=== PATIENT | female | born 1960 | race Caucasian/White ===

== ENCOUNTER 2016-11-15 08:32 | Emergency (ER) | payer MEDICAID ==
--- NOTE | 2016-11-15 08:41 | EDPHY ---
H & P Time Seen by Provider: 11/15/16 08:32 HPI/ROS: CHIEF COMPLAINT: Left shoulder pain HISTORY OF PRESENT ILLNESS: Patient is a 56-year-old female from the [facility] with a history of heroin abuse who comes to the emergency department complaining of left shoulder pain. She states that she has chronic left shoulder pain and that is chronically dislocated. She states that she felt at shift a little last night in that is been hurting more since then. She has normal range of motion in her elbow and wrist. She can lift herself off of the gurney to transfer to the other gurney. She states that she cannot lift her arm above 90 degrees however. She has been referred to Orthopedics and to have an MRI but she has not done these yet. She does not think that this is cardiac. She denies chest pain or shortness of breath. She does state that she has chronic neck problems as well. REVIEW OF SYSTEMS: Constitutional: denies: chills, fever, recent illness, recent injury EENTM: denies: blurred vision, double vision, nose congestion Respiratory: denies: cough, shortness of breath Cardiac: denies: chest pain, irregular heart rate, lightheadedness, palpitations Gastrointestinal/Abdominal: denies: abdominal pain, diarrhea, nausea, vomiting, blood streaked stools Genitourinary: denies: dysuria, frequency, hematuria, pain Musculoskeletal: See HPI Skin: denies: lesions, rash, jaundice, bruising Neurological: denies: headache, numbness, paresthesia, tingling, dizziness, weakness Hematologic/Lymphatic: denies: blood clots, easy bleeding, easy bruising Immunologic/allergic: denies: HIV/AIDS, transplant EXAM: GENERAL: Well-appearing, well-nourished and in no acute distress. HEAD: Atraumatic, normocephalic. EYES: Pupils equal round and reactive to light, extraocular movements intact, sclera anicteric, conjunctiva are normal. ENT: TMs normal, nares patent, oropharynx clear without exudates. Moist mucous membranes. NECK: Normal range of motion, supple without lymphadenopathy or JVD. LUNGS: Breath sounds clear to auscultation bilaterally and equal. No wheezes rales or rhonchi. HEART: Regular rate and rhythm without murmurs, rubs or gallops. ABDOMEN: Soft, nontender, normoactive bowel sounds. No guarding, no rebound. No masses appreciated. BACK: No CVA tenderness, no spinal tenderness, step-offs or deformities EXTREMITIES: Left shoulder pain, limited range of motion, normal pulses and sensation distally. NEUROLOGICAL: Cranial nerves II through XII grossly intact. Normal speech, normal gait. 5/5 strength, normal movement in all extremities, normal sensation PSYCH: Normal mood, normal affect. SKIN: Warm, dry, normal turgor, no visible rashes or lesions. Source: Patient Exam Limitations: No limitations - Medical/Surgical History Hx Asthma: No Hx Chronic Respiratory Disease: No Hx Diabetes: No Hx Cardiac Disease: No Hx Renal Disease: No Hx Cirrhosis: No Hx Alcoholism: Yes - Family History Significant Family History: Hypertension - Social History Smoking Status: Current every day smoker Alcohol Use: Heavy Drug Use: Other Constitutional: Initial Vital Signs Temperature (C) 36.5 C 11/15/16 08:55 Heart Rate 81 11/15/16 08:55 Respiratory Rate 16 11/15/16 08:55 Blood Pressure 118/78 11/15/16 08:55 O2 Sat (%) 92 11/15/16 08:55 O2 Delivery Mode Room Air Allergies/Adverse Reactions: No Known Allergies Allergy (Unverified 11/15/16 08:55) Home Medications: Medication Instructions Recorded GABAPENTIN 11/15/16 Lisinopril 11/15/16 Medical Decision Making - Diagnostics EKG Interpretation: An EKG obtained and was read and documented in trace view. Please see trace view for full reading and report. Sinus rhythm, no acute ischemic changes ED Course/Re-evaluation: We discussed the x-ray results. The patient has a chronic dislocation. I recommended we place her in a sling and have her follow up with Orthopedics. She has been told this before and is frustrated. She was asking to have an MRI which at this time is not warranted. She is neurovascularly intact and has normal range of motion. She can even pick herself up off the bed with her arms. She is somewhat frustrated but understands. She was also asking for narcotics which I declined to give her. Differential Diagnosis: Partial list of the Differential diagnosis considered include but were not limited to; left shoulder dislocation, fracture, radiculopathy and although unlikely based on the history and physical exam, I also considered infection, acute coronary disease. I discussed these differential diagnoses and the plan with the patient as well as the usual and expected course. The patient understands that the diagnosis is provisional and that in medicine we are not always correct and that further workup is often warranted. Usual and customary warnings were given. All of the patient's questions were answered. The patient was instructed to return to the emergency department should the symptoms at all worsen or return, otherwise to followup with the physician as we discussed. Departure - Departure Disposition: Home, Routine, Self-Care Clinical Impression: Chronic dislocation of left shoulder Condition: Fair Instructions: Shoulder Dislocation (ED) Referrals: Patient,NotPresent [Unknown] - As per Instructions Jass Montgomery MD [Medical Doctor] - As per Instructions
--- NOTE | 2016-11-15 08:52 | CPEKG ---
Heart Rate: 84 RR Interval: 714 P-R Interval: 140 QRSD Interval: 92 QT Interval: 384 QTC Interval: 454 P [place]: 74 QRS [place]: 34 T Wave [place]: 53 EKG Severity - ABNORMAL ECG - EKG Impression: SINUS RHYTHM EKG Impression: CONSIDER LEFT VENTRICULAR HYPERTROPHY EKG Impression: BORDERLINE INFERIOR Q WAVES Electronically Signed By: Balaji Carmichael 15-Nov-2016 09:02:00
[2016-11-15 10:36] VITALS: BP 125/68; PULSE 86; RESP 18; TEMP 98.2; O2SAT 98
== END 2016-11-15 10:35 | disposition home or self-care (01) ==
DX: M24.412 Recurrent dislocation, left shoulder (principal); F17.200 Nicotine dependence, unspecified, uncomplicated

== ENCOUNTER 2017-03-07 08:04 | Emergency (ER) | payer MEDICAID ==
[2017-03-07 08:12] VITALS: TEMP 97.9
--- NOTE | 2017-03-07 08:18 | EDPHY ---
H & P Time Seen by Provider: 03/07/17 08:18 HPI/ROS: CHIEF COMPLAINT: Left knee/leg pain following fall yesterday HISTORY OF PRESENT ILLNESS: The patient presents the emergency department by paramedics with complaints of left knee and leg pain following a mechanical fall yesterday. The patient reportedly tripped while walking on rocks. She did not strike her head or lose consciousness. She states she has had painful ambulation since that time. She cannot fully weight bear secondary to pain in her left knee and below her left knee. The patient denies any acute numbness or weakness. The patient denies additional complaints. The patient does have a history of narcotic abuse. She was seen in the emergency department in October of this year for right shoulder pain. REVIEW OF SYSTEMS: A comprehensive 10 point review of systems is otherwise negative aside from elements mentioned in the history of present illness. Source: Patient Exam Limitations: No limitations - Personal History Current Tetanus/Diphtheria Vaccine: Unsure Current Tetanus Diphtheria and Acellular Pertussis (TDAP): Unsure - Medical/Surgical History Hx Asthma: No Hx Chronic Respiratory Disease: No Hx Diabetes: No Hx Cardiac Disease: No Hx Renal Disease: No Hx Cirrhosis: No Hx Alcoholism: Yes Hx HIV/AIDS: No Hx Splenectomy or Spleen Trauma: No Other PMH: mitral valve prolapse. chronic L shoulder dislocation - Social History Smoking Status: Current every day smoker - Physical Exam Exam: General Appearance: Alert, disheveled, no acute distress Eyes: Pupils equal and round no pallor or injection ENT, Mouth: Mucous membranes moist Respiratory: There are no retractions, lungs are clear to auscultation Cardiovascular: Regular rate and rhythm Gastrointestinal: Abdomen is soft and nontender, no masses, bowel sounds normal Neurological: A&O, normal motor function, normal sensory exam, normal cranial nerves Skin: Superficial abrasions and old scabs noted to left knee, no cellulitis, no abscess Musculoskeletal: Neck is supple nontender Extremities: Tenderness to palpation left knee, small effusion, tenderness to palpation left proximal tibia/fibula Constitutional: Initial Vital Signs Temperature (C) 36.6 C 03/07/17 08:08 Allergies/Adverse Reactions: No Known Allergies Allergy (Unverified 11/15/16 08:55) Home Medications: Medication Instructions Recorded GABAPENTIN 11/15/16 Lisinopril 11/15/16 Medical Decision Making - Diagnostics Imaging Results: Imaging Impressions Knee X-Ray 03/07/17 08:20 Impression: 1. Mild bone demineralization. 2. Patella radha with pre- and infrapatellar soft tissue swelling. An injury to the patellar tendon is not excluded. This could be further evaluated with MR imaging, if clinically directed. 3. Degenerative features. LEFT TIBIA-FIBULA (AP and Lateral Views, at 8:38 AM): The bones are mildly demineralized; when clinically feasible, a DEXA scan is suggested. The patient has had prior remote ORIF for distal fibular and medial malleolar fractures, which have since healed. There is no periprosthetic lucency. There is no acute fracture or dislocation. Impression: 1. Mild bone demineralization. 2. Sequela of prior ORIF of the medial malleolus and distal fibula. 3. No acute osseous abnormality. Tibia/Fibula X-Ray 03/07/17 08:20 Impression: 1. Mild bone demineralization. 2. Patella radha with pre- and infrapatellar soft tissue swelling. An injury to the patellar tendon is not excluded. This could be further evaluated with MR imaging, if clinically directed. 3. Degenerative features. LEFT TIBIA-FIBULA (AP and Lateral Views, at 8:38 AM): The bones are mildly demineralized; when clinically feasible, a DEXA scan is suggested. The patient has had prior remote ORIF for distal fibular and medial malleolar fractures, which have since healed. There is no periprosthetic lucency. There is no acute fracture or dislocation. Impression: 1. Mild bone demineralization. 2. Sequela of prior ORIF of the medial malleolus and distal fibula. 3. No acute osseous abnormality. ED Course/Re-evaluation: The patient presents to the ED with complaints of left knee extremity pain following a mechanical fall yesterday. The patient has no evidence of an obvious fracture noted on her x-ray. The patient will be provided crutches. She is advised to follow up with our on-call orthopedic surgeon for any unimproved symptoms. She should ice area of swelling. She should weightbear as tolerated. She should use ibuprofen as needed for pain. Differential Diagnosis: Differential diagnosis considered includes fracture, sprain, dislocation Departure - Departure Disposition: Home, Routine, Self-Care Clinical Impression: Contusion of left knee Condition: Good Instructions: Contusion in Adults (ED) Additional Instructions: 1. Take Ibuprofen or Motrin 600 mg by mouth three times a day. 2. Crutches as needed for comfort. 3. Follow up with the orthopedic surgeon you have been referred to for any unimproved symptoms. 4. Apply ice for 20 minutes 4 to 5 times a day for next 3 days. Referrals: John Hart MD [Medical Doctor] - As per Instructions
== END 2017-03-07 09:45 | disposition home or self-care (01) ==
LOC: EDUNIT#
DX: S80.02XA Contusion of left knee, initial encounter (principal); F17.200 Nicotine dependence, unspecified, uncomplicated; W01.0XXA Fall on same level from slipping, tripping and stumbling without subsequent striking against object, initial encounter; Y92.89 Other specified places as the place of occurrence of the external cause; Y99.8 Other external cause status; Y93.01 Activity, walking, marching and hiking

== ENCOUNTER 2017-03-13 13:39 | Inpatient (IN) | payer MEDICAID ==
[2017-03-13] MEDS ORDERED: fentaNYL 100 MCG/2 ML INJ ONE (14:31)
[2017-03-13 14:38] LABS: PLATELET COUNT 240 10^3/uL (150-400)
[2017-03-13] MEDS ORDERED: fentaNYL 100 MCG/2 ML INJ IVP ONE (14:50)
[2017-03-13] MEDS ORDERED: VANCOMYCIN HCL/NORMAL SALINE 250 ML IV ONE (14:51)
[2017-03-13] MEDS ORDERED: ERTAPENEM 1 GM in NS 100 ML IV ONE (14:51)
--- NOTE | 2017-03-13 15:43 | EDPHY ---
H & P Smoking Status: Current every day smoker Time Seen by Provider: 03/13/17 13:48 HPI/ROS: CHIEF COMPLAINT: Infection left leg HISTORY OF PRESENT ILLNESS: 56-year-old homeless female presents to the emergency department with infection to her left leg. Patient states that she tripped over a rock and fell sustaining an abrasion to the anterior aspect of her left knee a few weeks ago. She did not hit her head or lose consciousness. She presented to the emergency department 1 week ago where she had x-rays which were negative for fracture. She presents now to the emergency department with swelling, redness and severe pain in her left leg. She is homeless. Unknown fevers. No chills. Diffuse pain in her left leg. No pain in her groin. No chest pain or difficulty breathing. No abdominal pain. No neck or back pain. REVIEW OF SYSTEMS: Constitutional: No fever, no chills. Eyes: No double or blurry vision. ENT: No sore throat. Respiratory: No cough, no shortness of breath. Cardiac: No chest pain. Gastrointestinal: No abdominal pain, vomiting or diarrhea. Genitourinary: No dysuria. Musculoskeletal: No neck or back pain. Skin: As above. Neurological: No headache. (Ruth Dugan) Past Medical/Surgical History: Mitral valve prolapse, shoulder dislocations (Ruth Dugan) Social History: Homeless (Ruth Dugan) Physical Exam: General Appearance: Alert, no distress. Temperature 37.5degrees. Nontoxic appearing. Eyes: Pupils equal and round. Extraocular motions are all intact. ENT: Mouth: Mucous membranes moist. Respiratory: No wheezing, rhonchi, or rales, lungs are clear to auscultation. Cardiovascular: Regular rate and rhythm. Gastrointestinal: Abdomen is soft and nontender, no masses, no rebound or guarding, bowel sounds normal. Neurological: Alert and oriented x 3, cranial nerves II through XII grossly intact Skin: Left leg reveals diffuse redness and warmth from the knee all the way down to her ankle. She has pedal edema. Diffusely tender to palpate. Limited flexion left knee secondary to pain. No lymphangitis. Musculoskeletal: Nontender to palpate along the cervical, thoracic or lumbar spine. Neck is supple. Extremities: See skin above. No palpable bony tenderness. No evidence of compartment syndrome. Decreased flexion of the left knee secondary to pain and swelling. No obvious signs of septic arthritis. Psychiatric: Patient is oriented X 3, there is no agitation. (Ruth Dugan) Constitutional: Initial Vital Signs Temperature (C) 37.5 C 03/13/17 13:51 Heart Rate 113 H 03/13/17 13:51 Respiratory Rate 16 03/13/17 13:51 Blood Pressure 134/88 H 03/13/17 13:51 O2 Sat (%) 95 03/13/17 13:51 O2 Delivery Mode Room Air Allergies/Adverse Reactions: No Known Allergies Allergy (Verified 03/13/17 13:59) Home Medications: Medication Instructions Recorded Gabapentin [Neurontin 400 MG (*)] 1,200 mg PO TID 03/13/17 Medical Decision Making - Diagnostics Imaging Results: Imaging Impressions Tibia/Fibula X-Ray 03/13/17 15:00 Impression: 1. No acute fracture or destructive osseous lesion. 2. Left ankle hardware. Procedures: Procedure: Abscess drainage. The patient's abscess was located on the left knee. Risks, benefits, alternatives discussed with the patient and consent obtained. The abscess was incised with a #11 blade and large amount of purulent drainage, 150mL, was expressed. The patient tolerated the procedure well. The procedure was performed by myself. (Ruth Dugan) ED Course/Re-evaluation: 56-year-old female with significant cellulitis to her left lower leg. She also had area of fluctuance to the anterior aspect of her left knee just distal to the patella. This was incised, see procedure note. The patient will be admitted to the hospital for IV antibiotics. I also spoke with the on-call surgeon, Dr. Monroy, who also evaluated the patient. I do not appreciate any signs of compartment syndrome. She may require further incision and drainage that is why this general surgeon was contacted. She was started on Invanz and vancomycin in the emergency department. Blood cultures are pending. Wound cultures pending. I do not think this patient is septic. Lactate is 1.5. The patient was also seen and examined by Dr. Bonilla, secondary supervising physician. (Ruth Dugan) Differential Diagnosis: Including but not limited to cellulitis, abscess, contusion, abrasion, osteomyelitis, septic arthritis (Ruth Dugan) Other Provider: Independent physician examination: I independently obtained the following history and physical: The patient sustained a superficial abrasion below the left knee one week ago. She presents to the ED with marked redness and fluctuance to the leg. Examination demonstrates cellulitis with a superficial cutaneous abscess. This was drained by the PA under my supervision. The patient's initial lactic acid is reassuring. She is started on Vancomycin and Invanz after blood and wound cultures were obtained. She will be admitted to the hospital under the care of the hospital. Surgery consultation has been ordered. (Zac Bonilla) - Data Points Laboratory Results: Laboratory Results 03/13/17 14:25 03/13/17 14:25 03/13/17 03/13/17 03/13/17 14:25 14:25 14:25 WBC 11.22 10^3/uL H 10^3/uL (3.80-9.50) RBC 4.98 10^6/uL 10^6/uL (4.18-5.33) Hgb 16.2 g/dL g/dL (12.6-16.3) Hct 43.6 % % (38.0-47.0) MCV 87.6 fL fL (81.5-99.8) MCH 32.5 pg pg (27.9-34.1) MCHC 37.2 g/dL H g/dL (32.4-36.7) RDW 13.0 % % (11.5-15.2) Plt Count 240 10^3/uL 10^3/uL (150-400) MPV 11.5 fL fL (8.7-11.7) Neut % (Auto) 76.4 % H % (39.3-74.2) Lymph % (Auto) 6.5 % L % (15.0-45.0) [place] % (Auto) 14.0 % H % (4.5-13.0) Eos % (Auto) 1.1 % % (0.6-7.6) Baso % (Auto) 1.1 % % (0.3-1.7) Nucleat RBC Rel Count 0.0 % % (0.0-0.2) Absolute Neuts (auto) 8.58 10^3/uL H 10^3/uL (1.70-6.50) Absolute Lymphs (auto) 0.73 10^3/uL L 10^3/uL (1.00-3.00) Absolute Monos (auto) 1.57 10^3/uL H 10^3/uL (0.30-0.80) Absolute Eos (auto) 0.12 10^3/uL 10^3/uL (0.03-0.40) Absolute Basos (auto) 0.12 10^3/uL H 10^3/uL (0.02-0.10) Absolute Nucleated RBC 0.00 10^3/uL 10^3/uL (0-0.01) Immature Gran % 0.9 % % (0.0-1.1) Immature Gran # 0.10 10^3/uL 10^3/uL (0.00-0.10) VBG Lactic Acid 1.5 mmol/L mmol/L (0.7-2.1) Sodium 135 mEq/L mEq/L (134-144) Potassium 3.4 mEq/L L mEq/L (3.5-5.2) Chloride 98 mEq/L mEq/L (97-110) Carbon Dioxide 22 mEq/l mEq/l (22-31) Anion Gap 15 mEq/L mEq/L (8-16) BUN 10 mg/dL mg/dL (7-23) Creatinine 0.5 mg/dL L mg/dL (0.6-1.0) Estimated GFR > 60 Glucose 96 mg/dL mg/dL (70-100) Calcium 8.2 mg/dL L mg/dL (8.5-10.4) Medications Given: Hydromorphone HCl (Dilaudid) 0.2 - 0.4 mg IVP Q4HRS PRN PRN Reason: Pain, Severe Unable to Take PO Stop: 03/23/17 17:50 Last Admin: 03/13/17 18:43 Dose: 0.4 mg Potassium Chloride/Sodium Chloride (Ns W/ 20 Kcl/L) 1,000 mls @ 125 mls/hr IV CONT VIANNEY Stop: 09/09/17 17:59 Last Admin: 03/13/17 18:23 Dose: 1,000 mls Vancomycin/Sodium Chloride (Vancomycin 1 Gm (Premix)) 250 mls @ 250 mls/hr IV Q12H VIANNEY Stop: 04/12/17 18:29 Last Admin: 03/13/17 18:23 Dose: Not Given Nicotine (Nicoderm Cq) 14 mg TD DAILY VIANNEY Stop: 09/09/17 18:14 Last Admin: 03/13/17 18:20 Dose: 14 mg Oxycodone HCl (Oxycodone Ir) 5 - 10 mg PO Q3HRS PRN PRN Reason: Pain, Severe Able to Take PO Stop: 03/23/17 17:50 Last Admin: 03/13/17 19:38 Dose: 5 mg Discontinued Medications Fentanyl (Sublimaze) 50 mcg IVP EDNOW ONE Stop: 03/13/17 14:51 Last Admin: 03/13/17 15:00 Dose: 50 mcg Ertapenem 1 gm/ Sodium (Chloride) 100 mls @ 200 mls/hr IV EDNOW ONE PRN Reason: Protocol Stop: 03/13/17 15:20 Last Admin: 03/13/17 15:22 Dose: 100 mls Vancomycin/Sodium Chloride (Vancomycin 1 Gm (Premix)) 250 mls @ 250 mls/hr IV EDNOW ONE PRN Reason: Protocol Stop: 03/13/17 15:50 Last Admin: 03/13/17 18:11 Dose: 250 mls Sodium Chloride (Ns) 1,000 mls @ 0 mls/hr IV ONCE ONE PRN Reason: Wide Open Stop: 03/13/17 17:55 Last Admin: 03/13/17 18:21 Dose: 1,000 mls Departure - Departure Disposition: [facility] Clinical Impression: Cellulitis of left leg Condition: Fair
[2017-03-13] MEDS ORDERED: GADOBUTROL 10 ML VIAL IVP ONE (16:51)
[2017-03-13] MEDS ORDERED: ONDANSETRON 4 MG/2 ML VIAL IVP PRN (17:51)
[2017-03-13] MEDS ORDERED: ONDANSETRON DISINTEGRATING 4 MG TAB PO PRN (17:51)
[2017-03-13] MEDS ORDERED: NS 1,000 ML IV ONE (17:54)
[2017-03-13] MEDS: oxyCODONE IR 5 MG TAB PO PRN ×2 (18:16→19:38)
[2017-03-13] MEDS: NICOTINE 14 MG/24 HR PATCH TD SCH (18:20)
[2017-03-13] MEDS: NS W/ 20 KCl/L 1,000 ML IV SCH (18:23)
[2017-03-13] MEDS: VANCOMYCIN HCL/NORMAL SALINE 250 ML IV SCH (18:23)
--- NOTE | 2017-03-13 18:31 | GHP ---
[f rep st] HISTORY AND PHYSICAL DATE OF ADMISSION: 03/13/2017 CHIEF COMPLAINT: Left lower extremity pain and redness. HISTORY OF PRESENT ILLNESS: The patient is a 56-year-old homeless female with a history of chronic pain, who presents to the emergency department with left lower extremity pain, redness, and fever. She states about a month ago she fell , landing on a rock, which caused an abrasion on her left knee. She denies hitting her head or any loss of consciousness during that event. She was not seen in the emergency department at that time. However, 1 week ago, she presented to the ED due to pain and swelling around her left knee. At that time , a knee and tib-fib x-ray were performed, which were negative for fracture, though did show some pre and infrapatellar soft tissue swelling. She was not treated with antibiotics at that time. Over the course of the last week, her pain has become more severe. The redness is now circumferential, extending distally, as well as proximally up into her thigh. She began to have some drainage out of the anterior knee abrasion. In addition, she endorses subjective fevers. However, she notes she has not been able to check her temperature given her homeless status. She denies chest pain or shortness of breath. She denies abdominal symptoms, such as nausea, vomiting, diarrhea, dysuria, frequency, or urgency. In the emergency department, she is afebrile and appears nontoxic, though she is tachycardic. She was given a dose of ertapenem and vancomycin. A repeat x-ray was performed, which was again negative for fracture and showed no obvious subcutaneous air. She is admitted to the hospital for further management. PAST MEDICAL HISTORY: 1. Chronic right shoulder pain with history of prior dislocations, on gabapentin. 2. History of mitral valve prolapse. MEDICATIONS: Please see [employer] for complete updated outpatient medication list. ALLERGIES: She has no known drug allergies. SOCIAL HISTORY: The patient is homeless. She smokes a half to 1 pack of cigarettes per day. She reports occasional alcohol and occasional marijuana use. REVIEW OF SYSTEMS: A 10-point review of systems was performed and is negative, except as per HPI. OBJECTIVE: VITAL SIGNS: Temperature is 37.6, blood pressure 119/78, respiratory rate 18, heart rate 111. She is 92% on room air. GENERAL: The patient is awake, alert, and oriented, in no acute distress. HEENT: Head is atraumatic, normocephalic. Pupils equal, round, and reactive to light. Extraocular muscles are intact. Oropharynx is clear. Mucous membranes are moist. NECK: Supple. There is no JVD. HEART: Regular rate and rhythm, without murmur. LUNGS: Clear to auscultation bilaterally. ABDOMEN: Soft, nondistended, nontender, with normoactive bowel tones. EXTREMITIES: Her left lower extremity reveals bright red erythema, which is circumferential around her proximal anterior tibia, extending down to her ankle, as well as proximally into her medial thigh. There is no associated groin lymphadenopathy. There is a marked amount of purulent drainage from her anterior knee abrasion and what looks like a recent bulla that has since been drained. A wound culture is sent. Her extremities are otherwise warm and well perfused, with 2+ peripheral pulses. Tib-fib x-ray in the emergency department is negative for fracture, shows diffuse soft tissue swelling, with no destructive osseous lesions. Fixation plate and screws are noted in the distal fibula and oblique left lateral malleolus, in adequate alignment. Wound gram stain: 4+ GPC's ASSESSMENT/PLAN: The patient is a 56-year-old homeless female who is admitted to the hospital with left lower extremity cellulitis. 1. Left lower extremity purulent cellulitis. She does not meet SIRS criteria for sepsis. Her lactate is normal. She is afebrile. The purulent drainage from her anterior tibia was sent for culture. Blood cultures were obtained. She received a dose of ertapenem and vancomycin in the ED. I suspect staphylococcal organism. Will continue vancomycin while awaiting culture data. Check MRI to rule out any fascial involvement, abscess or focal fluid collection. Surgery has been consulted and will see the patient. I have also requested Infectious Disease consult. She will receive an IV fluid bolus now. Will continue IV fluids overnight and monitor her hemodynamics. Supportive care and pain control. 2. Hypokalemia. Will replace and follow. 3. Tobacco abuse. Nicoderm patch p.r.n. 4. Chronic shoulder pain. We will continue her outpatient gabapentin dose. 5. Deep venous thrombosis prophylaxis, Lovenox. 6. Code status: Patient is full code. 7. Disposition: Patient was admitted to inpatient status. She will require greater than 48 hours' hospitalization for ongoing management of her moderate to severe purulent cellulitis. /[id number]/MODL MTDD
[2017-03-13] MEDS: HYDROmorphONE/DILAUDID 1 MG/ML INJ IVP PRN (18:43)
[2017-03-13] MEDS: GABAPENTIN 400 MG CAP PO SCH (21:40)
[2017-03-14] MEDS: oxyCODONE IR 5 MG TAB PO PRN ×2 (00:15→03:59)
[2017-03-14] MEDS: HYDROmorphONE/DILAUDID 1 MG/ML INJ IVP PRN ×2 (04:42→16:27)
[2017-03-14 05:21] LABS: PLATELET COUNT 206 10^3/uL (150-400)
[2017-03-14] MEDS: VANCOMYCIN HCL/NORMAL SALINE 250 ML IV SCH (05:50)
[2017-03-14] MEDS ORDERED: BACITRACIN 50,000 UNITS/10 ML SYR IRR ONE (08:50)
--- NOTE | 2017-03-14 09:01 | PDANEPAE ---
ANE Past Medical History - Cardiovascular History Hx Hypertension: Yes Hx CHF / Valvular Disease: Yes - Pulmonary History Hx COPD: Yes Hx Asthma/Reactive Airway Disease: Yes Hx Oxygen in Use at Home: No Hx Sleep Apnea: No Sleep Apnea Screening Result - Last Documented: Positive - Endocrine History Hx Diabetes: No - Liver History Hx Hepatic Disorders: Yes Hepatic History Comment: hx of hep c - Chronic Pain History Chronic Pain: Yes ANE Review of Systems Review of Systems: ANE Patient History - Allergies Allergies/Adverse Reactions: No Known Allergies Allergy (Verified 03/13/17 13:59) - Home Medications Home Medications: Gabapentin [Neurontin 400 MG (*)] 1,200 mg PO TID 03/13/17 [Last Taken 03/13/17 08:00] - Smoking Hx Smoking Status: Current every day smoker Marijuana use: Yes - Alcohol Use Alcohol Use: Occasionally ANE Labs/Vital Signs - Labs Result Diagrams: 03/14/17 04:52 03/14/17 04:52 - Vital Signs Blood Pressure: 147/89 Heart Rate: 117 Respiratory Rate: 20 O2 Sat (%): 90 Height: 157.48 cm Weight: 62.596 kg ANE Physical Exam - Airway Mallampati Score: Class 2 - ASA Status ASA Status: III ANE Anesthesia Plan Anesthesia Plan: general endotracheal anesthesia, GA w LMA
[2017-03-14] MEDS ORDERED: MIDAZOLAM 2 MG/2 ML VIAL ONE (09:03)
[2017-03-14] MEDS ORDERED: ONDANSETRON 4 MG/2 ML VIAL ONE (09:04)
[2017-03-14] MEDS ORDERED: fentaNYL 100 MCG/2 ML INJ ONE (09:04)
[2017-03-14] MEDS ORDERED: LIDOCAINE 2% JELLY 5 ML TUBE ONE (09:04)
[2017-03-14] MEDS ORDERED: PROPOFOL 200 MG/20 ML VIAL ONE (09:04)
[2017-03-14] MEDS ORDERED: METOCLOPRAMIDE 10 MG/2 ML VIAL ONE (09:04)
[2017-03-14] MEDS ORDERED: PHENYLEPHRINE HCL 100 MCG/ML SYR ONE (09:18)
[2017-03-14] MEDS ORDERED: ALBUTEROL 3 ML DEYVIAL IH PRN (09:59)
[2017-03-14] MEDS ORDERED: NALOXONE HCL 0.4 MG/ML INJ IVP PRN (09:59)
[2017-03-14] MEDS ORDERED: LR 500 ML IV PRN (09:59)
[2017-03-14] MEDS ORDERED: fentaNYL 100 MCG/2 ML INJ IVP PRN (09:59)
--- NOTE | 2017-03-14 10:00 | POSTANESTH ---
Post Anesthetic Evaluation Cardiovascular Status: Similar to Pre-Op Cond Respiratory Status: Similar to Pre-op Cond. Level of Consciousness/Mental Status: Can Participate in Eval Pain Control: Adequate, Prn Tx Ordered Nausea/Vomiting Control: Adequate, Prn Tx Ordered Complications Possibly Related to Anesthesia: None Noted
--- NOTE | 2017-03-14 10:00 | POSTOPPROG ---
Post Op Note Date of Operation: 03/14/17 Surgeon: Venancio Huston Anesthesia: LMA Pre-op Diagnosis: wound left proximal lower leg ( presume MRSA until proven otherwise) Post-op Diagnosis: wound left proximal lower leg ( presume MRSA until proven otherwise) Indication: wound left proximal lower leg ( presume MRSA until proven otherwise) Procedure: I&D wound with debridement and irrigation, wound vac placement Findings: wound left proximal lower leg ( presume MRSA until proven otherwise) Inf/Abcess present in the surg proc area at time of surgery?: Yes Depth: Superfical (Skin SQ) EBL: Minimal Total fluids administered: 500cc Complications: none Drains: Wound Vac Specimen(s): none
--- NOTE | 2017-03-14 10:31 | PDMN ---
Medical Necessity Medical necessity: est los>2mn for moderate to severe LLE purulent cellulitis, and hypokalemia; for I&D with wound vac placement, IV abx; comorbid chronic pain, MV prolapse, homelessness; per order and H&P 03/13/17
[2017-03-14] MEDS: NICOTINE 14 MG/24 HR PATCH TD SCH (10:39)
[2017-03-14] MEDS: GABAPENTIN 400 MG CAP PO SCH ×3 (11:58→21:11)
[2017-03-14] MEDS: ENOXAPARIN 40 MG/0.4 ML SYR SC SCH (11:59)
--- NOTE | 2017-03-14 12:54 | HOSPPROG ---
Hospitalist Progress Note Assessment/Plan: 56y female with c/o leg pain. First encounter, chart reviewed. D/W ID and surgery. #LLE cellulitis to OR wound vac place abx per ID #Hypokalemia replace #Tobacco abuse education #Tachy order EKG #Hx of asthma monitor O2 #Homeless d/w CM #Dispo unclear, needs further treatment in house IV abx and wound vac Subjective: Feels ok. Pain currently controlled. Eager to eat. Objective: Vital Signs Temp Pulse Resp BP Pulse Ox 36.9 C 105 H 18 120/62 94 03/14/17 12:45 03/14/17 12:45 03/14/17 12:45 03/14/17 12:45 03/14/17 12:45 Laboratory Results 03/14/17 04:52 03/14/17 04:52 03/13/17 03/14/17 03/15/17 05:59 05:59 05:59 Intake Total 500 900 Output Total 301 10 Balance 199 890 - Physical Exam Constitutional: not in pain, chronically ill appearing, unkempt Eyes: PERRL, anicteric sclera, EOMI Ears, Nose, Mouth, Throat: moist mucous membranes, hearing normal, ears appear normal Cardiovascular: tachycardia, No JVD, No edema Respiratory: no respiratory distress, no rales or rhonchi, reduced air movement Gastrointestinal: normoactive bowel sounds, No tenderness, No ascites Skin: warm, abrasion, erythema Musculoskeletal: joint tenderness, pain with ROM, generalized weakness Neurologic: AAOx3 Psychiatric: not anxious, not encephalopathic, poor insight, poor judgement ICD10 Worksheet Patient Problems: Problems Problem Status Onset Cellulitis of left leg Acute
--- NOTE | 2017-03-14 13:01 | GOP ---
[f rep st] OPERATIVE REPORT DATE OF OPERATION: 03/14/2017 SURGEON: Venancio Huston MD ANESTHESIA: By laryngeal mask. PREOPERATIVE DIAGNOSIS: Left proximal lower leg wound (presumed MRSA until proven otherwise). POSTOPERATIVE DIAGNOSIS: Left proximal lower leg wound (presumed MRSA until proven otherwise). PROCEDURE PERFORMED: I and D of the wound with debridement and irrigation, wound VAC placement. There was a subcutaneous abscess present that had previously been cultured and which had shown gram-positive cocci. FINDINGS: Left proximal lower leg wound (presumed MRSA until proven otherwise) that is down to but no through periosteum. It extends in the subcutaneous tissue from the lower border of the patella inferiorly ~12 cm and laterally to the mid lateral portion of the calf and medially 2cmm medial to tibia. SPECIMENS: None. ESTIMATED BLOOD LOSS: Minimal. INDICATIONS: Left proximal lower leg wound (presumed MRSA until proven otherwise). DESCRIPTION OF PROCEDURE: The patient is placed on the operating table in the supine position. She is placed under general anesthesia by laryngeal mask. A surgical time-out has been carried out and agreed to by all members of the operative team. Left lower leg is carefully prepped from the level of the ankle to above the knee. A stockinette is placed on the foot and wrapped with Coban. An extremity drape is used. A transverse incision has been made at the level of the tibial tuberosity. In probing through this, I find the deepest extent of the wound is inferiorly along the anterior tibia. The skin is incised inferiorly and superiorly to over the inferior aspect of the patella. It tracks mainly laterally. Bone is not exposed but a short section of the anterior aspect of the infra-patellar quadriceps tendon is exposed. Subcutaneous tissue is well debrided. Irrigation using a pulsed lavage with bacitracin is used. Hemostasis is found to be excellent. The wound VAC is carefully placed. Mastisol is placed on the skin. A wound VAC plastic is positioned, as is the suction connector. There is no leak identified. The ankle is wrapped with Kerlix. This extends down to the foot at the level of the toes then is brought up to just below the wound VAC. 4-inch Aaron is also used in the same distribution. The patient is transferred to recovery in stable and satisfactory condition. FLUIDS: 500 cc. COMPLICATIONS: None. DRAIN: Wound VAC. /[id number]/MODL MTDD
--- NOTE | 2017-03-14 13:26 | GCON ---
[f rep st] CONSULTATION REASON FOR CONSULTATION: Infection, left lower leg. HISTORY OF THE PRESENT ILLNESS: History is well summarized in the chart, that she fell approximately a month ago and was seen in the ER. There was no evidence of a fracture at that time. Approximatel y 1 week ago, she came back and had some infrapatellar swelling. Antibiotics were not dispensed. Rico barakat came in yesterday with a purulent wound. An x-ray was performed, which showed no acute fracture or destructive osseous lesion. Left ankle hardware (same leg) was noted. The lower extremity MRI has been performed but there is no evidence of osteomyelitis. It showed severe cellulitis and myositis o f the left leg. PHYSICAL EXAMINATION: On today's examination, she is afebrile. Her heart rate is in the 108 range w ith a blood pressure 147/94. LABORATORY DATA: Shows white count which has gone from 11.2 to 8.4. Neutrophils have gone from 76% to 69%. Platelet count has gone from 240 to 206. Her Gram stain shows gram-positive cocci. The wound this morning is an area of contusion and swelling, which goes from the level of the tibial tuberosity inferiorly for approximately 6-7 cm. There was a transverse incision where someone appare ntly must have tried to drain this. It is producing a foul smelling, seropurulent fluid. IMPRESSION: It is my impression this patient has a drainable tissue and cellulitis. She is doing we ll on antibiotics. I feel her course will be improved by debridement and possible wound VAC placemen t. I do recommend that we elevate her leg and we push her oxygen saturations to 90% and she has 4+ e iglesia of that left lower leg. She will be going directly to the operating room. /[id number]/MODL
--- NOTE | 2017-03-14 14:26 | ASMTCASEMG ---
Living Arrangements What is your living Answers: Alone arrangement? Who do you live with? Type Of Residence What kind of residence do Answers: Homeless you live in? Discharge Plan Comments Coordination Status Comments Notes: Pt is a 56 y/o female admitted w/ cellulitis on her left leg. Pt currently has a wound vac. PT is recommending SNF. CM met w/ pt for dispo planning. Pt would like to go to rehab. Pt reports that she would like to stay in the [place] area and would like CM to make referrals to all [place] SNFs. CM faxed out referrals to SNF. CM completed ULTC-100 and faxed it to [facility]. CM faxed attach ULTC-100 document to [employer]. CM to follow. Date Signed: 03/14/2017 02:26 PM Electronically Signed By:ZACK Wilkerson
--- NOTE | 2017-03-14 14:26 | ASMTCASEMG ---
Living Arrangements What is your living Answers: Alone arrangement? Who do you live with? Type Of Residence What kind of residence do Answers: Homeless you live in? Discharge Plan Comments Coordination Status Comments Notes: Pt is a 56 y/o female admitted w/ cellulitis on her left leg. Pt currently has a wound vac. PT is recommending SNF. CM met w/ pt for dispo planning. Pt would like to go to rehab. Pt reports that she would like to stay in the [place] area and would like CM to make referrals to all [place] SNFs. CM faxed out referrals to SNF. CM completed ULTC-100 and faxed it to [facility]. CM faxed attach ULTC-100 document to [employer]. CM to follow. Date Signed: 03/14/2017 02:26 PM Electronically Signed By:ZACK Wilkerson
--- NOTE | 2017-03-14 14:26 | ASMTCASEMG ---
Living Arrangements What is your living Answers: Alone arrangement? Who do you live with? Type Of Residence What kind of residence do Answers: Homeless you live in? Discharge Plan Comments Coordination Status Comments Notes: Pt is a 56 y/o female admitted w/ cellulitis on her left leg. Pt currently has a wound vac. PT is recommending SNF. CM met w/ pt for dispo planning. Pt would like to go to rehab. Pt reports that she would like to stay in the [place] area and would like CM to make referrals to all [place] SNFs. CM faxed out referrals to SNF. CM completed ULTC-100 and faxed it to [facility]. CM faxed attach ULTC-100 document to [employer]. CM to follow. Date Signed: 03/14/2017 02:26 PM Electronically Signed By:ZACK Wilkerson
[2017-03-14] MEDS: ACETAMINOPHEN 325 MG TAB PO PRN (16:28)
[2017-03-14] MEDS: NS W/ 20 KCl/L 1,000 ML IV SCH (16:34)
--- NOTE | 2017-03-14 17:13 | GCON ---
[f rep st] CONSULTATION INFECTIOUS DISEASE CONSULTATION DATE OF CONSULTATION: 03/14/2017 REASON FOR CONSULTATION: Left lower extremity with a wound. CHIEF COMPLAINT: Left lower extremity redness. HISTORY OF PRESENT ILLNESS: This is a 56-year-old female who is homeless who states that s he fell on a rock about 1 month ago and had an abrasion to the left knee. She states that she was tr migdalia to keep the wound clean with soap and water. However, 1 week ago she started to notice increase d swelling around her left knee. She came into the ER and had an x-ray done, which showed swelling a round it. She did not have any cultures at the time and she was not given any antibiotics. She also did not have any labs done. She came back now because of increasing pain, redness, swelling. She a lso states she has been having fevers and chills as well. She underwent another x-ray which just con tinued to show diffuse soft tissue swelling. She then underwent an MRI which showed extensive left c estela cellulitis with mild myositis without a discrete abscess or subcutaneous air. She has also had p revious left ankle surgery with hardware present. Surgery saw the patient, and took the patient to t he OR today for an I and D of the wound and wound VAC placement. It was described as a very large stratton bcutaneous abscess without involvement of bone. A Gram stain of the wound done yesterday showed 1+ g john paul-positive cocci. The cultures are pending. The patient has been empirically put on vancomycin. The patient did have a leukocytosis of 11,000. She also had low-grade temperatures as well. She has been tachycardic as well. Infectious Disease is now consulted for further evaluation and opinion re garding the above. REVIEW OF SYSTEMS: GENERAL: Had fevers and chills in the outpatient. Had no headaches. EYES: No change in vision. ENT: No sore throat, difficulty swallowing, ear pain, or ear drainage. CARDIOVAS CULAR: Denies any chest pain or rapid heartbeat. RESPIRATORY: Denies any shortness of breath at pr esent. She does have a chronic . ABDOMEN: Has some intermittent nausea. Denies vomiting , abdominal pain, or diarrhea. : No dysuria, hematuria. BACK: No pain. MUSCULOSKELETAL: She c omplaints of arthritis all over. SKIN: No other wounds . The rest of 10-point review of systems essentially negative except above. PAST MEDICAL HISTORY: Significant for chronic right shoulder pain, history of mitral valve prolapse. She states she had breast cancer. PAST SURGICAL HISTORY: Significant for cholecystectomy, hysterectomy, left ankle surgery with hardwa re in place, left total hip replacement, breast lumpectomy. ALLERGIES: No known drug allergies. SOCIAL HISTORY: She is homeless. She smokes half a pack to 1 pack of cigarettes per day. She drink s alcohol occasionally. She uses marijuana occasionally. She denies any illicit drug usage. FAMILY HISTORY: Significant for hypertension. PHYSICAL EXAMINATION: VITAL SIGNS: Temperature current 36.9, pulse is 105, blood pressure 120/62, O 2, saturation 94% on room air. Her respiratory rate is 18. GENERAL: She is resting in bed, just ba ck from surgery at the time of my evaluation. She is awake, alert, and oriented. HEENT: Head is no rmocephalic, atraumatic. Eyes: Pupils are equal, round, reactive to light. No conjunctival injecti on. No petechiae. Oropharynx is clear. No posterior pharyngeal erythema noted or thrush. CARDIOVA SCULAR: S1, S2. Regular rate and rhythm. No murmurs appreciated. RESPIRATORY: Clear to auscultat e bilaterally. No rhonchi appreciated. ABDOMEN: Positive bowel sounds in all quadrants. Soft, non tender, nondistended. No organomegaly appreciated. EXTREMITIES: She has left lower extremity edema noted. Other pertinent findings, she has a moderate sized wound VAC noted just below her left merrill la and upper leg region. There is erythema noted around that area extending down to at least mid to lower leg. LABORATORY DATA: White blood cell count is 8.1, down from 11.2, platelets are 206, hemoglobin 14.4, neutrophil count 69%. Chemistry: Sodium 138, potassium 3.4, chloride 106, bicarb 22, BUN is 8, crea tinine 0.5. C-reactive protein is 78.7. Blood cultures x2 sets are pending. Wound culture from the left knee region shows complex gram-positive cocci. Cultures are pending. Imaging results have all been reviewed by me and are stated above. ASSESSMENT: Left leg cellulitis and abscess status post incision and drainage. PLAN: At this point in time, cultures are currently in progress. However her Gram stain showed 1+ g john paul-positive cocci. She is at risk for MRSA, so agree with vancomycin coverage for now. We will courtney ck a trough prior to her 4th dose. Recommend elevation of the leg to help decrease edema. Care was coordinated with the hospitalist team as well as the surgical team. Await cultures to better direct her antimicrobial therapy. Continue with contact isolation for now until cultures are resulted. I thank you very much for providing this opportunity to care for your patient in consultation. /[id number]/MODL
[2017-03-14] MEDS: VANCOMYCIN 750 MG in D5W 150 ML IV SCH (18:27)
[2017-03-15] MEDS: NS W/ 20 KCl/L 1,000 ML IV SCH (01:12)
[2017-03-15] MEDS: oxyCODONE IR 5 MG TAB PO PRN ×6 (03:01→22:55)
[2017-03-15] MEDS: HYDROmorphONE/DILAUDID 1 MG/ML INJ IVP PRN (05:02)
[2017-03-15 05:33] LABS: PLATELET COUNT 226 10^3/uL (150-400)
[2017-03-15] MEDS: VANCOMYCIN 750 MG in D5W 150 ML IV SCH (06:23)
[2017-03-15] MEDS: GABAPENTIN 400 MG CAP PO SCH ×3 (08:08→16:21)
[2017-03-15] MEDS: ENOXAPARIN 40 MG/0.4 ML SYR SC SCH (08:08)
[2017-03-15] MEDS ORDERED: MULTIVITAMINS,THERAPEUTIC 1 ML ML PO SCH (09:00)
--- NOTE | 2017-03-15 09:25 | SOAPPROG ---
SOAP Progress Note Assessment/Plan: POD#1 03/15/17 09:22 Assessment: Wound growing MSSA. Wound vac drainage 175cc since surgery. It is serous. 4+ Edema continues. Plan: Wound re-evaluation in OR tomorrow with debridement and replacement of wound vac. Subjective: "My leg still hurts but it is better." "I'm still having diarrhea." Objective: Vital Signs Temp Pulse Resp BP Pulse Ox 36.9 C 96 16 123/76 H 94 03/15/17 07:40 03/15/17 07:40 03/15/17 07:40 03/15/17 07:40 03/15/17 07:40 Laboratory Results 03/15/17 04:50 03/14/17 04:52 03/14/17 03/15/17 03/16/17 05:59 05:59 05:59 Intake Total 500 2150 Output Total 301 535 200 Balance 199 1615 -200 - Time Spent With Patient Time Spent With Patient: 15 - Pending Discharge Pending Discharge Within 24 Hours: No Pending Discharge Within 48 Hours: No Physical Exam - Physical Exam General Appearance: alert Respiratory: decreased breath sounds, crackles Cardiac/Chest: regular rate, rhythm Abdomen: normal bowel sounds, non-tender, soft ICD10 Worksheet Patient Problems: Problems Problem Status Onset Cellulitis of left leg Acute
--- NOTE | 2017-03-15 10:00 | HOSPPROG ---
Hospitalist Progress Note Assessment/Plan: 56y female with c/o leg pain. First encounter, chart reviewed. #LLE cellulitis/ MSSA dc vanco and start Cefazolin wound vac place to get a repeat I & D tomorrow #Hypokalemia replace #Tobacco abuse education/nicotine patch not ordered/doing well without #Tachy none today #Hx of asthma monitor O2 #Homelessness Will discuss with CM / she is new to [place] doesn't want to go to the senior living due to bugs there #DVT prophylaxis : LMWh Subjective: Elaine is c/o tenderness to her left lower extremity. Objective: Vital Signs Temp Pulse Resp BP Pulse Ox 36.9 C 96 16 123/76 H 94 03/15/17 07:40 03/15/17 07:40 03/15/17 07:40 03/15/17 07:40 03/15/17 07:40 Laboratory Results 03/15/17 04:50 03/14/17 04:52 03/14/17 03/15/17 03/16/17 05:59 05:59 05:59 Intake Total 500 2150 Output Total 301 535 200 Balance 199 1615 -200 - Physical Exam Constitutional: appears nourished, chronically ill appearing, No not in pain Eyes: PERRL Ears, Nose, Mouth, Throat: hearing normal Cardiovascular: regular rate and rhythym Respiratory: no respiratory distress Skin: other (left lower ext, tatum area with erythema, tender with touch/ would vac in place) Musculoskeletal: muscular tenderness, generalized weakness Neurologic: AAOx3 Psychiatric: interacting appropriately, not anxious ICD10 Worksheet Patient Problems: Problems Problem Status Onset Cellulitis of left leg Acute
--- NOTE | 2017-03-15 14:39 | ASMTCMCOM ---
CM Note CM Note Notes: CM met w/ pt for dispo planning. CM informed pt that there aren't any female beds at [facility]. Pt is agreeable to having a referral made to their sister facility, [facility] in [place]. Pt reports that it is important for her to obtain her certificate and social security card at her camp. CM sent referral to [place]. CM called Michael at [facility] and obtained the risk control director's name and phone number. CM left a msg for Lydia Manning ([facility] assor), P#: [phone]. CM to follow. Date Signed: 03/15/2017 02:38 PM Electronically Signed By:ZACK Wilkerson
--- NOTE | 2017-03-15 14:39 | ASMTCMCOM ---
CM Note CM Note Notes: CM met w/ pt for dispo planning. CM informed pt that there aren't any female beds at [facility]. Pt is agreeable to having a referral made to their sister facility, [facility] in [place]. Pt reports that it is important for her to obtain her certificate and social security card at her camp. CM sent referral to [place]. CM called Michael at [facility] and obtained the open die inspector's name and phone number. CM left a msg for Lydia Manning ([facility] assor), P#: [phone]. CM to follow. Date Signed: 03/15/2017 02:38 PM Electronically Signed By:ZACK Wilkerson
--- NOTE | 2017-03-15 14:39 | ASMTCMCOM ---
CM Note CM Note Notes: CM met w/ pt for dispo planning. CM informed pt that there aren't any female beds at [facility]. Pt is agreeable to having a referral made to their sister facility, [facility] in [place]. Pt reports that it is important for her to obtain her certificate and social security card at her camp. CM sent referral to [place]. CM called Michael at [facility] and obtained the poultry feed supervisor's name and phone number. CM left a msg for Lydia Manning ([facility] assor), P#: [phone]. CM to follow. Date Signed: 03/15/2017 02:38 PM Electronically Signed By:ZACK Wilkerson
--- NOTE | 2017-03-15 16:10 | PCMIDPN ---
Assessment/Plan: # MSSA LLE cellulitis, myositis w abscess along anterior tibia s/p debridement with wound vac in place --continue cefazolin, started this a.m.; agree with DC vancomycin --continue elevation --appreciate surgical service meds, antibiotics # 2 cefazolin 1gm IV q8h Microbiology 03/13 blood cultures (2) no growth today 03/13 wound culture: MSSA Subjective: Appreciative of care, still with significant left lower extremity pain Objective: Vital Signs Temp Pulse Resp BP Pulse Ox 37.7 C 92 14 116/72 91 L 03/15/17 15:56 03/15/17 15:56 03/15/17 15:56 03/15/17 15:56 03/15/17 15:56 Laboratory Results 03/15/17 04:50 03/14/17 04:52 03/14/17 03/15/17 03/16/17 05:59 05:59 05:59 Intake Total 500 2150 Output Total 301 535 200 Balance 199 1615 -200 C-Reactive Protein 78.7 mg/L (<10.0) H 03/14/17 00:45 - Physical Exam General Appearance: alert, no apparent distress, other (Tanned) EENT: pale conjunctiva, poor dentition Cardiac/Chest: regular rate, rhythm Extremities: normal capillary refill, swelling (Left lower extremity), erythema (Left lower extremity, appears to have a fainter color. Wound VAC in place over anterior upper tatum.), other (Diffuse tenderness to palpation of the leg) Abdomen: non-tender, soft Skin: other (Tanned), No rash Neuro/Psych: alert, normal mood/affect, oriented x 3 ICD10 Worksheet Patient Problems: Problems Problem Status Onset Cellulitis of left leg Acute
[2017-03-15] MEDS: LORazepam 0.5 MG TAB PO PRN (19:24)
[2017-03-15 20:44] LABS: HIV TYPE 1 AND 2 NEGATIVE (NEGATIVE)
[2017-03-15] MEDS: ACETAMINOPHEN 325 MG TAB PO PRN (21:26)
[2017-03-16] MEDS: HYDROmorphONE/DILAUDID 1 MG/ML INJ IVP PRN ×2 (04:49→17:56)
[2017-03-16] MEDS ORDERED: oxyCODONE IR 5 MG TAB ONE (06:45)
[2017-03-16] MEDS: oxyCODONE IR 5 MG TAB PO PRN ×4 (06:46→22:44)
--- NOTE | 2017-03-16 06:52 | PDANEPAE ---
ANE History of Present Illness here for leg I and D ANE Past Medical History - Cardiovascular History Hx Hypertension: Yes Hx CHF / Valvular Disease: Yes - Pulmonary History Hx COPD: Yes Hx Asthma/Reactive Airway Disease: Yes Hx Oxygen in Use at Home: No Hx Sleep Apnea: No Sleep Apnea Screening Result - Last Documented: Positive - Endocrine History Hx Diabetes: No - Liver History Hx Hepatic Disorders: Yes Hepatic History Comment: hx of hep c - Chronic Pain History Chronic Pain: Yes ANE Review of Systems Review of systems is: negative Review of Systems: - Exercise capacity Exercise capacity: >=4 METS ANE Patient History - Allergies Allergies/Adverse Reactions: No Known Allergies Allergy (Verified 03/13/17 13:59) - Home Medications Home Medications: Gabapentin [Neurontin 400 MG (*)] 1,200 mg PO TID 03/13/17 [Last Taken 03/13/17 08:00] - NPO status NPO Since - Liquids (Date): 03/16/17 NPO Since - Liquids (Time): 00:00 NPO Since - Solids (Date): 03/16/17 NPO Since - Solids (Time): 00:00 - Smoking Hx Smoking Status: Current every day smoker - Alcohol Use Alcohol Use: Occasionally ANE Labs/Vital Signs - Labs Result Diagrams: 03/15/17 04:50 03/14/17 04:52 - Vital Signs Blood Pressure: 125/71 Heart Rate: 77 Respiratory Rate: 20 O2 Sat (%): 91 Height: 157.48 cm Weight: 62.596 kg ANE Physical Exam - Airway Neck exam: FROM Mallampati Score: Class 1 Mouth exam: poor dentition, dentures - Pulmonary Pulmonary: no respiratory distress - Cardiovascular Cardiovascular: regular rate and rhythym - ASA Status ASA Status: III ANE Anesthesia Plan Anesthesia Plan: GA w LMA
[2017-03-16] MEDS ORDERED: BACITRACIN 50,000 UNITS/10 ML SYR IRR ONE (07:02)
[2017-03-16] MEDS ORDERED: IPRATROPIUM/ALBUTEROL 3 ML DEYVIAL IH PRN (07:02)
--- NOTE | 2017-03-16 07:06 | SOAPPROG ---
SOAP Progress Note Assessment/Plan: POD#1 03/15/17 09:22 Assessment: Wound growing MSSA. Wound vac drainage 175cc since surgery. It is serous. 4+ Edema continues. Plan: Wound re-evaluation in OR tomorrow with debridement and replacement of wound vac. POD#2 03/16/17 07:03 Assessment: Edema, erythema and tenderness less. Wound vac output not recorded Plan: Debride wound and change wound vac in OR today 03/16/17 07:06 Subjective: I feel better. Objective: Vital Signs Temp Pulse Resp BP Pulse Ox 36.5 C 77 20 125/71 H 91 L 03/16/17 04:00 03/16/17 06:52 03/16/17 06:52 03/16/17 06:52 03/16/17 06:52 Laboratory Results 03/15/17 04:50 03/14/17 04:52 03/15/17 03/16/17 03/17/17 05:59 05:59 05:59 Intake Total 2150 Output Total 535 400 Balance 1615 -400 - Time Spent With Patient Time Spent With Patient: 15 - Pending Discharge Pending Discharge Within 24 Hours: No Pending Discharge Within 48 Hours: No Physical Exam - Physical Exam General Appearance: alert, no apparent distress Respiratory: crackles, wheezing Cardiac/Chest: regular rate, rhythm Abdomen: normal bowel sounds, non-tender, soft Extremities: swelling, other (Left lower leg has less erythema, tenderness and edema.) ICD10 Worksheet Patient Problems: Problems Problem Status Onset Cellulitis of left leg Acute
[2017-03-16] MEDS ORDERED: POLYMYXIN B SULFATE 500,000 UNIT/10 ML SYR IRR ONE (07:08)
[2017-03-16] MEDS ORDERED: PROPOFOL/EMULSION 500 MG/50 ML BOTTLE IV ONE (07:08)
[2017-03-16] MEDS ORDERED: fentaNYL 100 MCG/2 ML INJ ONE ×2 (07:08→08:31)
[2017-03-16] MEDS ORDERED: PHENYLEPHRINE HCL 100 MCG/ML SYR ONE (07:35)
--- NOTE | 2017-03-16 08:19 | POSTANESTH ---
Post Anesthetic Evaluation Cardiovascular Status: Normal, Stable Respiratory Status: Normal, Stable Level of Consciousness/Mental Status: Can Participate in Eval Pain Control: Adequate, Prn Tx Ordered Nausea/Vomiting Control: Adequate, Prn Tx Ordered Complications Possibly Related to Anesthesia: None Noted
[2017-03-16] MEDS ORDERED: ALBUTEROL 3 ML DEYVIAL ONE (08:20)
[2017-03-16] MEDS ORDERED: ONDANSETRON 4 MG/2 ML VIAL IVP PRN (08:35)
[2017-03-16] MEDS ORDERED: ALBUTEROL 3 ML DEYVIAL IH PRN (08:35)
[2017-03-16] MEDS ORDERED: NALOXONE HCL 0.4 MG/ML INJ IVP PRN (08:35)
--- NOTE | 2017-03-16 08:35 | PCMIDPN ---
Assessment/Plan: # MSSA LLE cellulitis, myositis w abscess along anterior tibia, tendon exposure s/p debridement x 2 --appreciate surgical service --continue IV cefazolin, standard dose at 1gm IV q8h probably okay for skin coverage, even with small area of exposed tendon --duration of IV antibiotics based on clinical improvement --large wound will likely need skin graft. --wound VAC management per surgery meds, antibiotics # 3 cefazolin 1gm IV q8h Microbiology 03/13 blood cultures (2) no growth today 03/13 wound culture: MSSA Care coordinated with Dr. Huston and Onelia Verdugo NP Subjective: Patient examined in the operating room, had minimal complaints Objective: Vital Signs Temp Pulse Resp BP Pulse Ox 36.7 C 77 20 125/71 H 91 L 03/16/17 04:32 03/16/17 08:14 03/16/17 08:14 03/16/17 08:14 03/16/17 08:14 Laboratory Results 03/15/17 04:50 03/14/17 04:52 03/15/17 03/16/17 03/17/17 05:59 05:59 05:59 Intake Total 2150 Output Total 535 400 Balance 1615 -400 C-Reactive Protein 78.7 mg/L (<10.0) H 03/14/17 00:45 - Physical Exam General Appearance: alert, no apparent distress Respiratory: wheezing, No accessory muscle use Extremities: erythema (upper calf associated with large wound, very large open wound anterior tatum debrided down to healthy tissue then wound vac was placed) Skin: No rash Neuro/Psych: alert, normal mood/affect, oriented x 3 - Line/s PIV Lines: other (L arm), No drainage, No erythema ICD10 Worksheet Patient Problems: Problems Problem Status Onset Cellulitis of left leg Acute
[2017-03-16] MEDS: fentaNYL 100 MCG/2 ML INJ IVP PRN ×2 (08:40→08:58)
--- NOTE | 2017-03-16 09:10 | POSTOPPROG ---
Post Op Note Date of Operation: 03/16/17 Surgeon: Venancio Huston Anesthesia: LMA Pre-op Diagnosis: Wound with infection, left anterior proximal lower leg, s/p debridement Post-op Diagnosis: Wound with infection, left anterior proximal lower leg, s/p debridement Indication: Wound with infection, left anterior proximal lower leg, s/p debridement Procedure: Exploration of wound, debridement of skin and subcutaneous tissue Findings: Wound with infection, left anterior proximal lower leg, s/p debridement Inf/Abcess present in the surg proc area at time of surgery?: Yes Depth: Superfical (Skin SQ) EBL: Minimal Total fluids administered: 1000 Complications: none Drains: Wound Vac Specimen(s): none
--- NOTE | 2017-03-16 10:01 | GOP ---
[f rep st] OPERATIVE REPORT DATE OF OPERATION: 03/16/2017 SURGEON: Venancio Huston MD ANESTHESIA: General anesthesia by laryngeal mask. PREOPERATIVE DIAGNOSIS: Wound infection, left anterior proximal lower leg, status post debridement and wound VAC placement. POSTOPERATIVE DIAGNOSIS: Wound infection, left anterior proximal lower leg, status post debridement and wound VAC placement. PROCEDURE PERFORMED: Exploration of wound with debridement of skin, subcutaneous tissue, irrigation, and wound VAC placement. FINDINGS: Wound infection, left anterior proximal lower leg, status post debridement and wound VAC placement. SPECIMENS: None. ESTIMATED BLOOD LOSS: Minimal. INDICATIONS: Wound infection, left anterior proximal lower leg, status post debridement and wound VAC placement. DESCRIPTION OF PROCEDURE: The patient is placed on the operating table in supine position. After induction of laryngeal mask anesthesia, the left lower leg is carefully exposed. There has been an Aaron wrap on her lower leg. The leg is placed in a stirrup for prepping. The wound VAC is removed. Leg is carefully prepped from the level of malleoli to above the knee. A stockinette is placed over the foot and wrapped with Coban. An extremity drape is positioned. A surgical time-out is carried out. It is agreed to by all members of the operative team. Laterally, there is a rim of skin, which is debrided. Medially, there is also a rim of skin, which is debrided. There is marginally viable infected subcutaneous tissue, which is now debrided. The wound is irrigated with a Simpulse veteran appeals reviewer, with bacitracin present. This reveals additional areas of marginal tissue, which are further debrided. A wound VAC is placed and a good seal is been obtained. The lower leg is carefully wrapped from below the wound VAC to the toes with Kerlix roll and then a 4-inch Aaron. She tolerated the procedure well and is transferred to recovery in stable and satisfactory condition. INFECTION PRESENT: Yes. There is still infection in the skin and subcutaneous tissue, which was aggressively debrided. Depth of infection is superficial. FLUIDS: Less than 1000 cc. COMPLICATIONS: None. DRAIN PLACED: Wound VAC. /[id number]/MODL MTDD
[2017-03-16 10:49] LABS: PLATELET COUNT 273 10^3/uL (150-400)
[2017-03-16] MEDS: ENOXAPARIN 40 MG/0.4 ML SYR SC SCH (12:08)
[2017-03-16] MEDS: ACETAMINOPHEN 325 MG TAB PO PRN ×3 (12:09→19:55)
[2017-03-16] MEDS: MULTIVITAMINS 1 EACH TAB PO SCH (12:09)
[2017-03-16] MEDS: LORazepam 0.5 MG TAB PO PRN ×2 (12:09→15:55)
[2017-03-16] MEDS: GABAPENTIN 400 MG CAP PO SCH ×3 (12:09→21:26)
[2017-03-16] MEDS ORDERED: PROTOCOL MAGNESIUM 1 DOSE IV PRN (14:35)
[2017-03-16] MEDS ORDERED: PROTOCOL POTASSIUM 1 DOSE MISC PRN (14:35)
--- NOTE | 2017-03-16 14:35 | HOSPPROG ---
Hospitalist Progress Note Assessment/Plan: 56y female with c/o leg pain. Reviewed her care w Dr Padilla/ patient will need SNF/wound vac and skin graft eventually. #LLE cellulitis/ MSSA Cefazolin wound vac place s/p I & D and debridement today fever earlier today #Hypokalemia replace #Tobacco abuse education/nicotine patch not ordered/doing well without #delirium has some confusion today after her I & D will monitor #Tachy none today #Hx of asthma monitor O2 #Homelessness Will discuss with CM / she is new to [place]/ looking at [place] possibly doesn't want to go to the half-way due to bugs there #DVT prophylaxis : LMWh #Plan: repeat labs in a.m., CM looking at placement where she will get good wound care. Subjective: Elaine has no c/o pain. Eating well. Objective: Vital Signs Temp Pulse Resp BP Pulse Ox 38.3 C 82 12 106/63 94 03/16/17 12:37 03/16/17 12:37 03/16/17 12:37 03/16/17 12:37 03/16/17 12:37 Laboratory Results 03/16/17 10:43 03/14/17 04:52 03/15/17 03/16/17 03/17/17 05:59 05:59 05:59 Intake Total 2150 Output Total 535 400 Balance 1615 -400 - Physical Exam Constitutional: no apparent distress, chronically ill appearing, unkempt Eyes: PERRL Ears, Nose, Mouth, Throat: hearing normal Cardiovascular: regular rate and rhythym Respiratory: no respiratory distress Gastrointestinal: normoactive bowel sounds Skin: other (wound vac to left lower ext/ dressing in place) Musculoskeletal: generalized weakness Neurologic: other (alert but confused) Psychiatric: interacting appropriately, poor insight, poor memory ICD10 Worksheet Patient Problems: Problems Problem Status Onset Cellulitis of left leg Acute
[2017-03-16] MEDS ORDERED: POTASSIUM CL 10 MEQ TAB PO ONE (14:48)
[2017-03-17] MEDS: oxyCODONE IR 5 MG TAB PO PRN ×4 (04:59→23:07)
[2017-03-17 05:41] LABS: PLATELET COUNT 283 10^3/uL (150-400)
[2017-03-17] MEDS: LORazepam 0.5 MG TAB PO PRN (07:18)
[2017-03-17] MEDS: GABAPENTIN 400 MG CAP PO SCH ×3 (08:45→23:07)
[2017-03-17] MEDS: ENOXAPARIN 40 MG/0.4 ML SYR SC SCH (08:45)
[2017-03-17] MEDS: MULTIVITAMINS 1 EACH TAB PO SCH (08:45)
[2017-03-17] MEDS ORDERED: MAGNESIUM SULF 1 GM/DEXTROSE 100 ML IV ONE (09:03)
--- NOTE | 2017-03-17 09:16 | SOAPPROG ---
SOAP Progress Note Assessment/Plan: Assessment: Plan: Subjective: my knee hurts pt with wound vac on infrapatellar wound, palm sized. no surrounding erythema. vac to be changed tomorrow. cont ancef. will tara need stsg to cover large defect. Objective: Vital Signs Temp Pulse Resp BP Pulse Ox 37.3 C 76 18 118/75 90 L 03/17/17 08:00 03/17/17 08:00 03/17/17 08:00 03/17/17 08:00 03/17/17 08:00 Laboratory Results 03/17/17 05:02 03/17/17 05:02 03/16/17 03/17/17 03/18/17 05:59 05:59 05:59 Intake Total 550 Output Total 400 Balance -400 550 ICD10 Worksheet Patient Problems: Problems Problem Status Onset Cellulitis of left leg Acute
--- NOTE | 2017-03-17 09:35 | PCMIDPN ---
Assessment/Plan: Assessment/Plan: * Left lower extremity abscess/myositis s/p incision and drainage X 2: Clinically improved with incision and drainage + IV cefazolin. Cultures with growth of MSSA. Continue cefazolin and wound vac. Will adjust cefazolin to q 12 hour dosing with increased creatinine. Repeat creatinine in am. Side effects of antibiotics reviewed. 03/17/17 09:31 Subjective: Patient complains of left lower extremity pain. No diarrhea or skin rash. Objective: Vital Signs Temp Pulse Resp BP Pulse Ox 37.3 C 76 18 118/75 90 L 03/17/17 08:00 03/17/17 08:00 03/17/17 08:00 03/17/17 08:00 03/17/17 08:00 Laboratory Results 03/17/17 05:02 03/17/17 05:02 03/16/17 03/17/17 03/18/17 05:59 05:59 05:59 Intake Total 550 Output Total 400 Balance -400 550 C-Reactive Protein 78.7 mg/L (<10.0) H 03/14/17 00:45 Cefazolin #2, antibiotics #4 Blood cultures X 2 no growth Abscess cultures MSSA Laboratory Tests 03/15/17 03/17/17 04:50 05:02 Total Bilirubin 0.2 AST 16 ALT 35 Alkaline Phosphatase 51 HIV 1&2 Antibody NEGATIVE - Physical Exam General Appearance: alert, no apparent distress EENT: No thrush, No conjunctival petechiae Respiratory: lungs clear, No respiratory distress Cardiac/Chest: regular rate, rhythm, No systolic murmur Extremities: inflammation (left lower extremity with wound vac in place; mild surrounding erythema which is more prominent laterally with residual tenderness present; no bullae) Skin: No embolic lesions ICD10 Worksheet Patient Problems: Problems Problem Status Onset Cellulitis of left leg Acute
--- NOTE | 2017-03-17 12:53 | HOSPPROG ---
Hospitalist Progress Note Assessment/Plan: 56y female with c/o leg pain. #LLE cellulitis/ MSSA Cefazolin wound vac place s/p I & D and debridement fever earlier today #Hypokalemia replace #Tobacco abuse education/nicotine patch not ordered/doing well without #delirium has some confusion today will monitor #Tachy none today #Hx of asthma monitor O2 #ALEXANDRE antibiotics adjusted #Homelessness discuss with CM / she is new to [place]/ looking at [place] possibly doesn't want to go to the prison due to bugs there #DVT prophylaxis : LMWh #Plan: repeat labs in a.m., CM looking at placement where she will get good wound care. Subjective: Still in some pain. Minimal interaction. Objective: Vital Signs Temp Pulse Resp BP Pulse Ox 37.1 C 74 20 104/64 91 L 03/17/17 12:00 03/17/17 12:00 03/17/17 12:00 03/17/17 12:00 03/17/17 12:00 Laboratory Results 03/17/17 05:02 03/17/17 05:02 03/16/17 03/17/17 03/18/17 05:59 05:59 05:59 Intake Total 550 Output Total 400 Balance -400 550 - Physical Exam Constitutional: not in pain, chronically ill appearing Eyes: PERRL, anicteric sclera Ears, Nose, Mouth, Throat: moist mucous membranes, hearing normal Cardiovascular: regular rate and rhythym, No JVD Respiratory: no respiratory distress, reduced air movement Gastrointestinal: No tenderness, No ascites Skin: warm, no fluctuance, abrasion Musculoskeletal: pain with ROM, generalized weakness Psychiatric: not anxious, poor insight, poor judgement, poor memory ICD10 Worksheet Patient Problems: Problems Problem Status Onset Cellulitis of left leg Acute
--- NOTE | 2017-03-17 12:53 | HOSPPROG ---
Hospitalist Progress Note Assessment/Plan: 56y female with c/o leg pain. #LLE cellulitis/ MSSA Cefazolin wound vac place s/p I & D and debridement fever earlier today #Hypokalemia replace #Tobacco abuse education/nicotine patch not ordered/doing well without #delirium has some confusion today will monitor #Tachy none today #Hx of asthma monitor O2 #ALEXANDRE antibiotics adjusted #Homelessness discuss with CM / she is new to [place]/ looking at [place] possibly doesn't want to go to the [facility] due to bugs there #DVT prophylaxis : LMWh #Plan: repeat labs in a.m., CM looking at placement where she will get good wound care. Subjective: Still in some pain. Minimal interaction. Objective: Vital Signs Temp Pulse Resp BP Pulse Ox 37.1 C 74 20 104/64 91 L 03/17/17 12:00 03/17/17 12:00 03/17/17 12:00 03/17/17 12:00 03/17/17 12:00 Laboratory Results 03/17/17 05:02 03/17/17 05:02 03/16/17 03/17/17 03/18/17 05:59 05:59 05:59 Intake Total 550 Output Total 400 Balance -400 550 - Physical Exam Constitutional: not in pain, chronically ill appearing Eyes: PERRL, anicteric sclera Ears, Nose, Mouth, Throat: moist mucous membranes, hearing normal Cardiovascular: regular rate and rhythym, No JVD Respiratory: no respiratory distress, reduced air movement Gastrointestinal: No tenderness, No ascites Skin: warm, no fluctuance, abrasion Musculoskeletal: pain with ROM, generalized weakness Psychiatric: not anxious, poor insight, poor judgement, poor memory ICD10 Worksheet Patient Problems: Problems Problem Status Onset Cellulitis of left leg Acute
--- NOTE | 2017-03-17 12:53 | HOSPPROG ---
Hospitalist Progress Note Assessment/Plan: 56y female with c/o leg pain. #LLE cellulitis/ MSSA Cefazolin wound vac place s/p I & D and debridement fever earlier today #Hypokalemia replace #Tobacco abuse education/nicotine patch not ordered/doing well without #delirium has some confusion today will monitor #Tachy none today #Hx of asthma monitor O2 #ALEXANDRE antibiotics adjusted #Homelessness discuss with CM / she is new to [place]/ looking at [facility] [employer] possibly doesn't want to go to the long term due to bugs there #DVT prophylaxis : LMWh #Plan: repeat labs in a.m., CM looking at placement where she will get good wound care. Subjective: Still in some pain. Minimal interaction. Objective: Vital Signs Temp Pulse Resp BP Pulse Ox 37.1 C 74 20 104/64 91 L 03/17/17 12:00 03/17/17 12:00 03/17/17 12:00 03/17/17 12:00 03/17/17 12:00 Laboratory Results 03/17/17 05:02 03/17/17 05:02 03/16/17 03/17/17 03/18/17 05:59 05:59 05:59 Intake Total 550 Output Total 400 Balance -400 550 - Physical Exam Constitutional: not in pain, chronically ill appearing Eyes: PERRL, anicteric sclera Ears, Nose, Mouth, Throat: moist mucous membranes, hearing normal Cardiovascular: regular rate and rhythym, No JVD Respiratory: no respiratory distress, reduced air movement Gastrointestinal: No tenderness, No ascites Skin: warm, no fluctuance, abrasion Musculoskeletal: pain with ROM, generalized weakness Psychiatric: not anxious, poor insight, poor judgement, poor memory ICD10 Worksheet Patient Problems: Problems Problem Status Onset Cellulitis of left leg Acute
--- NOTE | 2017-03-17 17:17 | ASMTCMCOM ---
CM Note CM Note Notes: Pt. was approved by Lydia Manning at [facility] [phone] to go to Medicaid LTC chcf stay. [facility] PASRR is complete and non-triggering. Please call [facility] when chcf is identified. They will send approval to facility. Today Amitar worked on Pt's admission to LTC Medicaid facility. Gibson at [place] not sure if [facility] can accept Pt. due to her possibly having a wound vac at d/c. Please see Allscripts for latest referral information. SWer went to update Pt. about plan today. Pt. quite sleepy. Might need to touch base with her again if she was too sleepy to understand. Pt. was grateful about plan to go to a chcf. CM to follow for d/c POC. Date Signed: 03/17/2017 05:17 PM Electronically Signed By:Radha Ho LCSW
--- NOTE | 2017-03-17 17:17 | ASMTCMCOM ---
CM Note CM Note Notes: Pt. was approved by Lydia Manning at [facility] [phone] to go to Medicaid LTC fci stay. [facility] PASRR is complete and non-triggering. Please call [facility] when fci is identified. They will send approval to facility. Today Amitar worked on Pt's admission to LTC Medicaid facility. [facility] at [place] not sure if [facility] can accept Pt. due to her possibly having a wound vac at d/c. Please see Allscripts for latest referral information. SWer went to update Pt. about plan today. Pt. quite sleepy. Might need to touch base with her again if she was too sleepy to understand. Pt. was grateful about plan to go to a fci. CM to follow for d/c POC. Date Signed: 03/17/2017 05:17 PM Electronically Signed By:Radha Ho LCSW
--- NOTE | 2017-03-17 17:17 | ASMTCMCOM ---
CM Note CM Note Notes: Pt. was approved by Lydia Manning at [facility] [phone] to go to Medicaid LTC halfway stay. [facility] PASRR is complete and non-triggering. Please call [facility] when halfway is identified. They will send approval to facility. Today Amitar worked on Pt's admission to LTC Medicaid facility. Gibson at [place] not sure if [facility] can accept Pt. due to her possibly having a wound vac at d/c. Please see Allscripts for latest referral information. SWer went to update Pt. about plan today. Pt. quite sleepy. Might need to touch base with her again if she was too sleepy to understand. Pt. was grateful about plan to go to a halfway. CM to follow for d/c POC. Date Signed: 03/17/2017 05:17 PM Electronically Signed By:Radha Ho LCSW
[2017-03-18] MEDS: oxyCODONE IR 5 MG TAB PO PRN ×5 (03:54→20:17)
[2017-03-18] MEDS: HYDROmorphONE/DILAUDID 1 MG/ML INJ IVP PRN ×2 (04:19→10:09)
[2017-03-18] MEDS ORDERED: MAGNESIUM SULF 1 GM/DEXTROSE 100 ML IV ONE (08:06)
--- NOTE | 2017-03-18 08:28 | PDANEPAE ---
ANE History of Present Illness Wound for wound vac change ANE Past Medical History - Cardiovascular History Hx Hypertension: Yes Hx CHF / Valvular Disease: Yes - Pulmonary History Hx COPD: Yes Hx Asthma/Reactive Airway Disease: Yes Hx Oxygen in Use at Home: No Hx Sleep Apnea: No Sleep Apnea Screening Result - Last Documented: Positive - Endocrine History Hx Diabetes: No - Liver History Hx Hepatic Disorders: Yes Hepatic History Comment: hx of hep c - Chronic Pain History Chronic Pain: Yes ANE Review of Systems Review of Systems: ANE Patient History - Allergies Allergies/Adverse Reactions: No Known Allergies Allergy (Verified 03/13/17 13:59) - Home Medications Home medications: home medication list seen and reviewed Home Medications: Gabapentin [Neurontin 400 MG (*)] 1,200 mg PO TID 03/13/17 [Last Taken 03/13/17 08:00] - NPO status NPO Since - Liquids (Date): 03/17/17 NPO Since - Liquids (Time): 00:00 NPO Since - Solids (Date): 03/17/17 NPO Since - Solids (Time): 00:00 - Anes Hx Anes Hx: no prior problems - Smoking Hx Smoking Status: Current every day smoker - Alcohol Use Alcohol Use: Occasionally ANE Labs/Vital Signs - Labs Result Diagrams: 03/17/17 05:02 03/18/17 04:58 - Vital Signs Blood Pressure: 116/67 Heart Rate: 71 Respiratory Rate: 16 O2 Sat (%): 91 Height: 157.48 cm Weight: 62.596 kg ANE Physical Exam - Airway Neck exam: FROM Mallampati Score: Class 1 Mouth exam: normal dental/mouth exam, poor dentition, dentures - Pulmonary Pulmonary: no respiratory distress - Cardiovascular Cardiovascular: regular rate and rhythym - ASA Status ASA Status: III ANE Anesthesia Plan Anesthesia Plan: GA w LMA
[2017-03-18] MEDS ORDERED: MIDAZOLAM 2 MG/2 ML VIAL IVP ONE (08:30)
[2017-03-18] MEDS ORDERED: BACITRACIN 50,000 UNITS/10 ML SYR IRR ONE (08:34)
[2017-03-18] MEDS ORDERED: LIDOCAINE 2% 5 ML SDV ONE (08:36)
[2017-03-18] MEDS ORDERED: METOCLOPRAMIDE 10 MG/2 ML VIAL ONE (08:36)
[2017-03-18] MEDS ORDERED: PROPOFOL 200 MG/20 ML VIAL ONE (08:37)
[2017-03-18] MEDS ORDERED: fentaNYL 100 MCG/2 ML INJ ONE ×2 (08:37→09:48)
[2017-03-18] MEDS ORDERED: LIDOCAINE 2% JELLY 5 ML TUBE ONE (08:41)
--- NOTE | 2017-03-18 09:17 | POSTOPPROG ---
Post Op Note Date of Operation: 03/18/17 Surgeon: Venancio Huston Anesthesia: LMA Pre-op Diagnosis: wound, proximal left lower leg Post-op Diagnosis: wound, proximal left lower leg Indication: wound, proximal left lower leg Procedure: wound exploration with debridement and wound vac placement Findings: wound, proximal left lower leg Inf/Abcess present in the surg proc area at time of surgery?: No Complications: none Specimen(s): none
--- NOTE | 2017-03-18 09:22 | SOAPPROG ---
SOAP Progress Note Assessment/Plan: POD#1 03/15/17 09:22 Assessment: Wound growing MSSA. Wound vac drainage 175cc since surgery. It is serous. 4+ Edema continues. Plan: Wound re-evaluation in OR tomorrow with debridement and replacement of wound vac. POD#2 03/16/17 07:03 Assessment: Edema, erythema and tenderness less. Wound vac output not recorded Plan: Debride wound and change wound vac in OR today POD#4,2 and today 03/18/17 09:18 Assessment: Minimal debridement today. Will be able to switch to beside dressing changes. Will not be able to close wound primarily and will need skin graft. Plan: Continue antibiotic and wound vac therapy. Next wound vac change will be bedside on Monday. STSG (split thickness skin graft) may be possible on Monday. Subjective: I feel better Objective: Vital Signs Temp Pulse Resp BP Pulse Ox 37.0 C 71 16 116/67 91 L 03/18/17 08:00 03/18/17 08:28 03/18/17 08:28 03/18/17 08:28 03/18/17 08:28 Laboratory Results 03/17/17 05:02 03/18/17 04:58 03/17/17 03/18/17 03/19/17 05:59 05:59 05:59 Intake Total 550 67 Balance 550 67 - Time Spent With Patient Time Spent With Patient: 15 - Pending Discharge Pending Discharge Within 24 Hours: No Pending Discharge Within 48 Hours: No ICD10 Worksheet Patient Problems: Problems Problem Status Onset Cellulitis of left leg Acute
[2017-03-18] MEDS ORDERED: ONDANSETRON 4 MG/2 ML VIAL IVP PRN (09:28)
[2017-03-18] MEDS ORDERED: ALBUTEROL 3 ML DEYVIAL IH PRN (09:28)
[2017-03-18] MEDS ORDERED: fentaNYL 100 MCG/2 ML INJ IVP PRN (09:28)
[2017-03-18] MEDS ORDERED: HYDROmorphONE/DILAUDID 1 MG/ML INJ IVP PRN (09:28)
[2017-03-18] MEDS ORDERED: NALOXONE HCL 0.4 MG/ML INJ IVP PRN (09:28)
--- NOTE | 2017-03-18 09:30 | POSTANESTH ---
Post Anesthetic Evaluation Cardiovascular Status: Similar to Pre-Op Cond Respiratory Status: Similar to Pre-op Cond., Other, See Comment (Congested as pre-op) Level of Consciousness/Mental Status: Alert and Oriented Pain Control: Adequate, Prn Tx Ordered Nausea/Vomiting Control: Adequate, Prn Tx Ordered Complications Possibly Related to Anesthesia: None Noted
--- NOTE | 2017-03-18 09:46 | GOP ---
[f rep st] OPERATIVE REPORT DATE OF OPERATION: 03/18/2017 SURGEON: Venancio Huston MD ANESTHESIA: General by laryngeal mass. PREOPERATIVE DIAGNOSIS: Left proximal lower leg wound infection, status post debridement. POSTOPERATIVE DIAGNOSIS: Left proximal lower leg wound infection, status post debridement. PROCEDURE PERFORMED: Wound exploration,debridement, wound vac placement FINDINGS: Left proximal lower leg wound infection, status post debridement. INDICATIONS: Left proximal lower leg wound infection, status post debridement. DESCRIPTION OF PROCEDURE: The patient is placed on the operating table in supine position. After induction of adequate general anesthesia by laryngeal mask, a surgical time-out was carried out and agreed to by the OR staff. The left lower leg is carefully prepped and draped from the malleoli to above the knee. The foot had been placed in a stockinette, and an extremity drape had been used. The wound VAC had been removed prior to prepping. The wound was now inspected. Only a few areas needed to be debrided today. The debridement was carried out. Irrigation with a pulsed lavage and bacitracin is done. Granulation tissue was covering approximately 90% of the tissue. The wound VAC is replaced. The patient is transferred to Recovery in stable and satisfactory condition. PROCEDURE: 1. Wound exploration with debridement and irrigation with Simpulse irrigation with bacitracin. 2. Wound VAC placement. /[id number]/MODL MTDD
[2017-03-18] MEDS ORDERED: HYDROmorphONE/DILAUDID 1 MG/ML INJ ONE (09:47)
[2017-03-18] MEDS: GABAPENTIN 400 MG CAP PO SCH ×3 (11:26→22:22)
[2017-03-18] MEDS: MULTIVITAMINS 1 EACH TAB PO SCH (11:31)
[2017-03-18] MEDS: ENOXAPARIN 40 MG/0.4 ML SYR SC SCH (12:37)
--- NOTE | 2017-03-18 13:07 | HOSPPROG ---
Hospitalist Progress Note Assessment/Plan: 56y female with c/o leg pain. #LLE cellulitis/ MSSA Cefazolin wound vac in place s/p I & D today and debridement #Hypokalemia replace #Tobacco abuse education/nicotine patch not ordered/doing well without #delirium has some confusion #Tachy none today #Hx of asthma monitor O2 #ALEXANDRE antibiotics adjusted better #Homelessness discuss with CM / she is new to [place]/ looking at [place] possibly doesn't want to go to the [facility] due to bugs there #DVT prophylaxis : LMWh #Plan: repeat labs in a.m., CM looking at placement where she will get good wound care. Subjective: Up in chair. Confused. Post op. Objective: Vital Signs Temp Pulse Resp BP Pulse Ox 37.0 C 81 16 110/73 93 03/18/17 11:31 03/18/17 11:31 03/18/17 11:31 03/18/17 11:31 03/18/17 11:31 Laboratory Results 03/17/17 05:02 03/18/17 04:58 03/17/17 03/18/17 03/19/17 05:59 05:59 05:59 Intake Total 550 67 600 Output Total 5 Balance 550 67 595 - Physical Exam Constitutional: not in pain, chronically ill appearing Eyes: PERRL, anicteric sclera Ears, Nose, Mouth, Throat: moist mucous membranes, hearing normal Cardiovascular: regular rate and rhythym, No JVD Respiratory: no respiratory distress, reduced air movement Gastrointestinal: normoactive bowel sounds, No ascites Skin: warm, erythema Musculoskeletal: no joint effusions, generalized weakness Psychiatric: not anxious, poor insight, poor judgement, poor memory ICD10 Worksheet Patient Problems: Problems Problem Status Onset Cellulitis of left leg Acute
--- NOTE | 2017-03-18 13:07 | HOSPPROG ---
Hospitalist Progress Note Assessment/Plan: 56y female with c/o leg pain. #LLE cellulitis/ MSSA Cefazolin wound vac in place s/p I & D today and debridement #Hypokalemia replace #Tobacco abuse education/nicotine patch not ordered/doing well without #delirium has some confusion #Tachy none today #Hx of asthma monitor O2 #ALEXANDRE antibiotics adjusted better #Homelessness discuss with CM / she is new to [place]/ looking at [facility] [place] possibly doesn't want to go to the assisted due to bugs there #DVT prophylaxis : LMWh #Plan: repeat labs in a.m., CM looking at placement where she will get good wound care. Subjective: Up in chair. Confused. Post op. Objective: Vital Signs Temp Pulse Resp BP Pulse Ox 37.0 C 81 16 110/73 93 03/18/17 11:31 03/18/17 11:31 03/18/17 11:31 03/18/17 11:31 03/18/17 11:31 Laboratory Results 03/17/17 05:02 03/18/17 04:58 03/17/17 03/18/17 03/19/17 05:59 05:59 05:59 Intake Total 550 67 600 Output Total 5 Balance 550 67 595 - Physical Exam Constitutional: not in pain, chronically ill appearing Eyes: PERRL, anicteric sclera Ears, Nose, Mouth, Throat: moist mucous membranes, hearing normal Cardiovascular: regular rate and rhythym, No JVD Respiratory: no respiratory distress, reduced air movement Gastrointestinal: normoactive bowel sounds, No ascites Skin: warm, erythema Musculoskeletal: no joint effusions, generalized weakness Psychiatric: not anxious, poor insight, poor judgement, poor memory ICD10 Worksheet Patient Problems: Problems Problem Status Onset Cellulitis of left leg Acute
--- NOTE | 2017-03-18 13:07 | HOSPPROG ---
Hospitalist Progress Note Assessment/Plan: 56y female with c/o leg pain. #LLE cellulitis/ MSSA Cefazolin wound vac in place s/p I & D today and debridement #Hypokalemia replace #Tobacco abuse education/nicotine patch not ordered/doing well without #delirium has some confusion #Tachy none today #Hx of asthma monitor O2 #ALEXANDRE antibiotics adjusted better #Homelessness discuss with CM / she is new to [place]/ looking at [place] possibly doesn't want to go to the [facility] due to bugs there #DVT prophylaxis : LMWh #Plan: repeat labs in a.m., CM looking at placement where she will get good wound care. Subjective: Up in chair. Confused. Post op. Objective: Vital Signs Temp Pulse Resp BP Pulse Ox 37.0 C 81 16 110/73 93 03/18/17 11:31 03/18/17 11:31 03/18/17 11:31 03/18/17 11:31 03/18/17 11:31 Laboratory Results 03/17/17 05:02 03/18/17 04:58 03/17/17 03/18/17 03/19/17 05:59 05:59 05:59 Intake Total 550 67 600 Output Total 5 Balance 550 67 595 - Physical Exam Constitutional: not in pain, chronically ill appearing Eyes: PERRL, anicteric sclera Ears, Nose, Mouth, Throat: moist mucous membranes, hearing normal Cardiovascular: regular rate and rhythym, No JVD Respiratory: no respiratory distress, reduced air movement Gastrointestinal: normoactive bowel sounds, No ascites Skin: warm, erythema Musculoskeletal: no joint effusions, generalized weakness Psychiatric: not anxious, poor insight, poor judgement, poor memory ICD10 Worksheet Patient Problems: Problems Problem Status Onset Cellulitis of left leg Acute
[2017-03-18] MEDS ORDERED: ALTEPLASE 2 MG VIAL IVP PRN (14:55)
[2017-03-18] MEDS: LORazepam 0.5 MG TAB PO PRN (20:16)
[2017-03-18] MEDS: ACETAMINOPHEN 325 MG TAB PO PRN (22:26)
[2017-03-19] MEDS: oxyCODONE IR 5 MG TAB PO PRN ×7 (02:04→22:32)
--- NOTE | 2017-03-19 09:48 | HOSPPROG ---
Hospitalist Progress Note Assessment/Plan: 56y female with c/o leg pain. #LLE cellulitis/ MSSA Cefazolin wound vac in place s/p I & D today and debridement picc placed #Hypokalemia replace #Tobacco abuse education/nicotine patch not ordered/doing well without #delirium has some confusion #Tachy none today #Hx of asthma monitor O2 #ALEXANDRE antibiotics adjusted better #Homelessness discuss with CM / she is new to [place]/ looking at [facility] [place] possibly doesn't want to go to the longterm due to bugs there #DVT prophylaxis : LMWh #Plan: repeat labs in a.m., CM looking at placement where she will get good wound care. Subjective: Up walking with therapy. Some confusion. Objective: Vital Signs Temp Pulse Resp BP Pulse Ox 36.7 C 67 16 122/68 H 92 03/19/17 08:00 03/19/17 08:00 03/19/17 08:00 03/19/17 08:00 03/19/17 08:00 Laboratory Results 03/17/17 05:02 03/19/17 05:20 03/18/17 03/19/17 03/20/17 05:59 05:59 05:59 Intake Total 67 600 Output Total 3505 200 Balance 67 -2905 -200 - Physical Exam Constitutional: appears nourished, chronically ill appearing Eyes: PERRL, anicteric sclera Ears, Nose, Mouth, Throat: moist mucous membranes, hearing normal Cardiovascular: No JVD, No edema Respiratory: no respiratory distress, reduced air movement Gastrointestinal: No ascites, No guarding Skin: warm, other (woundvac) Musculoskeletal: no joint effusions, generalized weakness Neurologic: No AAOx3 Psychiatric: not anxious, poor insight, poor judgement, poor memory ICD10 Worksheet Patient Problems: Problems Problem Status Onset Cellulitis of left leg Acute
--- NOTE | 2017-03-19 09:48 | HOSPPROG ---
Hospitalist Progress Note Assessment/Plan: 56y female with c/o leg pain. #LLE cellulitis/ MSSA Cefazolin wound vac in place s/p I & D today and debridement picc placed #Hypokalemia replace #Tobacco abuse education/nicotine patch not ordered/doing well without #delirium has some confusion #Tachy none today #Hx of asthma monitor O2 #ALEXANDRE antibiotics adjusted better #Homelessness discuss with CM / she is new to [place]/ looking at [facility] [place] possibly doesn't want to go to the senior living due to bugs there #DVT prophylaxis : LMWh #Plan: repeat labs in a.m., CM looking at placement where she will get good wound care. Subjective: Up walking with therapy. Some confusion. Objective: Vital Signs Temp Pulse Resp BP Pulse Ox 36.7 C 67 16 122/68 H 92 03/19/17 08:00 03/19/17 08:00 03/19/17 08:00 03/19/17 08:00 03/19/17 08:00 Laboratory Results 03/17/17 05:02 03/19/17 05:20 03/18/17 03/19/17 03/20/17 05:59 05:59 05:59 Intake Total 67 600 Output Total 3505 200 Balance 67 -2905 -200 - Physical Exam Constitutional: appears nourished, chronically ill appearing Eyes: PERRL, anicteric sclera Ears, Nose, Mouth, Throat: moist mucous membranes, hearing normal Cardiovascular: No JVD, No edema Respiratory: no respiratory distress, reduced air movement Gastrointestinal: No ascites, No guarding Skin: warm, other (woundvac) Musculoskeletal: no joint effusions, generalized weakness Neurologic: No AAOx3 Psychiatric: not anxious, poor insight, poor judgement, poor memory ICD10 Worksheet Patient Problems: Problems Problem Status Onset Cellulitis of left leg Acute
--- NOTE | 2017-03-19 09:48 | HOSPPROG ---
Hospitalist Progress Note Assessment/Plan: 56y female with c/o leg pain. #LLE cellulitis/ MSSA Cefazolin wound vac in place s/p I & D today and debridement picc placed #Hypokalemia replace #Tobacco abuse education/nicotine patch not ordered/doing well without #delirium has some confusion #Tachy none today #Hx of asthma monitor O2 #ALEXANDRE antibiotics adjusted better #Homelessness discuss with CM / she is new to [place]/ looking at [place] possibly doesn't want to go to the jail due to bugs there #DVT prophylaxis : LMWh #Plan: repeat labs in a.m., CM looking at placement where she will get good wound care. Subjective: Up walking with therapy. Some confusion. Objective: Vital Signs Temp Pulse Resp BP Pulse Ox 36.7 C 67 16 122/68 H 92 03/19/17 08:00 03/19/17 08:00 03/19/17 08:00 03/19/17 08:00 03/19/17 08:00 Laboratory Results 03/17/17 05:02 03/19/17 05:20 03/18/17 03/19/17 03/20/17 05:59 05:59 05:59 Intake Total 67 600 Output Total 3505 200 Balance 67 -2905 -200 - Physical Exam Constitutional: appears nourished, chronically ill appearing Eyes: PERRL, anicteric sclera Ears, Nose, Mouth, Throat: moist mucous membranes, hearing normal Cardiovascular: No JVD, No edema Respiratory: no respiratory distress, reduced air movement Gastrointestinal: No ascites, No guarding Skin: warm, other (woundvac) Musculoskeletal: no joint effusions, generalized weakness Neurologic: No AAOx3 Psychiatric: not anxious, poor insight, poor judgement, poor memory ICD10 Worksheet Patient Problems: Problems Problem Status Onset Cellulitis of left leg Acute
[2017-03-19] MEDS: MULTIVITAMINS 1 EACH TAB PO SCH (10:02)
[2017-03-19] MEDS: GABAPENTIN 400 MG CAP PO SCH ×3 (10:02→20:55)
[2017-03-19] MEDS: ENOXAPARIN 40 MG/0.4 ML SYR SC SCH (10:02)
--- NOTE | 2017-03-19 10:39 | SOAPPROG ---
SOAP Progress Note Assessment/Plan: POD#1 03/15/17 09:22 Assessment: Wound growing MSSA. Wound vac drainage 175cc since surgery. It is serous. 4+ Edema continues. Plan: Wound re-evaluation in OR tomorrow with debridement and replacement of wound vac. POD#2 03/16/17 07:03 Assessment: Edema, erythema and tenderness less. Wound vac output not recorded Plan: Debride wound and change wound vac in OR today POD#4,2 and today 03/18/17 09:18 Assessment: Minimal debridement today. Will be able to switch to beside dressing changes. Will not be able to close wound primarily and will need skin graft. Plan: Continue antibiotic and wound vac therapy. Next wound vac change will be bedside on Monday. STSG (split thickness skin graft) may be possible on Monday. POD#5,3,1 03/19/17 10:36 Assessment: 125cc out wound vac since surgery. Leg looks good Plan: bedside wound vac change at bedside by wound care team tomorrow. STSG possibly Monday or by Dr. Grajeda Objective: Vital Signs Temp Pulse Resp BP Pulse Ox 36.7 C 67 16 122/68 H 92 03/19/17 08:00 03/19/17 08:00 03/19/17 08:00 03/19/17 08:00 03/19/17 08:00 Laboratory Results 03/17/17 05:02 03/19/17 05:20 03/18/17 03/19/17 03/20/17 05:59 05:59 05:59 Intake Total 67 600 Output Total 3505 600 Balance 98 -7575 -600 - Time Spent With Patient Time Spent With Patient: 15 - Pending Discharge Pending Discharge Within 24 Hours: No Pending Discharge Within 48 Hours: No ICD10 Worksheet Patient Problems: Problems Problem Status Onset Cellulitis of left leg Acute
[2017-03-19] MEDS: ACETAMINOPHEN 325 MG TAB PO PRN ×2 (13:02→17:53)
--- NOTE | 2017-03-19 14:53 | ASMTCMCOM ---
CM Note CM Note Notes: Pt is scheduled for wound vac change tomorrow. CM still researching potential SNF to take pt with wound vac. Date Signed: 03/19/2017 02:53 PM Electronically Signed By:MARIN Rousseau
[2017-03-19] MEDS: LORazepam 0.5 MG TAB PO PRN ×2 (16:10→20:55)
--- NOTE | 2017-03-19 17:23 | PCMIDPN ---
Assessment/Plan: Assessment/Plan: * Left lower extremity abscess/myositis s/p incision and drainage X 2: Continued clinical improvement. Wound VAC remains in place with resolution of cellulitic change. Will increase cefazolin to q.8 hours dosing based on improved creatinine. Possible skin graft mid week. Do not anticipate prolonged course of IV antibiotic therapy. Likely will continue through skin grafting with plans to discontinue thereafter. 03/19/17 17:21 Subjective: Patient complains of left lower extremity pain. Objective: Vital Signs Temp Pulse Resp BP Pulse Ox 36.9 C 69 18 133/90 H 93 03/19/17 16:00 03/19/17 16:00 03/19/17 16:00 03/19/17 16:00 03/19/17 16:00 Laboratory Results 03/17/17 05:02 03/19/17 05:20 03/18/17 03/19/17 03/20/17 05:59 05:59 05:59 Intake Total 67 600 Output Total 3505 1200 Balance 67 -2905 -1200 C-Reactive Protein 78.7 mg/L (<10.0) H 03/14/17 00:45 Cefazolin # 4, antibiotics # 6 Blood cultures x2 no growth - Physical Exam General Appearance: alert, no apparent distress EENT: No scleral icterus Extremities: inflammation (Left lower extremity wound VAC in place; some peeling of skin distal to vac dressing; no residual erythema, tender to palpation around VAC dressing) Lymphatic: other (No left lower extremity lymphangitis) - Line/s RUE PICC Lines: No drainage, No erythema ICD10 Worksheet Patient Problems: Problems Problem Status Onset Cellulitis of left leg Acute
[2017-03-20] MEDS: oxyCODONE IR 5 MG TAB PO PRN ×5 (01:50→19:33)
[2017-03-20] MEDS: GABAPENTIN 400 MG CAP PO SCH ×3 (08:13→21:21)
[2017-03-20] MEDS: MULTIVITAMINS 1 EACH TAB PO SCH (08:14)
[2017-03-20] MEDS: HYDROmorphone HCL/NS/PF 0.4 MG/2 ML SYR IVP PRN (10:17)
--- NOTE | 2017-03-20 10:45 | SOAPPROG ---
SOAP Progress Note Assessment/Plan: POD#1 03/15/17 09:22 Assessment: Wound growing MSSA. Wound vac drainage 175cc since surgery. It is serous. 4+ Edema continues. Plan: Wound re-evaluation in OR tomorrow with debridement and replacement of wound vac. POD#2 03/16/17 07:03 Assessment: Edema, erythema and tenderness less. Wound vac output not recorded Plan: Debride wound and change wound vac in OR today POD#4,2 and today 03/18/17 09:18 Assessment: Minimal debridement today. Will be able to switch to beside dressing changes. Will not be able to close wound primarily and will need skin graft. Plan: Continue antibiotic and wound vac therapy. Next wound vac change will be bedside on Monday. STSG (split thickness skin graft) may be possible on Monday. POD#5,3,1 03/19/17 10:36 Assessment: 125cc out wound vac since surgery. Leg looks good Plan: bedside wound vac change at bedside by wound care team tomorrow. STSG possibly Monday or by Dr. Grajeda POD#6,4,2 03/20/17 10:41 Assessment: wound with 98% granulation tissue. Expect STSG could be done in next few days. Plan: wound vac replaced. Will ask Dr. Grajeda to assume care tomorrow Subjective: wound pain is still an intermittent issue Objective: Vital Signs Temp Pulse Resp BP Pulse Ox 36.9 C 68 18 142/71 H 91 L 03/20/17 07:32 03/20/17 07:32 03/20/17 07:32 03/20/17 07:32 03/20/17 07:32 Laboratory Results 03/17/17 05:02 03/19/17 05:20 03/19/17 03/20/17 03/21/17 05:59 05:59 05:59 Intake Total 600 900 Output Total 3505 3700 Balance -2905 -2800 - Time Spent With Patient Time Spent With Patient: 15 - Pending Discharge Pending Discharge Within 24 Hours: No Pending Discharge Within 48 Hours: No Physical Exam - Physical Exam General Appearance: WD/WN, alert, no apparent distress Extremities: other (wound has ~98% granulation tissue.) ICD10 Worksheet Patient Problems: Problems Problem Status Onset Cellulitis of left leg Acute
[2017-03-20] MEDS: ENOXAPARIN 40 MG/0.4 ML SYR SC SCH (11:41)
--- NOTE | 2017-03-20 12:10 | WOCRNPDOC ---
WOCRN Advanced Assessment Note - Skin Integrity Problem, Advanced Assess Left Anterior Knee Surgical Wound/Incision Dressing Type: Black Vac Foam, Wound Vac Dressing Description: Clean/Dry, Intact Exudate Amount: Minimal Exudate Color: Red Exudate Characteristic(s): Bloody Integumentary Issue Intervention: Dressing Changed Noemi Wound Tissue: Erythema, Swollen Noemi Wound Swelling: Moderate Wound Bed Color: Red, White Wound Bed Constitution: Granulation Tissue (95%), Undermining (From 1-4 o'clock (1.6 cm to 1.1cm), and 10-11 o'clock 0.4cm), Tendon (5%) Wound Edges: Epithelizing, Attached, Well Defined Site Odor: None Site Measurement - Head-to-Toe Length X Width X Depth (cm): 14.8cmx6.8cmx1.1cm Skin Integrity Problem Comment: Wound cleaned with NS and gauze. Noemi wound skin prepped and draped. Four pieces black simplace foam used to fill wound bed with one of the pieces cut into 1/2 width and placed under the portion of undermining from 1-4 o'clock. One piece of white foam cut to 1/2 width placed over of exposed tendon. Vac placed to -125mmHg suction with good seal. Patient with significant amount of pain during dressing change despite being premedicated. If this patient doesn't go to the OR on Mon for graphing, will likely need either topical lidocaine, or increased pain medication for next vac change. ALYSHA Gurrola and RN Radha in room during procedure. All patient questions answered. Wound care will round again on the patient on Monday, 03/22.
--- NOTE | 2017-03-20 14:42 | HOSPPROG ---
Hospitalist Progress Note Assessment/Plan: 56y female with c/o leg pain. Reviewed with Dr Huston. #LLE cellulitis/ MSSA Cefazolin wound vac in place s/p I & D and debridement picc placed will need skin graft #Hypokalemia replace #Tobacco abuse education/nicotine patch not ordered/doing well without #delirium has some confusion #Tachy none today #Hx of asthma monitor O2 #ALEXANDRE antibiotics adjusted better #Homelessness discuss with CM / she is new to [place]/ looking at [facility] [place] possibly doesn't want to go to the half-way due to bugs there #DVT prophylaxis : LMWh #Plan:will need graft further abx Subjective: No issues. Walking. No pain. Objective: Vital Signs Temp Pulse Resp BP Pulse Ox 37.0 C 69 20 135/74 H 93 03/20/17 11:15 03/20/17 11:15 03/20/17 11:15 03/20/17 11:15 03/20/17 11:15 Laboratory Results 03/17/17 05:02 03/19/17 05:20 03/19/17 03/20/17 03/21/17 05:59 05:59 05:59 Intake Total 600 900 Output Total 3505 3700 Balance -2905 -2800 - Physical Exam Constitutional: appears nourished, not in pain, chronically ill appearing Eyes: PERRL, anicteric sclera, EOMI Ears, Nose, Mouth, Throat: moist mucous membranes, hearing normal, ears appear normal Cardiovascular: regular rate and rhythym, No JVD, No edema Respiratory: no respiratory distress, no rales or rhonchi, reduced air movement Gastrointestinal: normoactive bowel sounds, No tenderness, No ascites Skin: warm, normal color, erythema Musculoskeletal: normal joint ROM, no joint effusions, generalized weakness Psychiatric: not anxious, not encephalopathic, poor insight, poor judgement ICD10 Worksheet Patient Problems: Problems Problem Status Onset Cellulitis of left leg Acute
--- NOTE | 2017-03-20 16:01 | ASMTCMCOM ---
TROY Note TROY Note Notes: Patient given pants as hers are dirty and she does not have clothes here to d/c in. TROY continues to research SNF placement with a wound vac. Date Signed: 03/20/2017 04:00 PM Electronically Signed By:Shania Limon LCSW
--- NOTE | 2017-03-20 18:19 | PCMIDPN ---
Assessment/Plan: Assessment: L leg abscess secondary to MSSA -- on cefazolin and slated to have grafting over L leg defect on Monday. Planning on onitnueing IV abx coverage until graft is well seated. Plan: 1) Continue IV cefazolin. 2) Skin grafting on Monday. 03/20/17 23:22 03/20/17 23:22 Subjective: Patient is up walking the halls with PT. No new issues. Tolerating cefazolin without rash or diarrhea. Objective: cefazolin # 5 Abx #7 Vital Signs Temp Pulse Resp BP Pulse Ox 37.0 C 72 20 141/105 H 90 L 03/20/17 16:00 03/20/17 16:00 03/20/17 16:00 03/20/17 16:00 03/20/17 16:00 Laboratory Results 03/17/17 05:02 03/19/17 05:20 03/19/17 03/20/17 03/21/17 05:59 05:59 05:59 Intake Total 600 900 Output Total 3505 3700 Balance -2905 -2800 C-Reactive Protein 78.7 mg/L (<10.0) H 03/14/17 00:45 - Physical Exam General Appearance: WD/WN, alert, no apparent distress, non-toxic Respiratory: lungs clear, normal breath sounds, No respiratory distress Cardiac/Chest: regular rate, rhythm, No tachycardia Extremities: No normal inspection, No necrosis Skin: normal color, warm/dry, No rash Neuro/Psych: alert, normal mood/affect, oriented x 3 ICD10 Worksheet Patient Problems: Problems Problem Status Onset Cellulitis of left leg Acute
[2017-03-20] MEDS: LORazepam 0.5 MG TAB PO PRN (20:20)
[2017-03-21] MEDS: HYDROmorphone HCL/NS/PF 0.4 MG/2 ML SYR IVP PRN ×5 (00:55→17:18)
--- NOTE | 2017-03-21 08:44 | SOAPPROG ---
SOAP Progress Note Assessment/Plan: Assessment: LLE wound. To OR today for debridement and STSG NPO Therapeutic antibiotics Plan: 03/21/17 08:44 Objective: Vital Signs Temp Pulse Resp BP Pulse Ox 36.9 C 68 20 154/85 H 93 03/21/17 08:00 03/21/17 08:00 03/21/17 08:00 03/21/17 08:00 03/21/17 08:00 Laboratory Results 03/17/17 05:02 03/21/17 04:00 03/20/17 03/21/17 03/22/17 05:59 05:59 05:59 Intake Total 900 650 Output Total 3700 Balance -2800 650 ICD10 Worksheet Patient Problems: Problems Problem Status Onset Cellulitis of left leg Acute
[2017-03-21] MEDS: GABAPENTIN 400 MG CAP PO SCH ×3 (09:59→20:47)
[2017-03-21] MEDS: MULTIVITAMINS 1 EACH TAB PO SCH (09:59)
[2017-03-21] MEDS ORDERED: THROMBIN (BOVINE) 20,000 UNIT SPRAY TP ONE (10:43)
[2017-03-21] MEDS ORDERED: BUPIVACAINE 0.5% 30 ML SDV ONE (10:44)
[2017-03-21] MEDS ORDERED: MINERAL OIL 10 ML VIAL ONE (10:44)
[2017-03-21] MEDS ORDERED: LR 1,000 ML IV ONE (10:59)
[2017-03-21] MEDS: ENOXAPARIN 40 MG/0.4 ML SYR SC SCH (11:40)
[2017-03-21] MEDS ORDERED: fentaNYL 100 MCG/2 ML INJ IVP ONE (11:44)
[2017-03-21] MEDS ORDERED: MIDAZOLAM 2 MG/2 ML VIAL IVP ONE (11:44)
--- NOTE | 2017-03-21 11:44 | PDANEPAE ---
ANE History of Present Illness here for LE skin graft ANE Past Medical History - Cardiovascular History Hx Hypertension: Yes Hx Arrhythmias: No Hx Chest Pain: No Hx Coronary Artery / Peripheral Vascular Disease: No Hx CHF / Valvular Disease: Yes Hx Palpitations: No - Pulmonary History Hx COPD: Yes Hx Asthma/Reactive Airway Disease: Yes Hx Oxygen in Use at Home: No Hx Sleep Apnea: No Sleep Apnea Screening Result - Last Documented: Positive - Endocrine History Hx Diabetes: No - Liver History Hx Hepatic Disorders: Yes Hepatic History Comment: hx of hep c - Chronic Pain History Chronic Pain: Yes ANE Review of Systems Review of systems is: negative Review of Systems: - Exercise capacity Exercise capacity: >=4 METS ANE Patient History - Allergies Allergies/Adverse Reactions: No Known Allergies Allergy (Verified 03/13/17 13:59) - Home Medications Home medications: home medication list seen and reviewed Home Medications: Gabapentin [Neurontin 400 MG (*)] 1,200 mg PO TID 03/13/17 [Last Taken 03/13/17 08:00] - NPO status NPO Status: no food or drink >8 hours NPO Since - Liquids (Date): 03/21/17 NPO Since - Liquids (Time): 00:05 NPO Since - Solids (Date): 03/20/17 NPO Since - Solids (Time): 18:30 - Anes Hx Anes Hx: no prior problems - Smoking Hx Smoking Status: Current some day smoker - Alcohol Use Alcohol Use: Occasionally ANE Labs/Vital Signs - Labs Result Diagrams: 03/17/17 05:02 03/21/17 04:00 - Vital Signs Blood Pressure: 155/90 Heart Rate: 66 Respiratory Rate: 16 O2 Sat (%): 91 Height: 157.48 cm Weight: 62.596 kg ANE Physical Exam - Airway Neck exam: FROM Mallampati Score: Class 1 Mouth exam: normal dental/mouth exam, poor dentition, dentures ANE Anesthesia Plan Anesthesia Plan: GA w LMA
--- NOTE | 2017-03-21 12:00 | HOSPPROG ---
Hospitalist Progress Note Assessment/Plan: 56y female with c/o leg pain. #LLE cellulitis/ MSSA Cefazolin wound vac in place s/p I & D and debridement picc placed will need skin graft #Hypokalemia replace #Tobacco abuse education/nicotine patch not ordered/doing well without #delirium has some confusion #Tachy none today #Hx of asthma monitor O2 #ALEXANDRE antibiotics adjusted better #Homelessness discuss with CM / she is new to [place]/ looking at [facility] possibly doesn't want to go to the skilled nursing due to bugs there #DVT prophylaxis : LMWh #Plan:will need graft further abx Subjective: Having some pain. Awaiting procedure. Objective: Vital Signs Temp Pulse Resp BP Pulse Ox 37.1 C 66 16 155/90 H 91 L 03/21/17 10:08 03/21/17 11:43 03/21/17 11:43 03/21/17 11:43 03/21/17 11:43 Laboratory Results 03/17/17 05:02 03/21/17 04:00 03/20/17 03/21/17 03/22/17 05:59 05:59 05:59 Intake Total 900 650 Output Total 3700 Balance -2800 650 - Physical Exam Constitutional: chronically ill appearing, uncomfortable Eyes: PERRL, anicteric sclera Ears, Nose, Mouth, Throat: moist mucous membranes, hearing normal Cardiovascular: No JVD, No edema Respiratory: no respiratory distress, reduced air movement Gastrointestinal: No ascites, No guarding Skin: warm, erythema Musculoskeletal: no joint effusions, generalized weakness Psychiatric: not anxious, not encephalopathic, poor insight, poor memory ICD10 Worksheet Patient Problems: Problems Problem Status Onset Cellulitis of left leg Acute
[2017-03-21] MEDS ORDERED: PROPOFOL/EMULSION 500 MG/50 ML BOTTLE IV ONE (12:01)
[2017-03-21] MEDS ORDERED: fentaNYL 100 MCG/2 ML INJ ONE ×3 (12:22→13:17)
[2017-03-21] MEDS ORDERED: NS 500 ML IV PRN (12:39)
[2017-03-21] MEDS ORDERED: PROMETHAZINE HCL 25 MG/ML INJ IVP PRN (12:39)
[2017-03-21] MEDS ORDERED: ALBUTEROL 3 ML DEYVIAL IH PRN (12:39)
[2017-03-21] MEDS ORDERED: NALOXONE HCL 0.4 MG/ML INJ IVP PRN (12:39)
[2017-03-21] MEDS ORDERED: ONDANSETRON 4 MG/2 ML VIAL IVP PRN (12:39)
[2017-03-21] MEDS ORDERED: DEXAMETHASONE 4 MG/ML VIAL IVP PRN (12:39)
--- NOTE | 2017-03-21 13:11 | POSTOPPROG ---
Post Op Note Date of Operation: 03/21/17 Surgeon: Erica Grajeda Tribunal Member: alysia Anesthesiologist: lynn Anesthesia: GET(General Endotracheal) Pre-op Diagnosis: LLE wound Post-op Diagnosis: same Indication: 56yo F with LLE wound s/p debridement and wound vac therapy Procedure: LLE debridement with misonix and STSG with wound vac placement Findings: 14 x 11 x 0.5cm Inf/Abcess present in the surg proc area at time of surgery?: Yes Depth: Superfical (Skin SQ) EBL: Minimal Drains: Wound Vac
[2017-03-21] MEDS: fentaNYL 100 MCG/2 ML INJ IVP PRN ×2 (13:21→13:29)
[2017-03-21] MEDS ORDERED: HYDROmorphONE/DILAUDID 1 MG/ML INJ ONE (13:31)
[2017-03-21] MEDS: HYDROmorphONE/DILAUDID 1 MG/ML INJ IVP PRN ×3 (13:38→14:05)
--- NOTE | 2017-03-21 15:42 | ASMTCMCOM ---
CM Note CM Note Notes: Spoke with [facility] regarding patient being placed with them. Gibson states they are interested and can take her but she cannot come with a wound vac. ( with Medicaid only he states it is not cost effective for them). Spoke with patient's nurse, Radha who is uncertain how much longer patient will need the wound vac. Radha found out Dr. Grajeda wishes current wound vac dressing to remain in place until 2016. Radha does not know how much longer patient will need to be in the hospital but says there is a chance she may need another week here. TROY will pursue another facility that may take her with a wound vac but keep [facility] on the list should the dates and removal of the wound vac work out before d/c. [facility] will need medical updates on the patient on Monday. TROY will follow. Date Signed: 03/21/2017 03:42 PM Electronically Signed By:Shania Limon LCSW
[2017-03-21] MEDS: oxyCODONE IR 5 MG TAB PO PRN ×3 (16:34→22:44)
[2017-03-21] MEDS: LORazepam 0.5 MG TAB PO PRN (20:48)
[2017-03-22] MEDS: oxyCODONE IR 5 MG TAB PO PRN ×6 (01:52→22:50)
[2017-03-22] MEDS: LORazepam 0.5 MG TAB PO PRN ×4 (01:52→22:49)
--- NOTE | 2017-03-22 07:23 | GOP ---
[f rep st] OPERATIVE REPORT DATE OF OPERATION: 04/20/2017 SURGEON: Erica Grajeda MD SOCIAL MEDIA INTERN: Tracey Ricci, STEPHY. ANESTHESIA: Dr. Taco Wilkins/general. PREOPERATIVE DIAGNOSIS: Left lower extremity wound due to infection. POSTOPERATIVE DIAGNOSIS: Left lower extremity wound due to infection. PROCEDURE PERFORMED: Excisional debridement skin soft tissue, measuring 14 x 11 x 0.5 sq cm with split-thickness skin graft. FINDINGS: Severe undermining both medial and lateral, small, less than 2 square cm in two separate areas that did not have abundant granulation tissue. Wound measures [id number] sq cm SPECIMENS: None. ESTIMATED BLOOD LOSS: 20 mL INDICATIONS: The patient is a 56-year-old woman who presented with infection on her left lower extremity. She underwent serial debridements and wound VAC changes by Dr. Huston. I assumed her care. DESCRIPTION OF PROCEDURE: The patient was brought into the operating room, placed supine on the table, and general anesthesia was administered. Her left lower leg and thigh were prepped and draped in the usual sterile fashion. I examined the wound on her left lower extremity. There was severe undermining both medially and laterally. I performed excision of the skin in this area. I used Misonix for contact ultrasonic debridement of the subcutaneous tissue until there was healthy bleeding tissue. The wound measures 14 x 11 x 0.5 cm. There are only 2 areas, less than 1 sq cm each, where there is not abundant healthy granulation tissue. I then obtained a split-thickness skin graft from her left upper thigh at 1/12,000 of an inch with the Veena dermatome. I hand pie crusted the graft. I placed this on the wound bed and stapled it into place. Hemostasis was achieved on the donor site with epinephrine-soaked sponge followed by electrocautery. The Graftsite was dressed with Adaptic Touch and a wound VAC. Ketty, Mepilex transfer, and a Tegaderm were placed on the donor site. She was awakened in the operating room, extubated, transferred to PACU in stable condition. /[id number]/MODL MTDD
--- NOTE | 2017-03-22 07:23 | GOP ---
[f rep st] OPERATIVE REPORT DATE OF OPERATION: 04/20/2017 SURGEON: Erica Grajeda MD MILK WAGON DRIVER: Tracey Ricci, STEPHY. ANESTHESIA: Dr. Taco Wilkins/general. PREOPERATIVE DIAGNOSIS: Left lower extremity wound due to infection. POSTOPERATIVE DIAGNOSIS: Left lower extremity wound due to infection. PROCEDURE PERFORMED: Excisional debridement skin soft tissue, measuring 14 x 11 x 0.5 sq cm with split-thickness skin graft. FINDINGS: Severe undermining both medial and lateral, small, less than 2 square cm in two separate areas that did not have abundant granulation tissue. Wound measures [id number] sq cm SPECIMENS: None. ESTIMATED BLOOD LOSS: 20 mL INDICATIONS: The patient is a 56-year-old woman who presented with infection on her left lower extremity. She underwent serial debridements and wound VAC changes by Dr. Huston. I assumed her care. DESCRIPTION OF PROCEDURE: The patient was brought into the operating room, placed supine on the table, and general anesthesia was administered. Her left lower leg and thigh were prepped and draped in the usual sterile fashion. I examined the wound on her left lower extremity. There was severe undermining both medially and laterally. I performed excision of the skin in this area. I used Misonix for contact ultrasonic debridement of the subcutaneous tissue until there was healthy bleeding tissue. The wound measures 14 x 11 x 0.5 cm. There are only 2 areas, less than 1 sq cm each, where there is not abundant healthy granulation tissue. I then obtained a split-thickness skin graft from her left upper thigh at 1/12,000 of an inch with the Veena dermatome. I hand pie crusted the graft. I placed this on the wound bed and stapled it into place. Hemostasis was achieved on the donor site with epinephrine-soaked sponge followed by electrocautery. The Graftsite was dressed with Adaptic Touch and a wound VAC. Ktety, Mepilex transfer, and a Tegaderm were placed on the donor site. She was awakened in the operating room, extubated, transferred to PACU in stable condition. /[id number]/MODL MTDD
--- NOTE | 2017-03-22 07:23 | GOP ---
[f rep st] OPERATIVE REPORT DATE OF OPERATION: 04/20/2017 SURGEON: Erica Grajeda MD TECHNICAL SUPPORT COORDINATOR: Tracey Ricci, STEPHY. ANESTHESIA: Dr. Taco Wilkins/general. PREOPERATIVE DIAGNOSIS: Left lower extremity wound due to infection. POSTOPERATIVE DIAGNOSIS: Left lower extremity wound due to infection. PROCEDURE PERFORMED: Excisional debridement skin soft tissue, measuring 14 x 11 x 0.5 sq cm with split-thickness skin graft. FINDINGS: Severe undermining both medial and lateral, small, less than 2 square cm in two separate areas that did not have abundant granulation tissue. Wound measures [id number] sq cm SPECIMENS: None. ESTIMATED BLOOD LOSS: 20 mL INDICATIONS: The patient is a 56-year-old woman who presented with infection on her left lower extremity. She underwent serial debridements and wound VAC changes by Dr. Huston. I assumed her care. DESCRIPTION OF PROCEDURE: The patient was brought into the operating room, placed supine on the table, and general anesthesia was administered. Her left lower leg and thigh were prepped and draped in the usual sterile fashion. I examined the wound on her left lower extremity. There was severe undermining both medially and laterally. I performed excision of the skin in this area. I used Misonix for contact ultrasonic debridement of the subcutaneous tissue until there was healthy bleeding tissue. The wound measures 14 x 11 x 0.5 cm. There are only 2 areas, less than 1 sq cm each, where there is not abundant healthy granulation tissue. I then obtained a split-thickness skin graft from her left upper thigh at 1/12,000 of an inch with the Veena dermatome. I hand pie crusted the graft. I placed this on the wound bed and stapled it into place. Hemostasis was achieved on the donor site with epinephrine-soaked sponge followed by electrocautery. The Graftsite was dressed with Adaptic Touch and a wound VAC. Ketty, Mepilex transfer, and a Tegaderm were placed on the donor site. She was awakened in the operating room, extubated, transferred to PACU in stable condition. /[id number]/MODL MTDD
[2017-03-22 08:26] LABS: PLATELET COUNT 397 10^3/uL (150-400)
[2017-03-22] MEDS: MULTIVITAMINS 1 EACH TAB PO SCH (08:29)
[2017-03-22] MEDS: ENOXAPARIN 40 MG/0.4 ML SYR SC SCH (08:29)
[2017-03-22] MEDS: HYDROmorphone HCL/NS/PF 0.4 MG/2 ML SYR IVP PRN ×2 (08:29→20:13)
[2017-03-22] MEDS: GABAPENTIN 400 MG CAP PO SCH ×3 (08:29→21:17)
--- NOTE | 2017-03-22 08:48 | HOSPPROG ---
Hospitalist Progress Note Assessment/Plan: 56y female with c/o leg pain. #LLE cellulitis/ MSSA Cefazolin wound vac place s/p I & D with skin graft placement on 03/21/2017 fever earlier today #Hypokalemia replace #Tobacco abuse education/nicotine patch not ordered/doing well without #delirium resolved #Tachy none today #Hx of asthma monitor O2 #Homelessness #DVT prophylaxis : LMWh #Plan: Will discuss with the Surgical Team how long she will need the wound VAC. Once the wound VAC is removed she can go to [facility]. In addition will add bowel protocol because she is on narcotics. Subjective: Elaine is feeling well overall. Objective: Vital Signs Temp Pulse Resp BP Pulse Ox 36.8 C 106 H 16 124/86 H 91 L 03/22/17 07:42 03/22/17 07:42 03/22/17 07:42 03/22/17 07:42 03/22/17 07:42 Laboratory Results 03/22/17 08:15 03/22/17 08:15 03/21/17 03/22/17 03/23/17 05:59 05:59 05:59 Intake Total 650 2180 Output Total 845 Balance 650 1335 - Physical Exam Constitutional: chronically ill appearing Eyes: PERRL Ears, Nose, Mouth, Throat: hearing normal Cardiovascular: regular rate and rhythym Respiratory: no respiratory distress Skin: warm, other (left upper thigh w dressing/ graft site/ left lower ext w wound vac) Musculoskeletal: generalized weakness Neurologic: AAOx3, sensation intact bilaterally Psychiatric: interacting appropriately, not anxious ICD10 Worksheet Patient Problems: Problems Problem Status Onset Cellulitis of left leg Acute
[2017-03-22] MEDS ORDERED: LACTULOSE 20 GM/30 ML UDCUP PO PRN (10:25)
[2017-03-22] MEDS ORDERED: BISACODYL 10 MG SUPP PR PRN (10:25)
[2017-03-22] MEDS ORDERED: MAGNESIUM HYDROXIDE 30 ML UDCUP PO PRN (10:25)
--- NOTE | 2017-03-22 11:27 | SOAPPROG ---
SOAP Progress Note Assessment/Plan: Assessment: 56yo F with LLE wound POD#1 s/p debridement with STSG Wound vac intact to suction. Will remain in place until Monday May change left upper thigh dressing as needed Pain controlled IV antibiotics Appreciate hospitalists management of comorbidities Dispo: will need to remain inpatient through monday due to inability to get wound vac as an outpatient. Seen c Dr. Grajeda. S: No complaints today O: sitting on commode, NAD No increased WOB L thigh dressing saturated - needs to be changed LLE wound vac intact to suction, Min surrounding erythema Objective: Vital Signs Temp Pulse Resp BP Pulse Ox 36.8 C 106 H 16 124/86 H 91 L 03/22/17 07:42 03/22/17 07:42 03/22/17 07:42 03/22/17 07:42 03/22/17 07:42 Laboratory Results 03/22/17 08:15 03/22/17 08:15 03/21/17 03/22/17 03/23/17 05:59 05:59 05:59 Intake Total 650 2180 Output Total 845 Balance 650 1335 ICD10 Worksheet Patient Problems: Problems Problem Status Onset Cellulitis of left leg Acute
[2017-03-22] MEDS: POLYETHYLENE GLYCOL 3350 17 GM PKT PO SCH (14:17)
--- NOTE | 2017-03-22 15:17 | ASMTCMCOM ---
CM Note CM Note Notes: Today hospitalist confirmed w/ surgeon that Pt. will need wound vac on at least until Monday03/27/2017. Possible d/c that day or soon thereafter. Plan is to keep Pt. at [facility] until then. Ted called Gibson at [facility] to check in about d/c plan. Gibson will consult with MV team today about Pt.'s admission without wound vac for early next week. Await Gibson's return call. Amitar met w/ Pt. in room. Pt. agrees w/ d/c plan. Pt. very focused on getting her backpack back from homeless campsite. Pt. states she has her very important documentation in it - to include her social security card. Pt. would like to have a 'pass' to leave hospital to get it, but Ted explained why that was not possible. Pt. agreed for Ted to call the [facility] Homeless Outreach Team (HOT) (Officer John Fischer and Officer Ale Dorado) to see if they could vegetable picker the backpack. Pt. will need to describe location to officers. Tried to call officer Estrada's cell phone, but it went straight to voicemail. Await officer's return call. Pt. states she "need[s] to get shoulder surgery". We discussed penitentiary plans and that we will address her concerns and discuss pre-surgery appointment for shoulder before d/c. Pt. states she has a CD disc showing her shoulder injuries in her backpack. Current plan: Await acceptance from [facility] stay. Anticipate d/c next Monday or soon thereafter. Date Signed: 03/22/2017 03:17 PM Electronically Signed By:Radha Ho LCSW
--- NOTE | 2017-03-22 15:17 | ASMTCMCOM ---
CM Note CM Note Notes: Today hospitalist confirmed w/ surgeon that Pt. will need wound vac on at least until Monday03/27/2017. Possible d/c that day or soon thereafter. Plan is to keep Pt[facility] at [facility] until then. Ted called Gibson at [facility] to check in about d/c plan. Gibson will consult with MV team today about Pt.'s admission without wound vac for early next week. Await Gibson's return call. Amitar met w/ Pt. in room. Pt. agrees w/ d/c plan. Pt. very focused on getting her backpack back from homeless campsite. Pt. states she has her very important documentation in it - to include her social security card. Pt. would like to have a 'pass' to leave hospital to get it, but Ted explained why that was not possible. Pt. agreed for Ted to call the [facility] Homeless Outreach Team (HOT) (Officer John Fischre and Officer Ale Dorado) to see if they could picker machine operator the backpack. Pt. will need to describe location to officers. Tried to call officer Estrada's cell phone, but it went straight to voicemail. Await officer's return call. Pt. states she "need[s] to get shoulder surgery". We discussed senior living plans and that we will address her concerns and discuss pre-surgery appointment for shoulder before d/c. Pt. states she has a CD disc showing her shoulder injuries in her backpack. Current plan: Await acceptance from [facility] skilled nursing stay. Anticipate d/c next Monday or soon thereafter. Date Signed: 03/22/2017 03:17 PM Electronically Signed By:Radha Ho LCSW
--- NOTE | 2017-03-22 15:17 | ASMTCMCOM ---
CM Note CM Note Notes: Today hospitalist confirmed w/ surgeon that Pt. will need wound vac on at least until Monday03/27/2017. Possible d/c that day or soon thereafter. Plan is to keep Pt. at [facility] until then. Ted called Gibson at [facility] to check in about d/c plan. Gibson will consult with MV team today about Pt.'s admission without wound vac for early next week. Await Gibson's return call. Amitar met w/ Pt. in room. Pt. agrees w/ d/c plan. Pt. very focused on getting her backpack back from homeless campsite. Pt. states she has her very important documentation in it - to include her social security card. Pt. would like to have a 'pass' to leave hospital to get it, but Ted explained why that was not possible. Pt. agreed for Ted to call the [facility] Homeless Outreach Team (HOT) (Officer John Fischer and Officer Ale Dorado) to see if they could lemon picker the backpack. Pt. will need to describe location to officers. Tried to call officer Estrada's cell phone, but it went straight to voicemail. Await officer's return call. Pt. states she "need[s] to get shoulder surgery". We discussed fpc plans and that we will address her concerns and discuss pre-surgery appointment for shoulder before d/c. Pt. states she has a CD disc showing her shoulder injuries in her backpack. Current plan: Await acceptance from [facility] rtr[facility] intermediate stay. Anticipate d/c next Monday or soon thereafter. Date Signed: 03/22/2017 03:17 PM Electronically Signed By:Radha Ho LCSW
--- NOTE | 2017-03-22 16:47 | PCMIDPN ---
Assessment/Plan: # MSSA LLE cellulitis, myositis w abscess along anterior tibia, tendon exposure s/p dbridement multiple times and now skin grafting. No residual evidence of cellulitis today. wound vac in place post skin graft --discontinue cefazolin and monitor --LLE elevation Abx #8 cefazolin 1gm IV q8h Microbiology 03/13 blood cultures (2) neg 03/13 wound culture: MSSA Care coordinated with Dr. Grajeda Subjective: patient stating " i am already off antibiotics " Objective: Vital Signs Temp Pulse Resp BP Pulse Ox 37.1 C 73 18 140/74 H 92 03/22/17 16:00 03/22/17 16:00 03/22/17 16:00 03/22/17 16:00 03/22/17 16:00 Laboratory Results 03/22/17 08:15 03/22/17 08:15 03/21/17 03/22/17 03/23/17 05:59 05:59 05:59 Intake Total 650 2180 1000 Output Total 845 1200 Balance 650 1335 -200 C-Reactive Protein 78.7 mg/L (<10.0) H 03/14/17 00:45 - Physical Exam General Appearance: alert, no apparent distress Respiratory: No accessory muscle use Extremities: other (LLE no erythema, wound vac in place, minimal tenderness) Skin: No rash Neuro/Psych: alert, normal mood/affect ICD10 Worksheet Patient Problems: Problems Problem Status Onset Cellulitis of left leg Acute
[2017-03-22] MEDS: SENNOSIDES/DOCUSATE SODIUM TAB PO SCH (21:09)
[2017-03-23] MEDS: HYDROmorphone HCL/NS/PF 0.4 MG/2 ML SYR IVP PRN (01:38)
[2017-03-23] MEDS: POLYETHYLENE GLYCOL 3350 17 GM PKT PO SCH (09:03)
[2017-03-23] MEDS: SENNOSIDES/DOCUSATE SODIUM TAB PO SCH ×2 (09:03→22:22)
[2017-03-23] MEDS: GABAPENTIN 400 MG CAP PO SCH ×3 (09:03→21:12)
[2017-03-23] MEDS: MULTIVITAMINS 1 EACH TAB PO SCH (09:04)
[2017-03-23] MEDS: ENOXAPARIN 40 MG/0.4 ML SYR SC SCH (09:04)
[2017-03-23] MEDS: oxyCODONE IR 5 MG TAB PO PRN ×5 (09:08→22:20)
--- NOTE | 2017-03-23 10:23 | HOSPPROG ---
Hospitalist Progress Note Assessment/Plan: 56y female with c/o leg pain. #LLE cellulitis/ MSSA Cefazolin dc yesterday/ wound vac place s/p I & D with skin graft placement on 03/21/2017 #Pain due to recent surgery scheduled Tylenol and increased dose of oxy IR dc iv Dilaudid #Hypokalemia replace #Tobacco abuse education/nicotine patch not ordered/doing well without #delirium resolved #Tachy none today #Hx of asthma monitor O2 #Homelessness #DVT prophylaxis : LMWh #Plan: spoke with Dr Grajeda yesterday/ hopefully, will not need wound vac after Monday/ can go to SNF then Subjective: Elaine is c/o left leg pain. Objective: Vital Signs Temp Pulse Resp BP Pulse Ox 37.0 C 66 18 124/69 H 94 03/23/17 08:00 03/23/17 08:00 03/23/17 08:00 03/23/17 08:00 03/23/17 08:00 Laboratory Results 03/22/17 08:15 03/22/17 08:15 03/22/17 03/23/17 03/24/17 05:59 05:59 05:59 Intake Total 2180 1750 Output Total 845 2850 Balance 1335 -1100 - Physical Exam Constitutional: no apparent distress, appears nourished, chronically ill appearing, No not in pain Eyes: PERRL Ears, Nose, Mouth, Throat: hearing normal Cardiovascular: regular rate and rhythym Respiratory: no respiratory distress Gastrointestinal: normoactive bowel sounds Skin: warm, other (left upper thigh w dressing/ graft site/ left lower ext w wound vac) Musculoskeletal: muscular tenderness, generalized weakness Neurologic: AAOx3 Psychiatric: interacting appropriately ICD10 Worksheet Patient Problems: Problems Problem Status Onset Cellulitis of left leg Acute
--- NOTE | 2017-03-23 11:30 | SOAPPROG ---
SOAP Progress Note Assessment/Plan: Assessment: 03/23/17 11:28 Assessment: 56yo F with LLE wound POD#2 s/p debridement with STSG Wound vac intact to suction. Will remain in place until Monday May change left upper thigh dressing as needed Pain controlled Discontinued antibiotics yesterday. Will monitor off antibiotics. Appreciate hospitalists management of comorbidities Dispo: will need to remain inpatient through monday due to inability to get wound vac as an outpatient. Seen c Dr. Grajeda. S: No complaints today O: sitting on edge of bed eating breakfast No increased WOB L thigh dressing less saturated today- needs to be changed LLE wound vac intact to suction, surrounding erythema less today Objective: Vital Signs Temp Pulse Resp BP Pulse Ox 37.0 C 66 18 124/69 H 94 03/23/17 08:00 03/23/17 08:00 03/23/17 08:00 03/23/17 08:00 03/23/17 08:00 Laboratory Results 03/22/17 08:15 03/22/17 08:15 03/22/17 03/23/17 03/24/17 05:59 05:59 05:59 Intake Total 2180 1750 Output Total 843 6850 Balance 1335 -1100 ICD10 Worksheet Patient Problems: Problems Problem Status Onset Cellulitis of left leg Acute
--- NOTE | 2017-03-23 11:30 | SOAPPROG ---
SOAP Progress Note Assessment/Plan: Assessment: 03/23/17 11:28 Assessment: 56yo F with LLE wound POD#2 s/p debridement with STSG Wound vac intact to suction. Will remain in place until Monday May change left upper thigh dressing as needed Pain controlled Discontinued antibiotics yesterday. Will monitor off antibiotics. Appreciate hospitalists management of comorbidities Dispo: will need to remain inpatient through monday due to inability to get wound vac as an outpatient. Seen c Dr. Grajeda. S: No complaints today O: sitting on edge of bed eating breakfast No increased WOB L thigh dressing less saturated today- needs to be changed LLE wound vac intact to suction, surrounding erythema less today Objective: Vital Signs Temp Pulse Resp BP Pulse Ox 37.0 C 66 18 124/69 H 94 03/23/17 08:00 03/23/17 08:00 03/23/17 08:00 03/23/17 08:00 03/23/17 08:00 Laboratory Results 03/22/17 08:15 03/22/17 08:15 03/22/17 03/23/17 03/24/17 05:59 05:59 05:59 Intake Total 2180 1750 Output Total 845 7640 Balance 1335 -1100 ICD10 Worksheet Patient Problems: Problems Problem Status Onset Cellulitis of left leg Acute
--- NOTE | 2017-03-23 11:30 | SOAPPROG ---
SOAP Progress Note Assessment/Plan: Assessment: 03/23/17 11:28 Assessment: 56yo F with LLE wound POD#2 s/p debridement with STSG Wound vac intact to suction. Will remain in place until Monday May change left upper thigh dressing as needed Pain controlled Discontinued antibiotics yesterday. Will monitor off antibiotics. Appreciate hospitalists management of comorbidities Dispo: will need to remain inpatient through monday due to inability to get wound vac as an outpatient. Seen c Dr. Grajeda. S: No complaints today O: sitting on edge of bed eating breakfast No increased WOB L thigh dressing less saturated today- needs to be changed LLE wound vac intact to suction, surrounding erythema less today Objective: Vital Signs Temp Pulse Resp BP Pulse Ox 37.0 C 66 18 124/69 H 94 03/23/17 08:00 03/23/17 08:00 03/23/17 08:00 03/23/17 08:00 03/23/17 08:00 Laboratory Results 03/22/17 08:15 03/22/17 08:15 03/22/17 03/23/17 03/24/17 05:59 05:59 05:59 Intake Total 2180 1750 Output Total 847 2330 Balance 1335 -1100 ICD10 Worksheet Patient Problems: Problems Problem Status Onset Cellulitis of left leg Acute
[2017-03-23] MEDS: ACETAMINOPHEN 500 MG TAB PO SCH ×2 (15:17→21:12)
--- NOTE | 2017-03-23 15:42 | ASMTCMCOM ---
CM Note CM Note Notes: ULTC 100 approved and PASRR from [facility] non triggering. Still planning to d/c Pt. on Monday or beginning of next week due to waiting to d/c wound vac. Pt. plans to go to [facility] Medicaid long-term stay. SWer still waiting for official acceptance from [facility], [facility], or [facility]. Today SWer spoke w/ Gibson at again and he still could not commit to admission or denial. Monica from [facility] plans to visit Pt. at [facility] today or tomorrow. SWer let Pt. know about Monica's visit. SWer coordinated w/ Officer Amado C: who tried to retrieve Pt's backpack from her campsite today. Officer Amado thinks he found Pt's campsite, but did not locate backpack. Perhaps a friend is keeping it for Pt. Pt. optimistic about bag. Officer Amado said that once Pt. was admitted to [facility]TC that he would take her out to try to find it again. Gave SWer permission to give Pt. his business card w/ cell phone. Current plan: D/c to [facility] Medicaid long-term stay. Please notify Lydia at [facility] or when Pt. has a long-term plan for d/c. Date Signed: 03/23/2017 03:42 PM Electronically Signed By:Radha Ho LCSW
--- NOTE | 2017-03-23 15:42 | ASMTCMCOM ---
CM Note CM Note Notes: ULTC 100 approved and PASRR from [facility] non triggering. Still planning to d/c Pt. on Monday or beginning of next week due to waiting to d/c wound vac. Pt. plans to go to [facility] Medicaid custodial stay. SWer still waiting for official acceptance from [facility], [facility], or [facility]. Today SWer spoke w/ Gibson at again and he still could not commit to admission or denial. Monica from [facility] plans to visit Pt. at [facility] today or tomorrow. SWer let Pt. know about Monica's visit. SWer coordinated w/ Officer Amado C: who tried to retrieve Pt's backpack from her campsite today. Officer Amado thinks he found Pt's campsite, but did not locate backpack. Perhaps a friend is keeping it for Pt. Pt. optimistic about bag. Officer Amado said that once Pt. was admitted to LTC that he would take her out to try to find it again. Gave SWer permission to give Pt. his business card w/ cell phone. Current plan: D/c to [facility] Medicaid custodial stay. Please notify Lydia at [facility] or when Pt. has a custodial plan for d/c. Date Signed: 03/23/2017 03:42 PM Electronically Signed By:Radha Ho LCSW
--- NOTE | 2017-03-23 15:42 | ASMTCMCOM ---
CM Note CM Note Notes: [facility] 100 approved and PASRR from [facility] non triggering. Still planning to d/c Pt. on Monday or beginning of next week due to waiting to d/c wound vac. Pt. plans to go to LTC Medicaid penitentiary stay. SWer still waiting for official acceptance from [facility], or [facility]. Today SWer spoke w/ Gibson at again and he still could not commit to admission or denial. Monica from [facility] plans to visit Pt. at [facility] today or tomorrow. SWer let Pt. know about Monica's visit. SWer coordinated w/ Officer Amado C: who tried to retrieve Pt's backpack from her campsite today. Officer Amado thinks he found Pt's campsite, but did not locate backpack. Perhaps a friend is keeping it for Pt. Pt. optimistic about bag. Officer Amado said that once Pt. was admitted to LTC that he would take her out to try to find it again. Gave SWer permission to give Pt. his business card w/ cell phone. Current plan: D/c to LTC Medicaid penitentiary stay. Please notify Lydia at [facility] or when Pt. has a penitentiary plan for d/c. Date Signed: 03/23/2017 03:42 PM Electronically Signed By:Radha Ho LCSW
[2017-03-24] MEDS: oxyCODONE IR 5 MG TAB PO PRN ×5 (02:42→19:54)
[2017-03-24] MEDS: LORazepam 0.5 MG TAB PO PRN ×2 (03:26→21:09)
[2017-03-24] MEDS: GABAPENTIN 400 MG CAP PO SCH ×3 (08:10→21:10)
[2017-03-24] MEDS: ENOXAPARIN 40 MG/0.4 ML SYR SC SCH (08:10)
[2017-03-24] MEDS: POLYETHYLENE GLYCOL 3350 17 GM PKT PO SCH (08:10)
[2017-03-24] MEDS: MULTIVITAMINS 1 EACH TAB PO SCH (08:10)
[2017-03-24] MEDS: SENNOSIDES/DOCUSATE SODIUM TAB PO SCH ×2 (08:11→19:55)
[2017-03-24] MEDS: ACETAMINOPHEN 500 MG TAB PO SCH ×3 (08:11→21:09)
--- NOTE | 2017-03-24 08:30 | HOSPPROG ---
Hospitalist Progress Note Assessment/Plan: 56y female with c/o leg pain. #LLE cellulitis/ MSSA Cefazolin dc wound vac place s/p I & D with skin graft placement on 03/21/2017 #Pain due to recent surgery scheduled Tylenol and increased dose of oxy IR dc iv Dilaudid #Hypokalemia replace #Tobacco abuse education/nicotine patch not ordered/doing well without #delirium resolved #Tachy none further #Hx of asthma stable #Homelessness Elaine is concerned about her backpack/has her certificate located there #DVT prophylaxis : LMWh #Plan: dc Monday to SNF Subjective: Elaine is feeling well today. No complaints. Objective: Vital Signs Temp Pulse Resp BP Pulse Ox 36.8 C 72 18 143/69 H 90 L 03/24/17 07:32 03/24/17 07:32 03/24/17 07:32 03/24/17 07:32 03/24/17 07:32 Laboratory Results 03/22/17 08:15 03/22/17 08:15 03/23/17 03/24/17 03/25/17 05:59 05:59 05:59 Intake Total 1750 0 Output Total 2850 1200 Balance -1100 -1200 - Physical Exam Constitutional: chronically ill appearing Eyes: PERRL Ears, Nose, Mouth, Throat: hearing normal Respiratory: no respiratory distress Gastrointestinal: normoactive bowel sounds Skin: warm, other (left upper thigh with skin graft host site/ dressing in place / wound vac in left tatum) Musculoskeletal: generalized weakness Neurologic: AAOx3 Psychiatric: interacting appropriately, not anxious ICD10 Worksheet Patient Problems: Problems Problem Status Onset Cellulitis of left leg Acute
--- NOTE | 2017-03-24 11:15 | PCMIDPN ---
Assessment/Plan: 1. Left lower extremity cellulitis/myositis secondary to MSSA status post multiple debridements with wound VAC in place: The patient has finished her course of intravenous antibiotics. At this point in time, the wound appears stable. Will continue to follow peripherally. Subjective: No complaints. Very hungry. No diarrhea. Objective: Afebrile Status post treatment with cefazolin Vital Signs Temp Pulse Resp BP Pulse Ox 36.9 C 69 20 143/68 H 89 L 03/24/17 11:03 03/24/17 11:03 03/24/17 11:03 03/24/17 11:03 03/24/17 11:03 Laboratory Results 03/22/17 08:15 03/22/17 08:15 03/23/17 03/24/17 03/25/17 05:59 05:59 05:59 Intake Total 1750 0 Output Total 2850 1200 Balance -1100 -1200 C-Reactive Protein 78.7 mg/L (<10.0) H 03/14/17 00:45 - Physical Exam General Appearance: alert, no apparent distress Extremities: other (PICC line right upper extremity looks fine. Left lower extremity with extensive wound VAC in place. Some surrounding pinkish erythema that appears appropriate given extensive debridements. No obvious cellulitis. Minimal tenderness around the VAC. No blistering or bullae.) ICD10 Worksheet Patient Problems: Problems Problem Status Onset Cellulitis of left leg Acute
[2017-03-24] MEDS: CALCIUM CARBONATE 500 MG CHEWABLE TAB PO PRN ×2 (11:50→16:06)
--- NOTE | 2017-03-24 13:24 | SOAPPROG ---
SOAP Progress Note Assessment/Plan: Assessment: 56yo F with LLE wound POD#3 s/p debridement with STSG Wound vac intact to suction. Will remain in place until Monday Change left upper thigh dressing as needed Pain controlled IV antibiotics Appreciate hospitalists management of comorbidities Dispo: will need to remain inpatient through monday due to inability to get wound vac as an outpatient. S: No complaints today. O: sitting on edge of bed, about to work with PT, NAD No increased WOB L thigh dressing with some staining LLE wound vac intact to suction, Min surrounding erythema Objective: Vital Signs Temp Pulse Resp BP Pulse Ox 36.9 C 69 20 143/68 H 89 L 03/24/17 11:03 03/24/17 11:03 03/24/17 11:03 03/24/17 11:03 03/24/17 11:03 Laboratory Results 03/22/17 08:15 03/22/17 08:15 03/23/17 03/24/17 03/25/17 05:59 05:59 05:59 Intake Total 1750 0 Output Total 2850 1200 Balance -1100 -1200 ICD10 Worksheet Patient Problems: Problems Problem Status Onset Cellulitis of left leg Acute
[2017-03-24] MEDS: NICOTINE 21 MG/24 HR PATCH TD SCH (15:15)
--- NOTE | 2017-03-24 16:10 | ASMTCMCOM ---
CM Note CM Note Notes: Ted followed-up numerous times w/ Gibson at [place] today about admitting Pt. to LTC there. After several calls, Gibson states that [place] approves Pt. to come there for LTC Medicaid stay. Pt. very pleased. Ted also provided resource information for Pt. today on how to get consult for potential shoulder surgery at [facility] with her Medicaid insurance. Gave printout to Pt. w/ phone numbers at [facility]. Called [facility] and they confirmed Pt. could get consultation and surgery with Medicaid there. Pt. must get referral from primary care physician. Pt. plans to go to [facility] for this. At bedside RN's request, Ted also worked w/ Pt. who is now amenable to getting a nicotine patch. Having major smoking cravings, but Pt. not allowed to go out to smoke due to [facility] rules. Discussed this with hospitalist and RN. Pt. now getting nicotine patch. Friend Marivel visiting and plans to help Pt. look for her missing backpack. Pt. confirmed she still has Officer Amado' phone number should she need his help to locate the backpack. Current plan: Pt. to d/c to [place] LTC stay at the earliest on Monday. Please let Lydia Manning at [facility] know where Pt. goes on day of d/c so that she can send approval to [place]. Date Signed: 03/24/2017 04:09 PM Electronically Signed By:Radha Ho LCSW
--- NOTE | 2017-03-24 16:10 | ASMTCMCOM ---
CM Note CM Note Notes: Ted followed-up numerous times w/ Gibson at [place] today about admitting Pt. to LTC there. After several calls, Gibson states that [place] approves Pt. to come there for LTC Medicaid stay. Pt. very pleased. Ted also provided resource information for Pt. today on how to get consult for potential shoulder surgery at [facility] with her Medicaid insurance. Gave printout to Pt. w/ phone numbers at [facility]. Called [facility] and they confirmed Pt. could get consultation and surgery with Medicaid there. Pt. must get referral from primary care physician. Pt. plans to go to [facility] for this. At bedside RN's request, Ted also worked w/ Pt. who is now amenable to getting a nicotine patch. Having major smoking cravings, but Pt. not allowed to go out to smoke due to [facility] rules. Discussed this with hospitalist and RN. Pt. now getting nicotine patch. Friend Marivel visiting and plans to help Pt. look for her missing backpack. Pt. confirmed she still has Officer Amado' phone number should she need his help to locate the backpack. Current plan: Pt. to d/c to [place] LTC stay at the earliest on Monday. Please let Lydia Manning at [facility] know where Pt. goes on day of d/c so that she can send approval to [place]. Date Signed: 03/24/2017 04:09 PM Electronically Signed By:Radha Ho LCSW
--- NOTE | 2017-03-24 16:10 | ASMTCMCOM ---
CM Note CM Note Notes: Ted followed-up numerous times w/ Gibson at [place] today about admitting Pt. to LTC there. After several calls, Gibson states that [place] approves Pt. to come there for LTC Medicaid stay. Pt. very pleased. Ted also provided resource information for Pt. today on how to get consult for potential shoulder surgery at [facility] with her Medicaid insurance. Gave printout to Pt. w/ phone numbers at [facility]. Called [facility] and they confirmed Pt. could get consultation and surgery with Medicaid there. Pt. must get referral from primary care physician. Pt. plans to go to [facility] for this. At bedside RN's request, Ted also worked w/ Pt. who is now amenable to getting a nicotine patch. Having major smoking cravings, but Pt. not allowed to go out to smoke due to [facility] rules. Discussed this with hospitalist and RN. Pt. now getting nicotine patch. Friend Marivel visiting and plans to help Pt. look for her missing backpack. Pt. confirmed she still has Officer Amado' phone number should she need his help to locate the backpack. Current plan: Pt. to d/c to [place] LTC stay at the earliest on Monday. Please let Lydia Manning at [facility] know where Pt. goes on day of d/c so that she can send approval to [place]. Date Signed: 03/24/2017 04:09 PM Electronically Signed By:Radha Ho LCSW
[2017-03-25] MEDS: oxyCODONE IR 5 MG TAB PO PRN ×5 (02:11→20:18)
[2017-03-25] MEDS: NICOTINE 21 MG/24 HR PATCH TD SCH (09:47)
[2017-03-25] MEDS: POLYETHYLENE GLYCOL 3350 17 GM PKT PO SCH (09:47)
[2017-03-25] MEDS: ENOXAPARIN 40 MG/0.4 ML SYR SC SCH (09:47)
[2017-03-25] MEDS: SENNOSIDES/DOCUSATE SODIUM TAB PO SCH ×2 (09:47→20:18)
[2017-03-25] MEDS: GABAPENTIN 400 MG CAP PO SCH ×3 (09:47→21:54)
[2017-03-25] MEDS: ACETAMINOPHEN 500 MG TAB PO SCH ×3 (09:48→21:54)
[2017-03-25] MEDS: MULTIVITAMINS 1 EACH TAB PO SCH (09:48)
--- NOTE | 2017-03-25 09:53 | HOSPPROG ---
Hospitalist Progress Note Assessment/Plan: 56y female with c/o leg pain. #LLE cellulitis/ MSSA Cefazolin dc wound vac place s/p I & D with skin graft placement on 03/21/2017 #Pain due to recent surgery scheduled Tylenol and increased dose of oxy IR dc iv Dilaudid #Hypokalemia replace #Tobacco abuse nicotine patch provided asking frequently to go smoke she understands policy at the hospital #delirium resolved #Tachy none further #Hx of asthma stable #Homelessness Elaine is concerned about her backpack/has her certificate located there #DVT prophylaxis : LMWh #Plan: dc Monday to SNF / [place] Subjective: Elaine has no c/o pain/ her left leg is itching. Wants a cigarette. Objective: Vital Signs Temp Pulse Resp BP Pulse Ox 36.8 C 80 16 139/91 H 91 L 03/25/17 07:59 03/25/17 07:59 03/25/17 07:59 03/25/17 07:59 03/25/17 07:59 Laboratory Results 03/22/17 08:15 03/22/17 08:15 03/24/17 03/25/17 03/26/17 05:59 05:59 04:59 Intake Total 0 550 Output Total 1200 Balance -1200 550 - Physical Exam Constitutional: not in pain, chronically ill appearing Eyes: PERRL Ears, Nose, Mouth, Throat: hearing normal Respiratory: no respiratory distress Gastrointestinal: normoactive bowel sounds Skin: warm, other (left upper thigh area w dressing/ left lower ext w wound vac) Musculoskeletal: generalized weakness Neurologic: AAOx3 Psychiatric: interacting appropriately, not anxious ICD10 Worksheet Patient Problems: Problems Problem Status Onset Cellulitis of left leg Acute
[2017-03-25] MEDS: CALCIUM CARBONATE 500 MG CHEWABLE TAB PO PRN (11:20)
[2017-03-26] MEDS: oxyCODONE IR 5 MG TAB PO PRN ×8 (00:07→23:03)
[2017-03-26] MEDS: ACETAMINOPHEN 500 MG TAB PO SCH ×3 (07:49→23:03)
[2017-03-26] MEDS: GABAPENTIN 400 MG CAP PO SCH ×3 (07:49→20:02)
[2017-03-26] MEDS: SENNOSIDES/DOCUSATE SODIUM TAB PO SCH ×2 (07:50→20:02)
[2017-03-26] MEDS: MULTIVITAMINS 1 EACH TAB PO SCH (07:50)
[2017-03-26] MEDS: NICOTINE 21 MG/24 HR PATCH TD SCH (07:51)
[2017-03-26] MEDS: ENOXAPARIN 40 MG/0.4 ML SYR SC SCH (07:52)
[2017-03-26] MEDS: POLYETHYLENE GLYCOL 3350 17 GM PKT PO SCH (07:58)
--- NOTE | 2017-03-26 09:29 | HOSPPROG ---
Hospitalist Progress Note Assessment/Plan: 56y female with c/o leg pain. #LLE cellulitis/ MSSA Cefazolin dc wound vac place s/p I & D with skin graft placement on 03/21/2017 has some itching due to the dressings/ skin healing #Pain due to recent surgery scheduled Tylenol and oxy IR #Hypokalemia replace #Tobacco abuse nicotine patch provided asking frequently to go smoke she understands policy at the hospital #delirium resolved #Tachy none further #Hx of asthma stable #Homelessness #DVT prophylaxis : LMWh #Plan: dc Monday to SNF / [place] Subjective: Elaine is anxious about getting discharged tomorrow. Objective: Vital Signs Temp Pulse Resp BP Pulse Ox 36.9 C 70 20 164/83 H 90 L 03/26/17 07:32 03/26/17 07:32 03/26/17 07:32 03/26/17 07:32 03/26/17 07:32 Laboratory Results 03/22/17 08:15 03/22/17 08:15 03/25/17 03/26/17 03/27/17 06:59 05:59 05:59 Intake Total Output Total Balance - Physical Exam Constitutional: not in pain, chronically ill appearing Eyes: PERRL Ears, Nose, Mouth, Throat: hearing normal Respiratory: no respiratory distress Skin: warm Musculoskeletal: full muscle strength Neurologic: AAOx3 Psychiatric: interacting appropriately ICD10 Worksheet Patient Problems: Problems Problem Status Onset Cellulitis of left leg Acute
[2017-03-26] MEDS: FAMOTIDINE 20 MG TAB PO SCH ×2 (11:18→20:03)
--- NOTE | 2017-03-26 17:55 | ASMTCMCOM ---
CM Note CM Note Notes: Reviewed chart for discharge plan, pt's progress. Per MD notes, pt will likely be ready for discharge on 03/27/17. [facility] () has accepted pt. LVM for Gibson at to provide update; awaiting call back. Fax received from Gibson at for release of information to [facility] and [facility]. Met w/ pt to discuss discharge plans. Pt signed release; copy provided to pt; copy placed in chart and faxed back to Gibson at [place]. CM to call Lydia Manning at [facility] on day of discharge to alert of pt's departure and discharge location. CM will cont to follow. Current Discharge Plan: [facility] Date Signed: 03/26/2017 05:54 PM Electronically Signed By:Pearl Raphael RN
--- NOTE | 2017-03-26 17:55 | ASMTCMCOM ---
CM Note CM Note Notes: Reviewed chart for discharge plan, pt's progress. Per MD notes, pt will likely be ready for discharge on 03/27/17. [facility] () has accepted pt. LVM for Gibson at to provide update; awaiting call back. Fax received from Gibson at for release of information to [facility] and [facility]. Met w/ pt to discuss discharge plans. Pt signed release; copy provided to pt; copy placed in chart and faxed back to Gibson at [place]. CM to call Lydia Manning at [facility] on day of discharge to alert of pt's departure and discharge location. CM will cont to follow. Current Discharge Plan: [facility] Date Signed: 03/26/2017 05:54 PM Electronically Signed By:Pearl Raphael RN
--- NOTE | 2017-03-26 17:55 | ASMTCMCOM ---
CM Note CM Note Notes: Reviewed chart for discharge plan, pt's progress. Per MD notes, pt will likely be ready for discharge on 03/27/17. [facility] () has accepted pt. LVM for Gibson at to provide update; awaiting call back. Fax received from Gibson at for release of information to [facility] and [facility]. Met w/ pt to discuss discharge plans. Pt signed release; copy provided to pt; copy placed in chart and faxed back to Gibson at [place]. CM to call Lydia Manning at [facility] on day of discharge to alert of pt's departure and discharge location. CM will cont to follow. Current Discharge Plan: [facility] Date Signed: 03/26/2017 05:54 PM Electronically Signed By:Pearl Raphael RN
[2017-03-26] MEDS: LORazepam 0.5 MG TAB PO PRN (20:03)
[2017-03-27] MEDS: oxyCODONE IR 5 MG TAB PO PRN ×7 (02:06→21:55)
[2017-03-27] MEDS: ACETAMINOPHEN 500 MG TAB PO SCH ×3 (08:09→21:55)
[2017-03-27] MEDS: ENOXAPARIN 40 MG/0.4 ML SYR SC SCH (08:10)
[2017-03-27] MEDS: MULTIVITAMINS 1 EACH TAB PO SCH (08:10)
[2017-03-27] MEDS: FAMOTIDINE 20 MG TAB PO SCH ×2 (08:10→19:07)
[2017-03-27] MEDS: NICOTINE 21 MG/24 HR PATCH TD SCH (08:10)
[2017-03-27] MEDS: POLYETHYLENE GLYCOL 3350 17 GM PKT PO SCH (08:10)
[2017-03-27] MEDS: SENNOSIDES/DOCUSATE SODIUM TAB PO SCH ×2 (08:10→19:07)
[2017-03-27] MEDS: GABAPENTIN 400 MG CAP PO SCH ×3 (08:10→21:55)
--- NOTE | 2017-03-27 10:02 | HOSPPROG ---
Hospitalist Progress Note Assessment/Plan: 56y female with c/o leg pain. #LLE cellulitis/ MSSA Cefazolin dc wound vac place s/p I & D with skin graft placement on 03/21/2017 has some itching due to the dressings/ skin healing #Pain due to recent surgery scheduled Tylenol and oxy IR #Hypokalemia replace #Tobacco abuse nicotine patch provided asking frequently to go smoke she understands policy at the hospital #delirium resolved #Tachy none further #Hx of asthma stable #Homelessness #DVT prophylaxis : LMWh #Plan: dc to [facility] Subjective: Elaine is very excited about getting discharged today/ no c/o pain. Objective: Vital Signs Temp Pulse Resp BP Pulse Ox 37.1 C 75 18 171/97 H 94 03/27/17 08:00 03/27/17 08:00 03/27/17 08:00 03/27/17 08:00 03/27/17 08:00 Laboratory Results 03/22/17 08:15 03/22/17 08:15 03/26/17 03/27/17 03/28/17 05:59 05:59 05:59 Intake Total 1300 Output Total Balance 1300 - Physical Exam Constitutional: no apparent distress, not in pain, chronically ill appearing Eyes: PERRL Ears, Nose, Mouth, Throat: hearing normal Respiratory: no respiratory distress Skin: warm Musculoskeletal: generalized weakness Neurologic: AAOx3 Psychiatric: interacting appropriately, not anxious ICD10 Worksheet Patient Problems: Problems Problem Status Onset Cellulitis of left leg Acute
--- NOTE | 2017-03-27 10:12 | PDIAF ---
- Diagnosis Diagnosis: left lower ext cellulitis 2/2 MSSA s/p debridements and skin grafting Code Status: Full Code - Medication Management Discharge Medications: Medications to Continue on Transfer Gabapentin [Neurontin 400 MG (*)] 1,200 mg PO TID 03/13/17 [Last Taken 03/13/17 08:00] Acetaminophen [Tylenol ES 500 mg (*)] 1,000 mg PO TID tab 03/27/17 [Last Taken Unknown] Calcium Carbonate [Tums 500MG (*)] 500 mg PO TID PRN tab.chew 03/27/17 [Last Taken Unknown] Multivitamins [Multivitamin (*)] 1 each PO DAILY tab 03/27/17 [Last Taken Unknown] Nicotine [Nicoderm Cq 21 mg (*)] 21 mg TD DAILY patch 03/27/17 [Last Taken Unknown] Polyethylene Glycol 3350 [Miralax 17 gm (*)] 17 gm PO DAILY pkt 03/27/17 [Last Taken Unknown] Sennosides/Docusate Sodium [Senokot-S] 1 - 2 tab PO BID tab 03/27/17 [Last Taken Unknown] oxyCODONE IR [Oxycodone Ir (*)] 5 - 10 mg PO Q3HRS PRN tab 03/27/17 [Last Taken Unknown] Discharge Medications: Refer to the Discharge Home Medication list for PRN reason. PICC Care - Routine: N/A - Orders Services needed: Physical Therapy, Occupational Therapy Diet Recommendation: no restrictions on diet Diet Texture: Regular Texture Diet Wound Care Instructions: wound care: change left upper thigh donor site dressing as needed (adaptic TOUCH, ABD, tape). Change left lower extremity skin graft dressing as needed (adaptic TOUCH, fluffed 4x4s, kerlix). Do not get skin graft site or dressings wet. OK to get donor site wet. F/u in 1 week for staple removal - Follow Up Care Current Providers and Referrals: Erica Grajeda MD [Medical Doctor] - Patient,NotPresent [Primary Care Provider] -
--- NOTE | 2017-03-27 10:46 | SOAPPROG ---
SOAP Progress Note Assessment/Plan: Assessment: 56yo F with LLE wound s/p debridement with STSG Wound vac removed today. Skin graft with so far 100% take Donor site CDI Change dressings as needed Pain controlled Dispo: [facility]. F/u 1 week for staple removal S: No complaints today. nervous about being discharged O: laying in bed, comfortable, NAD No increased WOB L upper thigh donor site CDI. dressings replaced LLE wound vac removed. graft with 100% take. No e/o infection, no surrounding redness Objective: Vital Signs Temp Pulse Resp BP Pulse Ox 37.1 C 75 18 171/97 H 94 03/27/17 08:00 03/27/17 08:00 03/27/17 08:00 03/27/17 08:00 03/27/17 08:00 Laboratory Results 03/22/17 08:15 03/22/17 08:15 03/26/17 03/27/17 03/28/17 05:59 05:59 05:59 Intake Total 1300 Output Total Balance 1300 ICD10 Worksheet Patient Problems: Problems Problem Status Onset Cellulitis of left leg Acute
--- NOTE | 2017-03-27 10:59 | GDS ---
[f rep st] DISCHARGE SUMMARY DISCHARGE DIAGNOSES: 1. Left lower extremity cellulitis/myositis secondary to methicillin-sensitive Staphylococcus aureus . 2. Pain due to this. 3. Hypokalemia. 4. Tobacco abuse. 5. Delirium. 6. Tachycardia. 7. History of asthma. 8. Homelessness. CONSULTATIONS: 1. Dr. Connor Huston. 2. Dr. Bina Cho. 3. Dr. Erica Grajeda. HISTORY OF PRESENT ILLNESS: Briefly, the patient is a 56-year-old female who presented to the emerge ncy room with left lower extremity pain and redness with associated fever. A month prior to coming t o the [facility], she landed on a rock which caused an abrasion to her left knee. Her knee started to have more redness and drainage and she was admitted for further evaluation. During her stay, she was seen and evaluated by Dr. Huston with Surgical Services. He did an I and D and wound VAC placement. Throughout her stay, she had multiple wound VACs and was treated with antibiotics. She subsequentl y required a skin graft from her left upper thigh area. She continued to have a wound VAC in place t hat was discontinued today. The erythema is markedly improved. She will be discharged to [place] to continue care. HOSPITAL COURSE: 1. Left lower extremity cellulitis, myositis secondary to MSSA, status post multiple debridements an d now with skin graft in place, which was done on March 21. She was treated with cefazolin durin g her stay. The wound VAC was removed today. She will follow up with Dr. Grajeda in the outpatient tting. 2. Pain due to this. Will continue scheduled Tylenol and continue OxyIR. 3. Hypokalemia, stable. 4. Tobacco abuse. She has a nicotine patch. I suspect she will restart smoking. 5. Delirium, resolved. 6. Tachycardia, none further. 7. History of asthma, stable. 8. Homelessness. She will be going to [place]. She is very excited to have a place to live. DISCHARGE CONDITION: Stable. Blood pressure is 143/98, heart rate is 63, respiratory rate is 18, O2 sats on room air 92%, temperature is 36.6 Celsius. MEDICATIONS AT DISCHARGE: Please see the EMR. DISCHARGE INSTRUCTIONS: 1. Wound care will be written out by the surgical team services prior to discharge. 2. Follow up with Dr. Erica Grajeda for followup care. Greater than 30 minutes discharging and coordinating patient's care. /[id number]/MODL
--- NOTE | 2017-03-27 10:59 | GDS ---
[f rep st] DISCHARGE SUMMARY DISCHARGE DIAGNOSES: 1. Left lower extremity cellulitis/myositis secondary to methicillin-sensitive Staphylococcus aureus . 2. Pain due to this. 3. Hypokalemia. 4. Tobacco abuse. 5. Delirium. 6. Tachycardia. 7. History of asthma. 8. Homelessness. CONSULTATIONS: 1. Dr. Connor Huston. 2. Dr. Bina Cho. 3. Dr. Erica Grajeda. HISTORY OF PRESENT ILLNESS: Briefly, the patient is a 56-year-old female who presented to the emerge ncy room with left lower extremity pain and redness with associated fever. A month prior to coming t o [facility], she landed on a rock which caused an abrasion to her left knee. Her knee started to have more redness and drainage and she was admitted for further evaluation. During her stay, she was seen and evaluated by Dr. Huston with [facility]. He did an I and D and wound VAC placement. Throughout her stay, she had multiple wound VACs and was treated with antibiotics. She subsequentl y required a skin graft from her left upper thigh area. She continued to have a wound VAC in place t hat was discontinued today. The erythema is markedly improved. She will be discharged to [place] to continue care. HOSPITAL COURSE: 1. Left lower extremity cellulitis, myositis secondary to MSSA, status post multiple debridements an d now with skin graft in place, which was done on March 21. She was treated with cefazolin durin g her stay. The wound VAC was removed today. She will follow up with Dr. Grajeda in the outpatient tting. 2. Pain due to this. Will continue scheduled Tylenol and continue OxyIR. 3. Hypokalemia, stable. 4. Tobacco abuse. She has a nicotine patch. I suspect she will restart smoking. 5. Delirium, resolved. 6. Tachycardia, none further. 7. History of asthma, stable. 8. Homelessness. She will be going to [place]. She is very excited to have a place to live. DISCHARGE CONDITION: Stable. Blood pressure is 143/98, heart rate is 63, respiratory rate is 18, O2 sats on room air 92%, temperature is 36.6 Celsius. MEDICATIONS AT DISCHARGE: Please see the EMR. DISCHARGE INSTRUCTIONS: 1. Wound care will be written out by the surgical team services prior to discharge. 2. Follow up with Dr. Erica Grajeda for followup care. Greater than 30 minutes discharging and coordinating patient's care. /[id number]/MODL
--- NOTE | 2017-03-27 13:34 | ASMTCMCOM ---
CM Note CM Note Notes: Patient stable for discharge, going to [place], [facility] 100 done and submitted pending approval. Call to [facility] to try to expidite form. Gibson at aware. CM to follow. Orders updated via [email or web address]. CM to follow. Date Signed: 03/27/2017 01:33 PM Electronically Signed By:Lawanda Zelaya RN
--- NOTE | 2017-03-27 13:34 | ASMTCMCOM ---
CM Note CM Note Notes: Patient stable for discharge, going to [place], [facility] 100 done and submitted pending approval. Call to [employer] to try to expidite form. Gibson at aware. CM to follow. Orders updated via allscri[pts. CM to follow. Date Signed: 03/27/2017 01:33 PM Electronically Signed By:Lawanda Zelaya RN
--- NOTE | 2017-03-27 13:34 | ASMTCMCOM ---
CM Note CM Note Notes: Patient stable for discharge, going to [place], [facility] 100 done and submitted pending approval. Call to [employer] to try to expidite form. Gibson at aware. CM to follow. Orders updated via allscri[pts. CM to follow. Date Signed: 03/27/2017 01:33 PM Electronically Signed By:Lawanda Zelaya RN
--- NOTE | 2017-03-27 17:37 | ASMTCMCOM ---
CM Note CM Note Notes: DC delayed as [facility] still without [id number]. Spoke with Shelley at [facility], They will get the paperwork to tomorrow. CM to follow. Date Signed: 03/27/2017 05:36 PM Electronically Signed By:Lawanda Zelaya RN
--- NOTE | 2017-03-27 17:37 | ASMTCMCOM ---
CM Note CM Note Notes: DC delayed as [place] still without [id number]. Spoke with Shelley at [facility], They will get the paperwork to tomorrow. CM to follow. Date Signed: 03/27/2017 05:36 PM Electronically Signed By:Lawanda Zelaya RN
--- NOTE | 2017-03-27 17:37 | ASMTCMCOM ---
CM Note CM Note Notes: DC delayed as [facility] [place] still without [id number]. Spoke with Shelley at [facility], They will get the paperwork to tomorrow. CM to follow. Date Signed: 03/27/2017 05:36 PM Electronically Signed By:Lawanda Zelaya RN
[2017-03-27] MEDS: LORazepam 0.5 MG TAB PO PRN (19:07)
[2017-03-28] MEDS: oxyCODONE IR 5 MG TAB PO PRN ×4 (01:00→09:31)
[2017-03-28 07:12] VITALS: BP 169/96; PULSE 75; RESP 18; TEMP 98.1; O2SAT 94
[2017-03-28] MEDS: FAMOTIDINE 20 MG TAB PO SCH (08:18)
[2017-03-28] MEDS: SENNOSIDES/DOCUSATE SODIUM TAB PO SCH (08:18)
[2017-03-28] MEDS: GABAPENTIN 400 MG CAP PO SCH (08:18)
[2017-03-28] MEDS: ACETAMINOPHEN 500 MG TAB PO SCH (08:19)
[2017-03-28] MEDS: ENOXAPARIN 40 MG/0.4 ML SYR SC SCH (08:20)
[2017-03-28] MEDS: POLYETHYLENE GLYCOL 3350 17 GM PKT PO SCH (08:22)
[2017-03-28] MEDS: NICOTINE 21 MG/24 HR PATCH TD SCH (08:28)
[2017-03-28] MEDS: MULTIVITAMINS 1 EACH TAB PO SCH (08:28)
--- NOTE | 2017-03-28 09:27 | HOSPPROG ---
Hospitalist Progress Note Assessment/Plan: 56y female with c/o leg pain. #LLE cellulitis/ MSSA Cefazolin dc wound vac place s/p I & D with skin graft placement on 03/21/2017 has some itching due to the dressings/ skin healing further f/u with Dr Grajeda #Pain due to recent surgery scheduled Tylenol and oxy IR #Hypokalemia replace #Tobacco abuse nicotine patch provided asking frequently to go smoke she understands policy at the hospital #delirium resolved #Tachy none further #Hx of asthma stable #Homelessness #DVT prophylaxis : LMWh #Plan: dc to [place] Subjective: Elaine is upset about not getting discharged yesterday/ anxious to go and smoke. Objective: Vital Signs Temp Pulse Resp BP Pulse Ox 36.7 C 75 18 169/96 H 94 03/28/17 07:09 03/28/17 07:09 03/28/17 07:09 03/28/17 07:09 03/28/17 07:09 Laboratory Results 03/22/17 08:15 03/22/17 08:15 03/27/17 03/28/17 03/29/17 05:59 05:59 05:59 Intake Total 1300 0 Balance 1300 0 - Physical Exam Constitutional: no apparent distress, appears nourished, not in pain Eyes: PERRL Ears, Nose, Mouth, Throat: hearing normal Respiratory: no respiratory distress Skin: warm, other (left lower ext in enedina wrap) Musculoskeletal: full muscle strength Neurologic: AAOx3 Psychiatric: interacting appropriately, not anxious ICD10 Worksheet Patient Problems: Problems Problem Status Onset Cellulitis of left leg Acute
--- NOTE | 2017-03-28 16:55 | ASDISCHSUM ---
Discharge Information Plan Status:SNF Medically Cleared to Leave:03/27/2017 Discharge Date:03/28/2017 11:37 AM CM D/C Disposition:[facility] Facility ADT D/C Disposition:[facility] Facility Projected Discharge Date:03/28/2017 11:00 AM Transportation at D/C:Wheelchair Van Discharge Delay Reason: Follow-Up Date:03/28/2017 11:00 AM Discharge Slot: Final Diagnosis: Placement Information Referral Type:*Custodial/SNF Referral ID:[facility]-[id number] Provider Name:Ele Catherineulder Address 1:[address] Address 2: City:[place] Selection Factors: State:[place] Patient Contact Information Contact Name:LUCILA Relationship: Address: Home Phone: Work Phone: City: [facility] Phone: [facility] Code: Email: Financial Information Financial Class: Primary Plan Desc:[employer] Primary Plan Number:[id number] Secondary Plan Desc: Secondary Plan Number: Assessment Information [facility] Initial CM Assessment Living Arrangements What is your living Answers: Alone arrangement? Who do you live with? Type Of Residence What kind of residence do Answers: Homeless you live in? Discharge Plan Comments Coordination Status Comments Notes: Pt is a 56 y/o female admitted w/ cellulitis on her left leg. Pt currently has a wound vac. PT is recommending SNF. CM met w/ pt for dispo planning. Pt would like to go to rehab. Pt reports that she would like to stay in the [place] area and would like CM to make referrals to all [place] SNFs. CM faxed out referrals to SNF. CM completed ULTC-100 and faxed it to [facility]. CM faxed attach ULTC-100 document to [facility]. TROY to follow. Date Signed: 03/14/2017 02:26 PM Electronically Signed By:ZACK Wilkerson [facility] Progress Note CM Note CM Note Notes: CM met w/ pt for dispo planning. CM informed pt that there aren't any female beds at [facility]. Pt is agreeable to having a referral made to their sister facility, [facility] in [place]. Pt reports that it is important for her to obtain her certificate and social security card at her camp. CM sent referral to [place]. CM called Michael at [facility] and obtained the property condition assessor's name and phone number. CM left a msg for Lydia Manning ([facility] randyanju), P#: [phone]. CM to follow. Date Signed: 03/15/2017 02:38 PM Electronically Signed By:ZACK Wilkerson LACE ASHISH Length of stay for Answers: 4-6 days current admission Acuity / Level of Care Answers: Was the patient admitted to hospital via the emergency department? Yes: Emergency dept visits in Answers: 3 last 6 months Score: 10 Date Signed: 03/16/2017 04:35 PM Electronically Signed By:Radha Ho LCSW [facility] TROY Progress Note CM Note CM Note Notes: Pt. was approved by Lydia Manning at [facility] [phone] to go to Medicaid LT alf stay. [facility] PASRR is complete and non-triggering. Please call [facility] when alf is identified. They will send approval to facility. Today Ted worked on Pt's admission to LT Medicaid facility. Gibson at [facility] not sure if MV can accept Pt. due to her possibly having a wound vac at d/c. Please see Allscripts for latest referral information. Ted went to update Pt. about plan today. Pt. quite sleepy. Might need to touch base with her again if she was too sleepy to understand. Pt. was grateful about plan to go to a alf. CM to follow for d/c POC. Date Signed: 03/17/2017 05:17 PM Electronically Signed By:Radha Ho LCSW [facility] CM Progress Note CM Note CM Note Notes: Pt is scheduled for wound vac change tomorrow. CM still researching potential SNF to take pt with wound vac. Date Signed: 03/19/2017 02:53 PM Electronically Signed By:MARIN Rousseau [facility] Progress Note CM Note CM Note Notes: Patient given pants as hers are dirty and she does not have clothes here to d/c in. TROY continues to research SNF placement with a wound vac. Date Signed: 03/20/2017 04:00 PM Electronically Signed By:Shania Limon LCSW [facility] Progress Note TROY Note TROY Note Notes: Spoke with [facility] regarding patient being placed with them. Gibson states they are interested and can take her but she cannot come with a wound vac. ( with Medicaid only he states it is not cost effective for them). Spoke with patient's nurse, Radha who is uncertain how much longer patient will need the wound vac. Radha found out Dr. Grajeda wishes current wound vac dressing to remain in place until 2016. Radha does not know how much longer patient will need to be in the hospital but says there is a chance she may need another week here. TROY will pursue another facility that may take her with a wound vac but keep [facility] on the list should the dates and removal of the wound vac work out before d/c. Gibson will need medical updates on the patient on Monday. TROY will follow. Date Signed: 03/21/2017 03:42 PM Electronically Signed By:Shania Limon LCSW [facility] CM Progress Note TROY Note TROY Note Notes: Today hospitalist confirmed w/ surgeon that Pt. will need wound vac on at least until Monday03/27/2017. Possible d/c that day or soon thereafter. Plan is to keep Pt. at [facility] until then. Ted called Gibson at [facility] to check in about d/c plan. Gibson will consult with [facility] team today about Pt.'s admission without wound vac for early next week. Await Gibson's return call. SWer met w/ Pt. in room. Pt. agrees w/ d/c plan. Pt. very focused on getting her backpack back from homeless campsite. Pt. states she has her very important documentation in it - to include her social security card. Pt. would like to have a 'pass' to leave hospital to get it, but SWer explained why that was not possible. Pt. agreed for SWer to call the [facility] Homeless Outreach Team (HOT) (Officer John Fischer and Officer Ale Dorado) to see if they could shrimp picker the backpack. Pt. will need to describe location to officers. Tried to call officer Estrada's cell phone, but it went straight to voicemail. Await officer's return call. Pt. states she "need[s] to get shoulder surgery". We discussed dedicated intermodal truck driver plans and that we will address her concerns and discuss pre-surgery appointment for shoulder before d/c. Pt. states she has a CD disc showing her shoulder injuries in her backpack. Current plan: Await acceptance from [facility] alf stay. Anticipate d/c next Monday or soon thereafter. Date Signed: 03/22/2017 03:17 PM Electronically Signed By:Radha Ho LCSW [facility] Progress Note CM Note CM Note Notes: ULTC 100 approved and PASRR from [facility] non triggering. Still planning to d/c Pt. on Monday or beginning of next week due to waiting to d/c wound vac. Pt. plans to go to [facility] Medicaid alf stay. SWer still waiting for official acceptance from [facility], [facility], or [facility]. Today Amitar spoke w/ Gibson at again and he still could not commit to admission or denial. Monica from [employer] plans to visit Pt. at [facility] today or tomorrow. SWer let Pt. know about Monica's visit. Amitar coordinated w/ Officer Amado Monroe: who tried to retrieve Pt's backpack from her campsite today. Officer Amado thinks he found Pt's campsite, but did not locate backpack. Perhaps a friend is keeping it for Pt. Pt. optimistic about bag. Officer Amado said that once Pt. was admitted to LTC that he would take her out to try to find it again. Gave SWer permission to give Pt. his business card w/ cell phone. Current plan: D/c to [facility] Medicaid alf stay. Please notify Lydia at [facility] or when Pt. has a alf plan for d/c. Date Signed: 03/23/2017 03:42 PM Electronically Signed By:Radha Ho LCSW [facility] CM Progress Note CM Note CM Note Notes: Ted followed-up numerous times w/ Gibson at [facility] today about admitting Pt. to LTC there. After several calls, Gibson states that [facility] approves Pt. to come there for LTC Medicaid stay. Pt. very pleased. Ted also provided resource information for Pt. today on how to get consult for potential shoulder surgery at [facility] with her Medicaid insurance. Gave printout to Pt. w/ phone numbers at [facility]. Called [facility] and they confirmed Pt. could get consultation and surgery with Medicaid there. Pt. must get referral from primary care physician. Pt. plans to go to [facility] for this. At bedside RN's request, Tde also worked w/ Pt. who is now amenable to getting a nicotine patch. Having major smoking cravings, but Pt. not allowed to go out to smoke due to [facility] rules. Discussed this with hospitalist and RN. Pt. now getting nicotine patch. Friend Marivel visiting and plans to help Pt. look for her missing backpack. Pt. confirmed she still has Officer Amado' phone number should she need his help to locate the backpack. Current plan: Pt. to d/c to [facility] stay at the earliest on Monday. Please let Lydia Manning at [facility] know where Pt. goes on day of d/c so that she can send approval to [facility]. Date Signed: 03/24/2017 04:09 PM Electronically Signed By:Radha Ho LCSW [facility] CM Progress Note CM Note CM Note Notes: Reviewed chart for discharge plan, pt's progress. Per MD notes, pt will likely be ready for discharge on Mon03/27/17. [facility] () has accepted pt. LVM for Gibson at to provide update; awaiting call back. Fax received from Gibson at for release of information to [facility] and [facility]. Met w/ pt to discuss discharge plans. Pt signed release; copy provided to pt; copy placed in chart and faxed back to Gibson at [facility]. CM to call Lydia Manning at [facility] on day of discharge to alert of pt's departure and discharge location. CM will cont to follow. Current Discharge Plan: [facility] Date Signed: 03/26/2017 05:54 PM Electronically Signed By:Pearl Raphael RN [facility] CM Progress Note CM Note CM Note Notes: Patient stable for discharge, going to [place], [facility] 100 done and submitted pending approval. Call to [employer] to try to expidite formEdie Arreaga at aware. CM to follow. Orders updated via allscri[pts. CM to follow. Date Signed: 03/27/2017 01:33 PM Electronically Signed By:Lawanda Zelaya RN [facility] CM Progress Note CM Note CM Note Notes: DC delayed as [facility] still without [id number]. Spoke with Shelley at [facility], They will get the paperwork to tomorrow. CM to follow. Date Signed: 03/27/2017 05:36 PM Electronically Signed By:Lawanda Zelaya RN Intervention Information
--- NOTE | 2017-03-28 16:55 | ASDISCHSUM ---
Discharge Information Plan Status:SNF Medically Cleared to Leave:03/27/2017 Discharge Date:03/28/2017 11:37 AM CM D/C Disposition:Correction Facility ADT D/C Disposition:Correction Facility Projected Discharge Date:03/28/2017 11:00 AM Transportation at D/C:Wheelchair Van Discharge Delay Reason: Follow-Up Date:03/28/2017 11:00 AM Discharge Slot: Final Diagnosis: Placement Information Referral Type:*Prison/SNF Referral ID:[id number] Provider Name:Ele Catherineulder Address 1:[address] Address 2: City:[place] Selection Factors: State:[place] Patient Contact Information Contact Name:LUCILA Relationship: Address: Home Phone: Work Phone: City: [facility] Central Phone: [facility] Code: Email: Financial Information Financial Class: Primary Plan Desc:MED[place] Primary Plan Number:[id number] Secondary Plan Desc: Secondary Plan Number: Assessment Information [facility] Initial CM Assessment Living Arrangements What is your living Answers: Alone arrangement? Who do you live with? Type Of Residence What kind of residence do Answers: Homeless you live in? Discharge Plan Comments Coordination Status Comments Notes: Pt is a 56 y/o female admitted w/ cellulitis on her left leg. Pt currently has a wound vac. PT is recommending SNF. CM met w/ pt for dispo planning. Pt would like to go to rehab. Pt reports that she would like to stay in the [place] area and would like CM to make referrals to all [place] SNFs. CM faxed out referrals to SNF. CM completed ULTC-100 and faxed it to [facility]. CM faxed attach ULTC-100 document to [facility]. TROY to follow. Date Signed: 03/14/2017 02:26 PM Electronically Signed By:ZACK Wilkerson [facility] Progress Note CM Note CM Note Notes: CM met w/ pt for dispo planning. CM informed pt that there aren't any female beds at [facility]. Pt is agreeable to having a referral made to their sister facility, [facility] in [place]. Pt reports that it is important for her to obtain her certificate and [place] card [place]. CM sent referral to [place]. CM called Michael at [facility] and obtained the sales representative metals's name and phone number. CM left a msg for Lydia Manning ([facility] randyanju), P#: [phone]. CM to follow. Date Signed: 03/15/2017 02:38 PM Electronically Signed By:ZACK Wilkerson LACE ASHISH Length of stay for Answers: 4-6 days current admission Acuity / Level of Care Answers: Was the patient admitted to hospital via the emergency department? Yes: Emergency dept visits in Answers: 3 last 6 months Score: 10 Date Signed: 03/16/2017 04:35 PM Electronically Signed By:Radha Ho LCSW [facility] TROY Progress Note CM Note CM Note Notes: Pt. was approved by Lydia Manning at [facility] [phone] to go to Medicaid LT halfway stay. [facility] PASRR is complete and non-triggering. Please call [facility] when halfway is identified. They will send approval to facility. Today Ted worked on Pt's admission to LT Medicaid facility. Gibson at [facility] not sure if [facility] can accept Pt. due to her possibly having a wound vac at d/c. Please see Allscripts for latest referral information. Ted went to update Pt. about plan today. Pt. quite sleepy. Might need to touch base with her again if she was too sleepy to understand. Pt. was grateful about plan to go to a halfway. CM to follow for d/c POC. Date Signed: 03/17/2017 05:17 PM Electronically Signed By:Radha Ho LCSW [facility] CM Progress Note CM Note CM Note Notes: Pt is scheduled for wound vac change tomorrow. CM still researching potential SNF to take pt with wound vac. Date Signed: 03/19/2017 02:53 PM Electronically Signed By:MARIN Rousseau [facility] TR[facility] Progress Note CM Note CM Note Notes: Patient given pants as hers are dirty and she does not have clothes here to d/c in. TROY continues to research SNF placement with a wound vac. Date Signed: 03/20/2017 04:00 PM Electronically Signed By:Shania Limon LCSW [facility] TROY Progress Note TROY Note TROY Note Notes: Spoke with [facility] regarding patient being placed with them. Gibson states they are interested and can take her but she cannot come with a wound vac. ( with Medicaid only he states it is not cost effective for them). Spoke with patient's nurse, Radha who is uncertain how much longer patient will need the wound vac. Radha found out Dr. Grajeda wishes current wound vac dressing to remain in place until 2016. Radha does not know how much longer patient will need to be in the hospital but says there is a chance she may need another week here. TROY will pursue another facility that may take her with a wound vac but keep [facility] on the list should the dates and removal of the wound vac work out before d/c. Gibson will need medical updates on the patient on Monday. TROY will follow. Date Signed: 03/21/2017 03:42 PM Electronically Signed By:Shania Limon LCSW [facility] CM Progress Note TROY Note TROY Note Notes: Today hospitalist confirmed w/ surgeon that Pt. will need wound vac on at least until Monday03/27/2017. Possible d/c that day or soon thereafter. Plan is to keep Pt. at [facility] until then. Ted called Gibson at [facility] to check in about d/c plan. Gibson will consult with MV team today about Pt.'s admission without wound vac for early next week. Await Gibson's return call. SWer met w/ Pt. in room. Pt. agrees w/ d/c plan. Pt. very focused on getting her backpack back from homeless campsite. Pt. states she has her very important documentation in it - to include her social security card. Pt. would like to have a 'pass' to leave hospital to get it, but SWer explained why that was not possible. Pt. agreed for SWer to call the [facility] Homeless Outreach Team (HOT) (Officer John Fischer and Officer Ale Dorado) to see if they could scrap picker the backpack. Pt. will need to describe location to officers. Tried to call officer Estrada's cell phone, but it went straight to voicemail. Await officer's return call. Pt. states she "need[s] to get shoulder surgery". We discussed technician terminal and repeater plans and that we will address her concerns and discuss pre-surgery appointment for shoulder before d/c. Pt. states she has a CD disc showing her shoulder injuries in her backpack. Current plan: Await acceptance from [facility] halfway stay. Anticipate d/c next Monday or soon thereafter. Date Signed: 03/22/2017 03:17 PM Electronically Signed By:Radha Ho LCSW [facility] TROY Progress Note CM Note CM Note Notes: ULTC 100 approved and PASRR from [facility] non triggering. Still planning to d/c Pt. on Monday or beginning of next week due to waiting to d/c wound vac. Pt. plans to go [facility] Medicaid halfway stay. SWer still waiting for official acceptance from [facility], [facility], or [place]. Today Amitar spoke w/ Gibson at again and he still could not commit to admission or denial. Monica from [employer] plans to visit Pt. at [facility] today or tomorrow. SWer let Pt. know about Monica's visit. Amitar coordinated w/ Officer Amado Monroe: who tried to retrieve Pt's backpack from her campsite today. Officer Amado thinks he found Pt's campsite, but did not locate backpack. Perhaps a friend is keeping it for Pt. Pt. optimistic about bag. Officer Amado said that once Pt. was admitted to LTC that he would take her out to try to find it again. Gave SWer permission to give Pt. his business card w/ cell phone. Current plan: D/c to C Medicaid halfway stay. Please notify Lydia at [facility] or when Pt. has a halfway plan for d/c. Date Signed: 03/23/2017 03:42 PM Electronically Signed By:Radha Ho LCSW [facility] CM Progress Note CM Note CM Note Notes: Ted followed-up numerous times w/ Gibson at [facility] today about admitting Pt. to LTC there. After several calls, Gibson states that [facility] approves Pt. to come there for LTC Medicaid stay. Pt. very pleased. Ted also provided resource information for Pt. today on how to get consult for potential shoulder surgery at [facility] with her Medicaid insurance. Gave printout to Pt. w/ phone numbers at [facility]. Called [facility] and they confirmed Pt. could get consultation and surgery with Medicaid there. Pt. must get referral from primary care physician. Pt. plans to go to [facility] for this. At bedside RN's request, Ted also worked w/ Pt. who is now amenable to getting a nicotine patch. Having major smoking cravings, but Pt. not allowed to go out to smoke due to [facility] rules. Discussed this with hospitalist and RN. Pt. now getting nicotine patch. Friend Marivel visiting and plans to help Pt. look for her missing backpack. Pt. confirmed she still has Officer Amado' phone number should she need his help to locate the backpack. Current plan: Pt. to d/c to [facility] stay at the earliest on Monday. Please let Lydia Manning at [facility] know where Pt. goes on day of d/c so that she can send approval to [facility]. Date Signed: 03/24/2017 04:09 PM Electronically Signed By:Radha Ho LCSW [facility] CM Progress Note CM Note CM Note Notes: Reviewed chart for discharge plan, pt's progress. Per MD notes, pt will likely be ready for discharge on Mon03/27/17. [facility] () has accepted pt. LVM for Gibson at to provide update; awaiting call back. Fax received from Gibson at for release of information to [facility] and [facility]. Met w/ pt to discuss discharge plans. Pt signed release; copy provided to pt; copy placed in chart and faxed back to Gibson at [facility]. CM to call Lydia Manning at [facility] on day of discharge to alert of pt's departure and discharge location. CM will cont to follow. Current Discharge Plan: [facility] Date Signed: 03/26/2017 05:54 PM Electronically Signed By:Pearl Raphael RN [facility] CM Progress Note CM Note CM Note Notes: Patient stable for discharge, going to [facility], UTLC 100 done and submitted pending approval. Call to [employer] to try to expidite formEdie Arreaga at aware. CM to follow. Orders updated via allscri[pts. CM to follow. Date Signed: 03/27/2017 01:33 PM Electronically Signed By:Lawanda Zelaya RN [facility] CM Progress Note CM Note CM Note Notes: DC delayed as [facility] still without [id number]. Spoke with Shelley at [facility], They will get the paperwork to tomorrow. CM to follow. Date Signed: 03/27/2017 05:36 PM Electronically Signed By:Lawanda Zelaya RN Intervention Information
--- NOTE | 2017-03-28 16:55 | ASDISCHSUM ---
Discharge Information Plan Status:SNF Medically Cleared to Leave:03/27/2017 Discharge Date:03/28/2017 11:37 AM CM D/C Disposition:Care Home Facility ADT D/C Disposition:Care Home Facility Projected Discharge Date:03/28/2017 11:00 AM Transportation at D/C:Wheelchair Van Discharge Delay Reason: Follow-Up Date:03/28/2017 11:00 AM Discharge Slot: Final Diagnosis: Placement Information Referral Type:*Care Home/SNF Referral ID:[id number] Provider Name:Ele Catherineulder Address 1:[address] Address 2: City:[place] Selection Factors: State:[place] Patient Contact Information Contact Name:LUCILA Relationship: Address: Home Phone: Work Phone: City: [facility] Phone: [facility] Code: Email: Financial Information Financial Class: Primary Plan Desc:[place] Primary Plan Number:[id number] Secondary Plan Desc: Secondary Plan Number: Assessment Information [facility] Initial CM Assessment Living Arrangements What is your living Answers: Alone arrangement? Who do you live with? Type Of Residence What kind of residence do Answers: Homeless you live in? Discharge Plan Comments Coordination Status Comments Notes: Pt is a 56 y/o female admitted w/ cellulitis on her left leg. Pt currently has a wound vac. PT is recommending SNF. CM met w/ pt for dispo planning. Pt would like to go to rehab. Pt reports that she would like to stay in the [place] area and would like CM to make referrals to all [place] SNFs. CM faxed out referrals to SNF. CM completed ULTC-100 and faxed it to [facility]. CM faxed [facility]. TROY to follow. Date Signed: 03/14/2017 02:26 PM Electronically Signed By:ZACK Wilkerson [facility] Progress Note CM Note CM Note Notes: CM met w/ pt for dispo planning. CM informed pt that there aren't any female beds at [facility]. Pt is agreeable to having a referral made to their sister facility, [facility] in [place]. Pt reports that it is important for her to obtain her certificate and social security card [place]. CM sent referral to [place]. CM called Michael at [facility] and obtained the supervising appraiser's name and phone number. CM left a msg for Lydia Manning ([facility] randyanju), P#: [phone]. CM to follow. Date Signed: 03/15/2017 02:38 PM Electronically Signed By:ZACK Wilkerson LACE ASHISH Length of stay for Answers: 4-6 days current admission Acuity / Level of Care Answers: Was the patient admitted to hospital via the emergency department? Yes: Emergency dept visits in Answers: 3 last 6 months Score: 10 Date Signed: 03/16/2017 04:35 PM Electronically Signed By:Radha Ho LCSW [facility] TROY Progress Note CM Note CM Note Notes: Pt. was approved by Lydia Manning at [facility] [phone] to go to [place] LT [place] stay. [facility] PASRR is complete and non-triggering. Please call [facility] when [place] is identified. They will send approval to facility. Today Ted worked on Pt's admission to LT Medicaid facility. Gibson at [facility] not sure if [facility] can accept Pt. due to her possibly having a wound vac at d/c. Please see Allscripts for latest referral information. Ted went to update Pt. about plan today. Pt. quite sleepy. Might need to touch base with her again if she was too sleepy to understand. Pt. was grateful about plan to go to a [place] health [place] facility. CM to follow for d/c POC. Date Signed: 03/17/2017 05:17 PM Electronically Signed By:Radha Ho LCSW [facility] CM Progress Note CM Note CM Note Notes: Pt is scheduled for wound vac change tomorrow. CM still researching potential SNF to take pt with wound vac. Date Signed: 03/19/2017 02:53 PM Electronically Signed By:MARIN Rousseau [facility] TROY Progress Note CM Note CM Note Notes: Patient given pants as hers are dirty and she does not have clothes here to d/c in. TROY continues to research SNF placement with a wound vac. Date Signed: 03/20/2017 04:00 PM Electronically Signed By:Shania Limon LCSW [facility] TROY Progress Note TROY Note TROY Note Notes: Spoke with [facility] regarding patient being placed with them. Gibson states they are interested and can take her but she cannot come with a wound vac. ( with Medicaid only he states it is not cost effective for them). Spoke with patient's nurse, Radha who is uncertain how much longer patient will need the wound vac. Radha found out Dr. Grajeda wishes current wound vac dressing to remain in place until 2016. Radha does not know how much longer patient will need to be in the hospital but says there is a chance she may need another week here. TROY will pursue another facility that may take her with a wound vac but keep [facility] on the list should the dates and removal of the wound vac work out before d/c. Gibson will need medical updates on the patient on Monday. TROY will follow. Date Signed: 03/21/2017 03:42 PM Electronically Signed By:Shania Limon LCSW [facility] CM Progress Note TROY Note TROY Note Notes: Today hospitalist confirmed w/ surgeon that Pt. will need wound vac on at least until Monday03/27/2017. Possible d/c that day or soon thereafter. Plan is to keep Pt. at [facility] until then. Ted called Gibson at [facility] to check in about d/c plan. Gibson will consult with MV team today about Pt.'s admission without wound vac for early next week. Await Gibson's return call. SWer met w/ Pt. in room. Pt. agrees w/ d/c plan. Pt. very focused on getting her backpack back from homeless campsite. Pt. states she has her very important documentation in it - to include her social security card. Pt. would like to have a 'pass' to leave hospital to get it, but SWer explained why that was not possible. Pt. agreed for SWer to call the [facility] Homeless Outreach Team (HOT) (Officer John Fischer and Officer Ale Dorado) to see if they could pickling tank operator the backpack. Pt. will need to describe location to officers. Tried to call officer Estrada's cell phone, but it went straight to voicemail. Await officer's return call. Pt. states she "need[s] to get shoulder surgery". We discussed superintendent terminal plans and that we will address her concerns and discuss pre-surgery appointment for shoulder before d/c. Pt. states she has a CD disc showing her shoulder injuries in her backpack. Current plan: Await acceptance from [facility] [place]. Anticipate d/c next Monday or soon thereafter. Date Signed: 03/22/2017 03:17 PM Electronically Signed By:Radha Ho LCSW [facility] TROY Progress Note CM Note CM Note Notes: ULTC 100 approved and PASRR from [facility] non triggering. Still planning to d/c Pt. on Monday or beginning of next week due to waiting to d/c wound vac. Pt. plans to go to [facility] Medicaid [place] stay. SWer still waiting for official acceptance from [facility], [facility], or [place]. Today Amitar spoke w/ Gibson at again and he still could not commit to admission or denial. Monica from [employer] plans to visit Pt. at [facility] today or tomorrow. SWer let Pt. know about Monica's visit. Amitar coordinated w/ Officer Amado Monroe: who tried to retrieve Pt's backpack from her campsite today. Officer Amado thinks he found Pt's campsite, but did not locate backpack. Perhaps a friend is keeping it for Pt. Pt. optimistic about bag. Officer Amado said that once Pt. was admitted to LTC that he would take her out to try to find it again. Gave SWer permission to give Pt. his business card w/ cell phone. Current plan: D/c to C Medicaid [place] stay. Please notify Lydia at [facility] or when Pt. has a [place] plan for d/c. Date Signed: 03/23/2017 03:42 PM Electronically Signed By:Radha Ho LCSW [facility] CM Progress Note CM Note CM Note Notes: Ted followed-up numerous times w/ Gibson at [facility] today about admitting Pt. to LTC there. After several calls, Gibson states that [facility] approves Pt. to come there for LTC Medicaid stay. Pt. very pleased. Ted also provided resource information for Pt. today on how to get consult for potential shoulder surgery at [facility] with her Medicaid insurance. Gave printout to Pt. w/ phone numbers at [facility]. Called [facility] and they confirmed Pt. could get consultation and surgery with Medicaid there. Pt. must get referral from primary care physician. Pt. plans to go to [facility] for this. At bedside RN's request, Ted also worked w/ Pt. who is now amenable to getting a nicotine patch. Having major smoking cravings, but Pt. not allowed to go out to smoke due to [facility] rules. Discussed this with hospitalist and RN. Pt. now getting nicotine patch. Friend Marivel visiting and plans to help Pt. look for her missing backpack. Pt. confirmed she still has Officer Amado' phone number should she need his help to locate the backpack. Current plan: Pt. to d/c to [facility] stay at the earliest on Monday. Please let Lydia Manning at [facility] know where Pt. goes on day of d/c so that she can send approval to [facility]. Date Signed: 03/24/2017 04:09 PM Electronically Signed By:Radha Ho LCSW [facility] CM Progress Note CM Note CM Note Notes: Reviewed chart for discharge plan, pt's progress. Per MD notes, pt will likely be ready for discharge on Mon03/27/17. [facility] () has accepted pt. LVM for Gibson at to provide update; awaiting call back. Fax received from Gibson at for release of information to [facility] and [facility]. Met w/ pt to discuss discharge plans. Pt signed release; copy provided to pt; copy placed in chart and faxed back to Gibson at [facility]. CM to call Lydia Manning at [facility] on day of discharge to alert of pt's departure and discharge location. CM will cont to follow. Current Discharge Plan: [facility] Date Signed: 03/26/2017 05:54 PM Electronically Signed By:Pearl Raphael RN [facility] CM Progress Note CM Note CM Note Notes: Patient stable for discharge, going to [facility], UTLC 100 done and submitted pending approval. Call to [employer] to try to expidite formEdie Arreaga at aware. CM to follow. Orders updated via allscri[pts. CM to follow. Date Signed: 03/27/2017 01:33 PM Electronically Signed By:Lawanda Zelaya RN [facility] CM Progress Note CM Note CM Note Notes: DC delayed as [facility] still without [id number]. Spoke with Shelley at [facility], They will get the paperwork to tomorrow. CM to follow. Date Signed: 03/27/2017 05:36 PM Electronically Signed By:Lawanda Zelaya RN Intervention Information
== END 2017-03-28 11:37 | DRG 577 ==
LOC: EDUNIT# → OBSVTOIN 15:40 → F3E 18:03
PROVIDERS: ADMIT Hospitalist; ATTEND Hospitalist
DX: S80.212A Abrasion, left knee, initial encounter (principal); T79.8XXA Other early complications of trauma, initial encounter; M60.062 Infective myositis, left lower leg; L03.116 Cellulitis of left lower limb; L02.416 Cutaneous abscess of left lower limb; B95.61 Methicillin susceptible Staphylococcus aureus infection as the cause of diseases classified elsewhere; E87.6 Hypokalemia; N17.9 Acute kidney failure, unspecified; F17.210 Nicotine dependence, cigarettes, uncomplicated; R41.0 Disorientation, unspecified; R00.0 Tachycardia, unspecified; J45.909 Unspecified asthma, uncomplicated; M25.511 Pain in right shoulder; I34.1 Nonrheumatic mitral (valve) prolapse; Z59.0 Homelessness
CPT/HCPCS: 84134-90; 96365; 97110-GP; 97116-GP; 97162-GP; 97166-GO; 97530-GO; 97530-GP; 97532-GO; 97535-GO; A9585; C1751; J0171; J0690; J1170; J1335; J1650; J2250; J2370; J2405; J2704; J2765; J2997; J3010; J3370; J3475

== ENCOUNTER 2017-06-08 12:58 | Inpatient (IN) | payer MEDICAID ==
--- NOTE | 2017-06-08 13:36 | EDPHY ---
H & P Time Seen by Provider: 06/08/17 13:31 HPI/ROS: CHIEF COMPLAINT: Anxiety, increased heart rate HISTORY OF PRESENT ILLNESS: The patient is a 56 y/o female with a history of COPD, CAD, and mitral valve prolapse, arriving via EMS with chest pain shortness of breath. Onset of cp and SOB while walking to the grocery store. Associated with dizziness and near syncope. On arrival back to [facility], HR 170's per staff climate scientist. She was given an Aspirin when she returned to [facility]. These symptoms lasted around 30 minutes, and were similar to a prior heart attack 20 years ago. Per EMS, the patient had a heart rate of 99 on arrival. She is noncompliant with Aspirin and her asthma inhaler. Denies having a service station equipment mechanic in [place]. Denies chest pain now, swelling or pain in her legs, fever or other pertinent symptoms. REVIEW OF SYSTEMS: Aside from elements discussed in the HPI, a comprehensive 10-point review of systems was reviewed and is negative. Past Medical/Surgical History: COPD, CAD, mitral valve prolapse, cholecystectomy, hysterectomy Social History: Lives at [facility], smoker, single Smoking Status: Current some day smoker Physical Exam: General Appearance: Alert, pleasant Eyes: Pupils equal and round, no conjunctival pallor or injection ENT, Mouth: Mucous membranes moist Neck: Normal inspection Respiratory: Scattered expiratory wheezing Cardiovascular: Regular rate and rhythm Gastrointestinal: Abdomen is soft and non-tender Neurological: A&O, nonfocal Skin: Warm and dry, no rash Extremities: Nontender, no pedal edema Psychiatric: Mood and affect normal Constitutional: Initial Vital Signs Temperature (C) 36.5 C 06/08/17 13:02 Heart Rate 99 06/08/17 13:02 Respiratory Rate 18 06/08/17 13:02 Blood Pressure 146/103 H 06/08/17 13:02 O2 Sat (%) 93 06/08/17 13:02 O2 Delivery Mode Room Air Allergies/Adverse Reactions: No Known Allergies Allergy (Verified 03/13/17 13:59) Home Medications: Medication Instructions Recorded Gabapentin [Neurontin 400 MG (*)] 1,200 mg PO TID 03/13/17 Multivitamins [Multivitamin (*)] 1 each PO DAILY tab 03/27/17 Polyethylene Glycol 3350 [Miralax 17 gm PO DAILY pkt 03/27/17 17 gm (*)] Herbals/Supplements -Info Only 1 ea PO DAILY 06/08/17 Hydrocodone/Acetaminophen [[place] 1 tab PO Q8 PRN 06/08/17 5/325 (*)] Lisinopril [Zestril 10 mg (*)] 10 mg PO DAILY 06/08/17 Sennosides/Docusate Sodium 2 tab PO BID 06/08/17 [Senokot-S] Venlafaxine HCl [Venlafaxine HCl 75 mg PO DAILY 06/08/17 ER] Medical Decision Making - Diagnostics EKG Interpretation: EKG interpreted by me reveals sinus tachycardia, rate 100, LVH, no ST or T segment changes. Interpretation: Abnormal EKG Imaging Results: Imaging Impressions Chest X-Ray 06/08/17 13:47 Impression: Negative chest. Imaging: I viewed and interpreted images myself ED Course/Re-evaluation: The patient is a 56 y/o female with a history of COPD, CAD, and mitral valve prolapse, arriving via EMS presenting with exertional shortness of breath and chest pain, asymptomatic now. Clinical presentation concerning for acute coronary syndrome, given prior history of CO and typical symptoms. Stat EKG reveals no evidence of ischemia or serious dysrhythmia. She already took an aspirin today. Troponin and chest x-ray are normal. The patient was asymptomatic throughout her emergency department stay. security monitor revealed normal sinus rhythm throughout. Given typical symptoms of exertional chest pain, I will admit her for further cardiac evaluation. I do not suspect an alternative etiology for her chest pain. Chest x-ray reveals no evidence of pneumothorax or pneumonia. The symptoms are atypical for pulmonary embolism and she has no risk factors. I do not feel that further evaluation for pulmonary embolism is indicated. 1539: Consulted with hospitalist service, Dr. Pearce accepts admission of this patient. Differential Diagnosis: Differential diagnosis includes though it is not limited to pneumonia, pneumothorax, pulmonary embolism, aortic dissection, pericarditis, acute coronary syndrome. - Data Points Laboratory Results: Laboratory Results 06/08/17 14:35 06/08/17 14:35 06/08/17 06/08/17 14:35 14:35 WBC 11.15 10^3/uL H 10^3/uL (3.80-9.50) RBC 5.72 10^6/uL H 10^6/uL (4.18-5.33) Hgb 17.3 g/dL H g/dL (12.6-16.3) Hct 49.2 % H % (38.0-47.0) MCV 86.0 fL fL (81.5-99.8) MCH 30.2 pg pg (27.9-34.1) MCHC 35.2 g/dL g/dL (32.4-36.7) RDW 13.5 % % (11.5-15.2) Plt Count 269 10^3/uL 10^3/uL (150-400) MPV 10.5 fL fL (8.7-11.7) Neut % (Auto) 60.6 % % (39.3-74.2) Lymph % (Auto) 29.3 % % (15.0-45.0) [place] % (Auto) 8.3 % % (4.5-13.0) Eos % (Auto) 1.0 % % (0.6-7.6) Baso % (Auto) 0.4 % % (0.3-1.7) Nucleat RBC Rel Count 0.0 % % (0.0-0.2) Absolute Neuts (auto) 6.75 10^3/uL H 10^3/uL (1.70-6.50) Absolute Lymphs (auto) 3.27 10^3/uL H 10^3/uL (1.00-3.00) Absolute Monos (auto) 0.93 10^3/uL H 10^3/uL (0.30-0.80) Absolute Eos (auto) 0.11 10^3/uL 10^3/uL (0.03-0.40) Absolute Basos (auto) 0.05 10^3/uL 10^3/uL (0.02-0.10) Absolute Nucleated RBC 0.00 10^3/uL 10^3/uL (0-0.01) Immature Gran % 0.4 % % (0.0-1.1) Immature Gran # 0.04 10^3/uL 10^3/uL (0.00-0.10) Sodium 142 mEq/L mEq/L (135-145) Potassium 4.1 mEq/L mEq/L (3.5-5.2) Chloride 104 mEq/L mEq/L (97-110) Carbon Dioxide 24 mEq/l mEq/l (22-31) Anion Gap 14 mEq/L mEq/L (8-16) BUN 17 mg/dL mg/dL (7-23) Creatinine 0.6 mg/dL mg/dL (0.6-1.0) Estimated GFR > 60 Glucose 87 mg/dL mg/dL (70-100) Calcium 9.9 mg/dL mg/dL (8.5-10.4) Troponin I 0.014 ng/mL ng/mL (0.000-0.034) NT-Pro-B Natriuret Pep 77 pg/mL pg/mL (0-125) Medications Given: Discontinued Medications Sodium Chloride (Ns) 1,000 mls @ 3,000 mls/hr IV ONCE ONE Stop: 06/08/17 17:00 Last Admin: 06/08/17 16:50 Dose: 1,000 mls Nicotine (Nicoderm Cq) 21 mg TD EDNOW ONE Stop: 06/08/17 15:20 Last Admin: 06/08/17 15:24 Dose: 21 mg Departure - Departure Disposition: [facility] Inpatient Acute Clinical Impression: Shortness of breath Chest pain Qualifiers: Chest pain type: other chest pain Qualified Code(s): R07.89 - Other chest pain Condition: Fair Report Scribed for: Candie Kunz Report Scribed by: Eva Rodríguez Date of Report: 06/08/17 Time of Report: 13:34 Physician Review and Approval Statement: 06/08/17 14:07 Portions of this note were transcribed by a associate medical director. I personally performed a history, physical exam, medical decision making, and confirmed accuracy of information the transcribed note.
--- NOTE | 2017-06-08 14:20 | CPEKG ---
Heart Rate: 100 RR Interval: 600 P-R Interval: 136 QRSD Interval: 88 QT Interval: 348 QTC Interval: 449 P [place]: 73 QRS [place]: 37 T Wave [place]: 60 EKG Severity - ABNORMAL ECG - EKG Impression: SINUS TACHYCARDIA EKG Impression: PROBABLE LEFT ATRIAL ABNORMALITY EKG Impression: LEFT VENTRICULAR HYPERTROPHY Electronically Signed By: Candie Kunz 08-Jun-2017 20:55:20
[2017-06-08 14:51] LABS: PLATELET COUNT 269 10^3/uL (150-400)
[2017-06-08] MEDS ORDERED: NICOTINE 21 MG/24 HR PATCH TD ONE (15:19)
[2017-06-08] MEDS ORDERED: ACETAMINOPHEN 325 MG TAB PO PRN (16:38)
[2017-06-08] MEDS ORDERED: ONDANSETRON 4 MG/2 ML VIAL IVP PRN (16:38)
[2017-06-08] MEDS ORDERED: ONDANSETRON DISINTEGRATING 4 MG TAB PO PRN (16:38)
[2017-06-08] MEDS ORDERED: NS 1,000 ML IV ONE (16:41)
--- NOTE | 2017-06-08 18:23 | GHP ---
[f rep st] HISTORY AND PHYSICAL DATE OF ADMISSION: 06/08/2017 CHIEF COMPLAINT: Chest pain. HISTORY OF PRESENT ILLNESS: This is a 56-year-old female with a history of recent hospitalization fo r MSSA cellulitis who is returning with sudden onset of substernal chest pressure while ambulating to the grocery store today. The patient reports a heavy sensation across the middle of her chest that radiated to her left jaw, was associated with some lightheadedness and diaphoresis as well as mild sh ortness of breath as well as palpitations. The patient sat and rested with the attempt to bringing h er heart rate down and had improvement in her symptoms. Per her report, she has had heart attacks in the past, both in the 80s and 90s, but has been unlimited since those episodes. Denies any recent h istory of dyspnea or chest pain while walking or completing her activities of daily living. In the e mergency department, the patient reports feeling her normal self again, no longer experiencing palpit ations, no longer experiencing shortness of breath or chest discomfort. PAST MEDICAL HISTORY: 1. Reported coronary artery disease with MIs in the 80s and 90s. 2. COPD. 3. Recent MSSA cellulitis with skin grafting. 4. Chronic pain with continuous narcotic dependency. 5. History of breast cancer in remission. 6. Chronic orthopedic pain. SOCIAL HISTORY: The patient smokes half a pack of cigarettes a day. Does not drink alcohol, but smo kes marijuana as frequently as she can. No illicit drugs. FAMILY HISTORY: Positive for hypertension and cardiomegaly in her mom. ADVANCED DIRECTIVES: The patient is full COR, full tube. Her friend, Carolann, from [place] would be her medical decision maker. REVIEW OF SYSTEMS: A 10-point review of systems is negative with the exception of that reported in t he HPI. PHYSICAL EXAMINATION: VITAL SIGNS: Blood pressure 134/88, heart rate 98, respiratory rate 16, satur ating 93% on room air, 36.5. GENERAL: This is a healthy-appearing middle-aged female in no acute di stress. Appears older than stated age. HEENT: Notable for dry mucous membranes. Eye exam is negat william for any icterus. CARDIAC: The patient has regular rate and rhythm. S1 is more prominent. No c lear murmurs are auscultated. PULMONARY: Clear to auscultation bilaterally. GASTROINTESTINAL: Pos itive bowel sounds. ABDOMEN: Soft and nontender. MUSCULOSKELETAL: Negative for any lower extremit y edema. SKIN: Negative for any rashes. NEUROLOGIC: She is alert and oriented x3. PSYCHIATRIC: She is pleasant and cooperative on interview and examination. DATA: White count 11.1, hematocrit 42.9, platelets of 269. Creatinine is 0.6. Troponin 0.014. EKG , which I personally reviewed and interpreted, shows sinus rhythm. Normal axis. No acute ST-T ladd es. She does have LVH by voltage. Chest x-ray, which I personally reviewed and interpreted, shows n o acute infiltrates or edema. ASSESSMENT AND PLAN: This is a 56-year-old female with a history of reported coronary artery disease , presenting with chest pain. 1. Acute chest pain. The exertional quality and description of the pain are certainly concerning ba sed on her reported history of heart disease. Initial troponin and EKG are both reassuring and withi n negative range. Will admit the patient for serial troponins, telemetry monitoring and serial EKGs. If the patient rules out overnight, I believe she would be a good candidate for a treadmill stress testing. 2. Chronic pain with continuous narcotic dependency. The patient will be continued on her home medi cations once reconciled. 3. Tobacco abuse. We have written the patient for a nicotine patch. 4. Chronic obstructive pulmonary disease. The patient's lung sounds are clear. No need for acute t reatment of exacerbation. 5. Polycythemia. I suspect this is likely volume related. Will treat with IV fluids, and recheck i n the morning. 6. Prophylaxis with Lovenox. 7. Diet. Cardiac. 8. Disposition. I expect in less than 2 midnights if the patient rules out and has negative stress testing. I have discussed the case with the emergency room physician. The patient will be triaged t o the PCU for chest pain rule out. /[id number]/MODL
--- NOTE | 2017-06-09 00:15 | CPEKG ---
Heart Rate: 75 RR Interval: 800 P-R Interval: 140 QRSD Interval: 98 QT Interval: 412 QTC Interval: 461 P [place]: 73 QRS [place]: 55 T Wave [place]: 70 EKG Severity - ABNORMAL ECG - EKG Impression: SINUS RHYTHM EKG Impression: PROBABLE LEFT VENTRICULAR HYPERTROPHY Electronically Signed By: Harry Naidu 11-Jun-2017 10:49:05
[2017-06-09] MEDS: HYDROCODONE/APAP 5/325 TAB PO PRN ×2 (04:24→17:30)
[2017-06-09] MEDS: NICOTINE 21 MG/24 HR PATCH TD SCH (08:03)
[2017-06-09] MEDS: VENLAFAXINE XR 75 MG CAP PO SCH (08:04)
[2017-06-09] MEDS: LISINOPRIL 10 MG TAB PO SCH (08:04)
[2017-06-09] MEDS: ENOXAPARIN 40 MG/0.4 ML SYR SC SCH (08:04)
[2017-06-09] MEDS: GABAPENTIN 400 MG CAP PO PRN ×2 (08:04→23:49)
--- NOTE | 2017-06-09 10:07 | ASMTCASEMG ---
Living Arrangements What is your living Answers: Alone arrangement? Who do you live with? Type Of Residence What kind of residence do Answers: Homeless you live in? Discharge Plan Comments Coordination Status Comments Notes: Pt is a 56 y/o female admitted for chest pain. Pt was here at [facility] on 03/13/17 to 03/28/17 for cellulitis on the left leg and an abscess. OT has been ordered and awaiting recommendations. Radha Ingram contacted CM and informed her that pt will need help w/ transportation at time of d/c. CM to follow for d/c needs. Plan: TBD Date Signed: 06/09/2017 10:07 AM Electronically Signed By:ZACK Wilkerson
[2017-06-09] MEDS ORDERED: NS 1,000 ML IV SCH (10:45)
--- NOTE | 2017-06-09 14:56 | CPR ---
[f rep st] NONINVASIVE CARDIAC PROCEDURE REPORT PROCEDURE PERFORMED: Exercise treadmill myocardial perfusion imaging study. INDICATION FOR PROCEDURE: Patient reported episodes of palpitations, with near-syncope. PRE: After obtaining informed consent, patient was placed on electrocardiogram. Initial EKG shows s inus rhythm, normal axis, possible LVH. No significant ST or T-wave abnormalities. Patient denies a ny chest pressure or pain. Reporting no symptoms suggestive of ischemia. Initial blood pressure is 142/82, saturation 94% on room air. EXERCISE: The patient was placed on exercise treadmill following the standard Eliot protocol with th e following findings. 1. Patient exercised for 7 minutes 10 seconds. 2. Patient obtained a heart rate of 146 beats per minute, which was 89% of MPHR. 3. 8.4 METs. 4. Patient had no chest pain. 5. Patient had no significant ST shifts at peak exercise suggestive of ischemia. 6. SpO2 remained greater than 90% throughout testing. 7. BP variation during testing: Rest - 142/82. Peak - 160/80. 8. Patient was noted to have rare PVCs during stress. 9. Test was stopped due to maximum effort. 10. Polk treadmill score of 7, placing patient at low cardiovascular risk. RECOVERY: Patient recovered for 5 minutes. Heart rate returned back to baseline. Blood pressure al so decreased back to baseline. The patient remained asymptomatic of symptoms suggestive of ischemia. Denies of any. Her vital signs were stable. IMPRESSION: A 56-year-old female, admitted to hospital for evaluation of palpitations, near-syncope. Undergoing exercise treadmill to evaluate for ischemia. Patient with no significant ST shifts at p eak exercise suggestive of ischemia. Patient had no symptoms suggestive of ischemia. Rare PVCs note d. Polk treadmill score of 7, placing her at low cardiovascular risk. The patient's vital signs are stable. She is being sent down to [facility] for post-myocardial perfusion imaging. /[id number]/MODL
--- NOTE | 2017-06-09 15:03 | ASMTCMCOM ---
CM Note CM Note Notes: Pts case discussed in morning rounds w/ Dr. Urena and Onelia RN. Pt is currently residing at [facility] under [place] [facility]. Pt will return back to [facility] once medically stable. CM sent [facility] updates. CM spoke to Hubbard at [facility] and he informed CM if pt discharges over the wknd to call the main number to arrange d/c. CM to follow. Plan: [facility] Date Signed: 06/09/2017 03:02 PM Electronically Signed By:ZACK Wilkerson
[2017-06-09] MEDS: ASPIRIN 81 MG CHEWABLE TAB PO SCH (15:18)
--- NOTE | 2017-06-09 16:39 | HOSPPROG ---
Hospitalist Progress Note Assessment/Plan: New patient encounter #chest pain #hx of CAD #COPD, not in exacerbation #Tobacco abuse disorder #Recent MSSA cellulitis #Polycythemia, improving #Homelessness #Weakness and deconditioning Plan: -Start Aspirin -The pt had a stress nuclear test which shows possible ischemia in the inferior aspect -She needs a CT angiogram -She has lost IV access and will need a picc -will monitor overnight -provide additional IVF -PT/OT -change to inpatient -likely discharge in a.m. Subjective: no further cp. no SOB. a bit anxious Objective: Vital Signs Temp Pulse Resp BP Pulse Ox 36.7 C 87 16 170/110 H 95 06/09/17 16:00 06/09/17 16:00 06/09/17 16:00 06/09/17 16:00 06/09/17 16:00 Laboratory Results 06/09/17 04:25 06/08/17 06/09/17 06/10/17 05:59 05:59 05:59 Intake Total 120 Balance 120 - Physical Exam Constitutional: no apparent distress Eyes: PERRL Ears, Nose, Mouth, Throat: moist mucous membranes, hearing normal Cardiovascular: regular rate and rhythym, No edema Respiratory: no respiratory distress, no rales or rhonchi Gastrointestinal: normoactive bowel sounds Genitourinary: no bladder fullness Skin: warm Neurologic: AAOx3 Psychiatric: interacting appropriately, anxious, No not anxious Lymph, Heme, Immunologic: No petechiae ICD10 Worksheet Patient Problems: Problems Problem Status Onset Chest pain Acute Shortness of breath Acute Cellulitis of left leg Acute
[2017-06-09] MEDS ORDERED: METOPROLOL TARTRATE 25 MG TAB PO ONE (17:15)
[2017-06-09] MEDS ORDERED: LIDOCAINE 1% 300 MG/30 ML SDV ONE (17:15)
--- NOTE | 2017-06-09 17:26 | PDMN ---
Medical Necessity Medical necessity: C/M review: est. > 2 MN LOS for eval and treat acute chest pain, 06/09/2017 myocardial perfusion scan shows possible ischemia in the inferior aspect, weakness, deconditioning requiring 06/09/2017 PICC placement, planned CT angiogram of the chest, IV fluids, ongoing cardiac monitoring, comorbid history of CAD, tobacco abuse disorder, recent MSSA cellulitis, polycythemia, homelessness per 06/09/2017 Hospitalist progress note.
[2017-06-09] MEDS ORDERED: IOPAMIDOL (ISOVUE 370) 100 ML BTL IV ONE (18:34)
[2017-06-10] MEDS: HYDROCODONE/APAP 5/325 TAB PO PRN ×2 (01:45→09:57)
[2017-06-10 06:17] LABS: PLATELET COUNT 225 10^3/uL (150-400)
[2017-06-10 08:00] VITALS: TEMP 98.9
[2017-06-10] MEDS: LISINOPRIL 10 MG TAB PO SCH (08:31)
[2017-06-10] MEDS: ASPIRIN 81 MG CHEWABLE TAB PO SCH (08:31)
[2017-06-10] MEDS: VENLAFAXINE XR 75 MG CAP PO SCH (08:31)
[2017-06-10] MEDS: GABAPENTIN 400 MG CAP PO PRN (08:32)
[2017-06-10] MEDS: NICOTINE 21 MG/24 HR PATCH TD SCH (08:32)
[2017-06-10] MEDS: ENOXAPARIN 40 MG/0.4 ML SYR SC SCH (09:56)
[2017-06-10] MEDS ORDERED: LISINOPRIL 20 MG TAB PO SCH (10:15)
[2017-06-10] MEDS ORDERED: ALBUTEROL 60 PUFFS/8 GM MDI IH PRN (10:16)
[2017-06-10] MEDS ORDERED: LISINOPRIL 10 MG TAB PO SCH (10:17)
[2017-06-10] MEDS ORDERED: HYDROCODONE/APAP 5/325 TAB PO PRN (10:17)
[2017-06-10] MEDS ORDERED: LISINOPRIL 20 MG TAB PO ONE (10:45)
[2017-06-10 11:35] VITALS: RESP 18; O2SAT 96
[2017-06-10] MEDS ORDERED: ATORVASTATIN CALCIUM 20 MG TAB PO SCH (13:30)
[2017-06-10] MEDS ORDERED: METOPROLOL TARTRATE 25 MG TAB PO SCH (14:15)
--- NOTE | 2017-06-10 14:21 | PDDCSUM ---
Discharge Summary Discharge Summary: 56 yo female with hx of CAD who was admitted due to chest pain. She had negative troponins and EKG. A stress nuclear test showed normal treadmill component, but the nuclear imaging was c/w inferolateral wall Left ventricle with decreased uptake. A CT angiogram was recommended and this showed 13% stenosis of diagonal branches off the LAD and 22% stenosis of the first diagonal off the left circumflex. Imaging was reviewed by cardiology who agrees with medical mgmt bp was elevated and Lisinopril was increased. Metoprolol was started aspirin was started atorvastatin was started DDX: #chest pain #hx of CAD #COPD, not in exacerbation #Tobacco abuse disorder #Recent MSSA cellulitis #Polycythemia, improving #Homelessness #Weakness and deconditioning Exam: NAD AAOX3 RRR CTA B S/NT/ND NO LE EDEMA F/U: PER ABOVE TOTAL CARE TIME SPENT ON DISCHARGE IS 35 MINS
[2017-06-10 14:29] VITALS: BP 160/92; PULSE 78
--- NOTE | 2017-06-10 15:38 | ASMTCMCOM ---
CM Note CM Note Notes: 06/10/2017 Case Management Note Informed by Abilio from [facility] that transport is not available on the weekends. [facility] unwilling to pay for [facility] or [facility] wheel chair transport. Arranged cab through [place] for [address]. Confirmation candace [phone]. Requested Abilio meet pt when dropped off at [facility]. Abilio agreed. Sent hard copies of final orders with patient in addition to faxing. Date Signed: 06/10/2017 03:37 PM Electronically Signed By:Mari Baltazar RN
== END 2017-06-10 16:04 | DRG 313 ==
LOC: EDUNIT# → F2W 20:05 → OBSVTOIN 06-09 16:40
PROVIDERS: ADMIT Hospitalist; ATTEND Hospitalist
PROC: 02HV33Z Insertion of Infusion Device into Superior Vena Cava, Percutaneous Approach (ICD-10-PCS; principal; 2017-06-10)
DX: R07.9 Chest pain, unspecified (principal); J44.1 Chronic obstructive pulmonary disease with (acute) exacerbation; Z59.0 Homelessness; D75.1 Secondary polycythemia; I25.10 Atherosclerotic heart disease of native coronary artery without angina pectoris; I25.2 Old myocardial infarction; G89.29 Other chronic pain; Z72.0 Tobacco use; Z86.19 Personal history of other infectious and parasitic diseases; Z85.3 Personal history of malignant neoplasm of breast
CPT/HCPCS: 97165-GO; A9500; C1751; G0378; J1650; Q9967

== ENCOUNTER 2017-09-19 16:07 | Emergency (ER) | payer MEDICAID ==
[2017-09-19 16:20] VITALS: BP 90/65
--- NOTE | 2017-09-19 16:29 | EDPHY ---
H & P Time Seen by Provider: 09/19/17 16:18 HPI/ROS: CHIEF COMPLAINT: Alcohol intoxication, mechanical fall HISTORY OF PRESENT ILLNESS: 57-year-old female presents to the emergency department by ambulance after having a witnessed mechanical fall. Patient was panhandling on the street and tripped over the sidewalk and fell hitting her left lower lip. No loss of consciousness. No witnessed seizure activity. The patient complains of isolated pain to her lower lip. She denies a headache. Denies neck pain. Denies back pain. Denies chest pain or difficulty breathing. No presyncopal symptoms prior to her fall. Denies abdominal pain. The patient admits to drinking alcohol. She states "I drink whenever I can". She does smoke marijuana. She denies any other substance abuse. REVIEW OF SYSTEMS: Constitutional: No fever, no chills. Eyes: No double or blurry vision. ENT: No sore throat. Respiratory: No cough, no shortness of breath. Cardiac: No chest pain. Gastrointestinal: No abdominal pain, vomiting or diarrhea. Genitourinary: No dysuria. Musculoskeletal: No neck or back pain. Skin: Lip abrasion. No rashes. Neurological: No headache. Past Medical/Surgical History: Alcoholism, hip replacement, orthopedic surgeries Social History: Patient is single. Smoking Status: Former smoker Physical Exam: General Appearance: Alert, no distress. Smells strongly of alcohol. Mentating normally and answering questions appropriately. Eyes: Pupils equal and round. Extraocular motions are all intact. ENT: Mouth: Mucous membranes moist. No dental injury or malocclusion. Superficial abrasion noted to the left lower lip. No active bleeding noted. Respiratory: No wheezing, rhonchi, or rales, lungs are clear to auscultation. Cardiovascular: Regular rate and rhythm. Gastrointestinal: Abdomen is soft and nontender, no masses, no rebound or guarding, bowel sounds normal. Neurological: Alert and oriented x 3, cranial nerves II through XII grossly intact Skin: Warm and dry, no rashes. Musculoskeletal: Nontender to palpate along the cervical, thoracic or lumbar spine. Neck is supple. Extremities: Full range of motion and no peripheral edema. Psychiatric: Patient is oriented X 3, there is no agitation. Constitutional: Initial Vital Signs Temperature (C) 36.3 C 09/19/17 16:08 Heart Rate 57 L 09/19/17 16:08 Respiratory Rate 14 09/19/17 16:08 Blood Pressure 90/65 L 09/19/17 16:08 O2 Sat (%) 90 L 09/19/17 16:08 O2 Delivery Mode Room Air Allergies/Adverse Reactions: No Known Allergies Allergy (Verified 03/13/17 13:59) Home Medications: Medication Instructions Recorded Gabapentin [Neurontin 400 MG (*)] 1,200 mg PO TID 03/13/17 Multivitamins [Multivitamin (*)] 1 each PO DAILY tab 03/27/17 Polyethylene Glycol 3350 [Miralax 17 gm PO DAILY pkt 03/27/17 17 gm (*)] Herbals/Supplements -Info Only 1 ea PO DAILY 06/08/17 Hydrocodone/Acetaminophen [[place] 1 tab PO Q8 PRN 06/08/17 5/325 (*)] Sennosides/Docusate Sodium 2 tab PO BID 06/08/17 [Senokot-S] Venlafaxine HCl [Venlafaxine HCl 75 mg PO DAILY 06/08/17 ER] Albuterol [Proventil Inhaler HFA 2 puffs IH Q4HRS PRN #1 mdi 06/10/17 (*)] Aspirin [Aspirin 81mg (*)] 81 mg PO DAILY #30 tab.chew 06/10/17 Atorvastatin Calcium [Lipitor 20 20 mg PO DAILY #30 tab 06/10/17 mg (*)] Lisinopril [Zestril 10 mg (*)] 30 mg PO DAILY #30 tab 06/10/17 Metoprolol Tartrate [Lopressor 25 12.5 mg PO BID #60 tab 06/10/17 mg (*)] Medical Decision Making ED Course/Re-evaluation: 57-year-old female presents to the emergency department by ambulance with mechanical fall. Patient had no reported loss of consciousness. This was a witnessed fall. She admits to drinking alcohol. She smells strongly of alcohol. She is able to ambulate. She will be discharged to the [facility] [place]. She has been a resident at [facility] in the past. The patient is a current resident at [facility]. They came to the emergency department to bring her back to [facility]. Differential Diagnosis: Altered mental status including but not limited to hypoglycemia, infectious process, electrolyte abnormality, head injury and intoxicants. Departure - Departure Disposition: Home, Routine, Self-Care Clinical Impression: Alcohol intoxication Qualifiers: Complication of substance-induced condition: uncomplicated Qualified Code(s): F10.920 - Alcohol use, unspecified with intoxication, uncomplicated Condition: Good Instructions: Alcohol Intoxication (ED) Additional Instructions: You should not drink alcohol in excess. Please return if you have any concerns. Referrals: [facility] [Outside] - As per Instructions
--- NOTE | 2017-09-19 17:11 | ASMTCAGE ---
CAGE Additional Comments Pt still heavily intoxicated, states she is not interested in quitting drinking alcohol. Date Signed: 09/19/2017 05:11 PM Electronically Signed By:Radha Carlton RN
--- NOTE | 2017-09-19 17:16 | ASDISCHSUM ---
Discharge Information Plan Status:SNF Medically Cleared to Leave: Discharge Date:09/19/2017 05:00 PM D/C Disposition:[facility]ison Facility ADT D/C Disposition:Home, Routine, Self-Care Projected Discharge Date:09/19/2017 05:00 PM Transportation at D/C:Friend Discharge Delay Reason: Follow-Up Date:09/19/2017 05:00 PM Discharge Slot: Final Diagnosis: Placement Information Patient Contact Information Contact Name:LUCILA Relationship: Address: Home Phone: Work Phone: City: Alternate Phone: State/[employer] Code: Email: Financial Information Financial Class:Medicaid Primary Plan Desc:[employer] Primary Plan Number:[id number] Secondary Plan Desc: Secondary Plan Number: Assessment Information CAGE Questionnaire CAGE Additional Comments Pt still heavily intoxicated, states she is not interested in quitting drinking alcohol. Date Signed: 09/19/2017 05:11 PM Electronically Signed By:Radha Carlton RN [facility] Progress Note CM Note CM Note Notes: Pt presented to the ED via EMS from a street corner where she was panhandling. Pt had a mechanical fall, -LOC. Pt is heavily intoxicated, not interested in quitting drinking. Pt lives at [facility]. Contacted ([phone]) and spoke with staff about transportation back to their facility. Alexia, Wireless Network Engineer at , very familiar with patient and was able to come pick pt up and transport back to . CM available for further assistance if needed. Date Signed: 09/19/2017 05:14 PM Electronically Signed By:Radha Carlton RN Intervention Information Intervention Type:Transportation Date of Service:09/19/2017 05:15 PM Patient Type:Emergency Room Staff Member:NIKOLE Carlton, Radha Hours:0.25 Discipline:Product Management Analyst Severity: Comment:Contacted [facility] to transport pt b ack to their facility.
== END 2017-09-19 17:00 | disposition home or self-care (01) ==
LOC: EDUNIT#
DX: F10.920 Alcohol use, unspecified with intoxication, uncomplicated (principal); Z79.82 Long term (current) use of aspirin; Z87.891 Personal history of nicotine dependence; W01.198A Fall on same level from slipping, tripping and stumbling with subsequent striking against other object, initial encounter

== ENCOUNTER 2018-01-06 | Emergency (ER) | payer OTHER | END 2018-01-06 20:34 | disposition home or self-care (01) ==